=== PATIENT | male | born 1990 | race Caucasian/White ===

== ENCOUNTER → 2020-08-07 13:06 | Outpatient (BNVA) | payer MEDICAID, SELFPAY | PROVIDERS: PCP Internal Medicine; Referring Provider Internal Medicine; Visit Provider Anesthesiology | DX: M43.17 Spondylolisthesis, lumbosacral region (principal); M47.817 Spondylosis without myelopathy or radiculopathy, lumbosacral region; G89.4 Chronic pain syndrome | CPT/HCPCS: 99204 ==

== ENCOUNTER 2020-09-24 11:26 | Emergency (ER) | payer MEDICAID, SELFPAY ==
[2020-09-24 11:32] VITALS: BP 115/70; PULSE 75; RESP 18; TEMP 37.7; O2SAT 98; BMI 39.5
--- NOTE | 2020-09-24 11:37 | ED.URI ---
HPI - URI/Sore Throat General Chief Complaint: Upper Respiratory Symptoms Stated Complaint: headache, sore throat, chest pressure Time Seen by Provider: 09/24/20 11:34 Source: patient Mode of arrival: ambulatory Limitations: no limitations History of Present Illness HPI Narrative: States he has had some body aches and nasal congestion exposure to another co-worker at work with positive COVID here for COVID test. Denies any chest pain shortness of breath. Severity: mild Associated symptoms: denies other symptoms Treatments prior to arrival: none Related Data Home Medications Medication Instructions Recorded Confirmed acetaminophen 500 mg tablet 500 mg PO Q6H PRN 08/05/20 08/05/20 clonidine HCl 0.1 mg tablet 0.1 mg PO BEDTIME 08/05/20 08/05/20 cyclobenzaprine 10 mg tablet 10 mg PO BEDTIME 08/05/20 08/05/20 escitalopram oxalate 20 mg tablet 20 mg PO DAILY 08/05/20 08/05/20 famotidine 40 mg tablet 40 mg PO DAILY 08/05/20 08/05/20 fluconazole 100 mg tablet 100 mg PO DAILY 08/05/20 08/05/20 levalbuterol tartrate 45 2 inh INHALATION Q6H 08/05/20 08/05/20 mcg/actuation aerosol inhaler omeprazole 20 mg capsule,delayed 20 mg PO DAILY 08/05/20 08/05/20 release topiramate 100 mg tablet 100 mg PO BEDTIME 08/05/20 08/05/20 Previous Rx's Medication Instructions Recorded tizanidine 4 mg capsule 4 mg PO TID PRN 30 Days #90 cap 08/21/20 Allergies Allergy/AdvReac Type Severity Reaction Status Date / Time ibuprofen [From Motrin] Allergy Unknown UNKNOWN Unverified 07/20/20 15:44 Review of Systems Review of Systems: Constitutional: No Weight loss, No Fever, No Chills, No Night Sweats, No Fatigue, No Malaise ENT/Mouth: No Hearing loss, No Ear Pain, + Nasal Congestion, No Sinus Pain, No Hoarseness, No sore throat, + Rhinorrhea, No Swallowing Difficulty Eyes: No Eye Pain, No Swelling, No Redness, No Foreign Body, No Discharge, No Vision Changes Cardiovascular: No Chest Pain, No SOB, No Dyspnea on Exertion, No Orthopnea, No Edema, No Palpitations Respiratory: No Cough, No Sputum, No Wheezing, No Smoke Exposure, No Dyspnea Gastrointestinal: No Nausea, No Vomiting, No Diarrhea, No Constipation, No abdominal Pain, No Hematochezia, No Melena Genitourinary: no irregular bleeding, No Dysuria, No Urinary Frequency, No Hematuria, No Urinary Incontinence, No Urgency, No Flank Pain, No Urinary Flow Changes, No Hesitancy Musculoskeletal: No joint pain, No Myalgias, No Joint Swelling Skin: No Skin Lesions, No rash Neuro: No Weakness, No Numbness, No Paresthesias, No Loss of Consciousness, No Dizziness, No Headache Psych: No Anxiety/Panic, No Depression Heme/Lymph: No Bruising, No Bleeding,No Lymphadenopathy Endocrine: No Polyuria, No Polydipsia, No Temperature Intolerance Yes all other systems are reviewed and are negative [facility] Past Medical History Medical History (Updated 09/24/20 @ 11:36 by Wilian Salinas NP) Colon polyps Surgical History (Updated 07/31/20 @ 15:46 by Antonia Edmondson) History of gastric bypass Status post right foot surgery Social History Social History Advance Directives: No Advance Directives Information Provided: Yes Physical Exam Vital Signs: Vital Signs: Last Vital Signs Temp 99.9 F 09/24/20 11:32 Pulse 75 09/24/20 11:32 Resp 18 09/24/20 11:32 BP 115/70 09/24/20 11:32 Pulse Ox 98 09/24/20 11:32 Body Mass Index 39.5 Const: General: cooperative and healthy appearing; No acute distress or intoxicated appearing Nutritional Appearance: average body habitus Orientation/consciousness: patient oriented x3 HENMT: Head: Yes normal to inspection Ears: hearing grossly normal bilaterally Eyes: General: appearance normal, both eyes and all related structures Visual Curtis: normal visual curtis by confrontation Neck: Neck: Yes normal visual inspection, No positive Brudzinski's sign, No positive Kernig's sign and No tender Thyroid: Thyroid normal Chest: Chest palpation & inspection: normal inspection of the chest Resp: Effort & Inspection: normal respiratory effort Cardio: Jugular venous distension: no JVD GI: Inspection: Yes normal to inspection Percussion: Yes normal to percussion Auscultation: normal bowel sounds : General: Yes no CVA tenderness Back/Spine/Pelvis: Back: no CVA tenderness Skin: General skin exam: no rashes or lesions noted Neuro: General: patient oriented x3 Extrem: General: Yes normal to inspection MDM - URI/Sore Throat Differential Diagnosis Differential diagnosis: Likely upper respiratory infection and viral infection Discharge Plan Discharge Clinical Impression: Acute viral syndrome Patient Disposition: Home, Self-Care Instructions: Viral Syndrome (ED) Additional Instructions: Remain on working to get a negative COVID test The COVID test may take 3-5 days to result We will call with results even if positive or negative Thank you Prescriptions: No Action tizanidine 4 mg capsule 4 mg PO TID PRN (Reason: muscle spasticity) 30 Days Qty: 90 RF: 12 clonidine HCl 0.1 mg tablet 0.1 mg PO BEDTIME RF: 0 topiramate [Topamax] 100 mg tablet 100 mg PO BEDTIME RF: 0 escitalopram oxalate [Lexapro] 20 mg tablet 20 mg PO DAILY RF: 0 famotidine 40 mg tablet 40 mg PO DAILY RF: 0 omeprazole 20 mg capsule,delayed release(DR/EC) 20 mg PO DAILY RF: 0 acetaminophen [Acetaminophen Extra Strength] 500 mg tablet 500 mg PO Q6H PRNRF: 0 cyclobenzaprine 10 mg tablet 10 mg PO BEDTIME RF: 0 fluconazole 100 mg tablet 100 mg PO DAILY RF: 0 levalbuterol tartrate [Xopenex HFA] 45 mcg/actuation HFA aerosol inhaler 2 inh inhalation Q6H RF: 0 Referrals: Ad Shearer MD [Primary Care Provider] - 1 week (Phone this) Stand Alone Forms: Work/School Release
== END 2020-09-24 12:19 | disposition home or self-care (01) ==
PROVIDERS: Nurse Practitioner Primary Care; Emergency Provider Emergency Medicine; PCP Internal Medicine
DX: B34.9 Viral infection, unspecified (principal); R51.9 Headache, unspecified; Z20.828 Contact with and (suspected) exposure to other viral communicable diseases; Z79.899 Other long term (current) drug therapy
CPT/HCPCS: 99282; 99283; U0003

== ENCOUNTER 2021-01-09 18:44 | Emergency (ER) | payer MEDICAID, SELFPAY ==
--- NOTE | ~2021-01-09 | XR_ITS ---
Examination: XR foot RT min 3V, XR ankle RT min 3V Indication: Pain Comparison: No pertinent prior studies are currently available for comparison. Technique: 3 views of the right foot including a lateral view of the foot and ankle with 2 additional views the right ankle obtained Findings: Bones are in normal anatomic alignment with no acute fracture or dislocation seen. Small calcaneal heel spurs at the attachment point of the Achilles tendon and plantar aponeurosis. XR/XR foot RT min 3V Impression: No acute bony normality.
--- NOTE | ~2021-01-09 | XR_ITS ---
Examination: XR foot RT min 3V, XR ankle RT min 3V Indication: Pain Comparison: No pertinent prior studies are currently available for comparison. Technique: 3 views of the right foot including a lateral view of the foot and ankle with 2 additional views the right ankle obtained Findings: Bones are in normal anatomic alignment with no acute fracture or dislocation seen. Small calcaneal heel spurs at the attachment point of the Achilles tendon and plantar aponeurosis. XR/XR ankle RT min 3V Impression: No acute bony normality.
[2021-01-09 19:26] VITALS: BP 134/84; PULSE 72; RESP 16; TEMP 36.7; O2SAT 99; BMI 39.5
--- NOTE | 2021-01-09 20:59 | ED.EXTPRO ---
HPI - Extremity Problem General Chief complaint: Extremity Problem Stated complaint: foot pain Time Seen by Provider: 01/09/21 20:58 Source: patient Mode of arrival: ambulatory Limitations: no limitations History of Present Illness MD Complaint: extremity pain Onset (ago): week(s) (3) Pain Consistency: intermittent Location: right and lower extremity Quality: stabbing and aching Radiation: none Relieving factors: nothing Exacerbating factors: range of motion, weight bearing, walking and palpation Associated symptoms: denies other symptoms Context: other (hx of plantar fasciitis) Related Data Home Medications Medication Instructions Recorded Confirmed acetaminophen 500 mg tablet 500 mg PO Q6H PRN 08/05/20 08/05/20 clonidine HCl 0.1 mg tablet 0.1 mg PO BEDTIME 08/05/20 08/05/20 cyclobenzaprine 10 mg tablet 10 mg PO BEDTIME 08/05/20 08/05/20 escitalopram oxalate 20 mg tablet 20 mg PO DAILY 08/05/20 08/05/20 famotidine 40 mg tablet 40 mg PO DAILY 08/05/20 08/05/20 fluconazole 100 mg tablet 100 mg PO DAILY 08/05/20 08/05/20 levalbuterol tartrate 45 2 inh INHALATION Q6H 08/05/20 08/05/20 mcg/actuation aerosol inhaler omeprazole 20 mg capsule,delayed 20 mg PO DAILY 08/05/20 08/05/20 release topiramate 100 mg tablet 100 mg PO BEDTIME 08/05/20 08/05/20 Previous Rx's Medication Instructions Recorded tizanidine 4 mg capsule 4 mg PO TID PRN 30 Days #90 cap 08/21/20 prednisone 40 mg PO DAILY 5 Days #10 tab 01/09/21 Allergies Allergy/AdvReac Type Severity Reaction Status Date / Time ibuprofen [From Motrin] AdvReac Unknown UNKNOWN Verified 01/09/21 19:31 Review of Systems Review of Systems: Constitutional : No Fever, No Chills ENT/Mouth : No Ear Pain, No Hoarseness, No sore throat Eyes: No Eye Pain, No Swelling, No Redness, No Foreign Body Cardiovascular : No Chest Pain, No SOB Respiratory : No Cough, No Dyspnea Musculoskeletal : positive joint pain, No Myalgias, No Joint Swelling Skin : No Skin lacerations, No rash Neuro : No Weakness, No Numbness, No Loss of Consciousness, No Dizziness, No Headache Psych : No Anxiety/Panic, No Depression [facility] Past Medical History Medical History Anxiety Bipolar 1 disorder Colon polyps Depression Plantar fasciitis Skin graft disorder Surgical History History of gastric bypass Status post right foot surgery Social History Social History Alcohol intake: never Smoked in Last 30 Days: No Use of substances other than those prescribed or required for medical reasons: No Any prior treatment program specific to substance use: No Advance Directives: No Advance Directives Information Provided: Yes Physical Exam Vital Signs: Vital Signs: Last Vital Signs Temp 98.0 F 01/09/21 19:26 Pulse 72 01/09/21 19:26 Resp 16 01/09/21 19:26 BP 134/84 01/09/21 19:26 Pulse Ox 99 01/09/21 19:26 Body Mass Index 39.5 Appearance: Alert. Oriented X3. No acute distress. Eyes: Pupils equal, round and reactive to light. ENT: Pharynx normal. Neck: Normal inspection. Neck supple. CVS: Pulses normal. Respiratory: No respiratory distress. Abdomen: Soft and no trauma Skin: Skin warm and dry. Normal skin color. Normal skin turgor. Extremities: No lower extremity edema. R foot ttp along the 5th MTP no signs of trauma Neuro: Oriented X 3. No motor deficit. No sensory deficit. Procedures Orthopedic Splinting/Casting Injury #1: Side: right Lower Extremity Injury Location: foot Lower Extremity Immobilizer: boot orthosis MDM - Extremity (Nontraumatic) MDM Narrative Medical decision making narrative: 30 yo male R foot pain with hx of plantar fasciitis has received cortisone ij in past - no trauma, NV intact, xrays negative at this time, will give steroids and place in boot refer to his doctor Discharge Plan Discharge Clinical Impression: Plantar fasciitis Calcaneal spur Qualifiers: Laterality: right Qualified Code(s): M77.31 - Calcaneal spur, right foot Patient Disposition: Home, Self-Care Instructions: Plantar Fasciitis (ED), Heel Spur (ED) Additional Instructions: return to ED for any worsening symptoms or concerns wear boot as needed for comfort Prescriptions: New prednisone 20 mg tablet 40 mg PO DAILY 5 Days Qty: 10 RF: 0 No Action tizanidine 4 mg capsule 4 mg PO TID PRN (Reason: muscle spasticity) 30 Days Qty: 90 RF: 12 clonidine HCl 0.1 mg tablet 0.1 mg PO BEDTIME RF: 0 topiramate [Topamax] 100 mg tablet 100 mg PO BEDTIME RF: 0 escitalopram oxalate [Lexapro] 20 mg tablet 20 mg PO DAILY RF: 0 famotidine 40 mg tablet 40 mg PO DAILY RF: 0 omeprazole 20 mg capsule,delayed release(DR/EC) 20 mg PO DAILY RF: 0 acetaminophen [Acetaminophen Extra Strength] 500 mg tablet 500 mg PO Q6H PRNRF: 0 cyclobenzaprine 10 mg tablet 10 mg PO BEDTIME RF: 0 fluconazole 100 mg tablet 100 mg PO DAILY RF: 0 levalbuterol tartrate [Xopenex HFA] 45 mcg/actuation HFA aerosol inhaler 2 inh inhalation Q6H RF: 0 Referrals: [facility] [Primary Care Provider] - 2 days (if not better)
== END 2021-01-09 21:28 | disposition home or self-care (01) ==
PROVIDERS: Emergency Provider Emergency Medicine
DX: M72.2 Plantar fascial fibromatosis (principal); M79.671 Pain in right foot
CPT/HCPCS: 73610; 73630; 99283; 99284

== ENCOUNTER 2021-04-24 10:14 | Emergency (ER) | payer MEDICAID, SELFPAY ==
[2021-04-24 10:34] VITALS: BP 114/66; PULSE 74; RESP 16; TEMP 36.6; O2SAT 98; BMI 39.5
--- NOTE | 2021-04-24 11:27 | ED.BACK ---
HPI - Back Pain/Injury General Chief Complaint: Back Pain/Injury Stated Complaint: back pain Time Seen by Provider: 04/24/21 11:27 Source: patient Mode of arrival: ambulatory Limitations: no limitations History of Present Illness HPI Narrative: 30 y/o male with history of chronic back pain who presents with acute worsening of pain that started this morning when he bent down to tie his shoes and his whole lower back tightened up and he was stuck. He slowly was able to stand and then was having shoot pains down his left leg. He denies numbness, tingling, weakness or incontinence. No fall or trauma. He took his home tizanadine and tylenol [employer] but pain persisted and he could not go into work today. MD elicited complaint: back pain and back injury Pertinent past history: prior back pain Timing: constant Severity: similar to previous episodes Related Data Home Medications Medication Instructions Recorded Confirmed acetaminophen 500 mg tablet 500 mg PO Q6H PRN 08/05/20 08/05/20 clonidine HCl 0.1 mg tablet 0.1 mg PO BEDTIME 08/05/20 08/05/20 cyclobenzaprine 10 mg tablet 10 mg PO BEDTIME 08/05/20 08/05/20 escitalopram oxalate 20 mg tablet 20 mg PO DAILY 08/05/20 08/05/20 famotidine 40 mg tablet 40 mg PO DAILY 08/05/20 08/05/20 fluconazole 100 mg tablet 100 mg PO DAILY 08/05/20 08/05/20 levalbuterol tartrate 45 2 inh INHALATION Q6H 08/05/20 08/05/20 mcg/actuation aerosol inhaler omeprazole 20 mg capsule,delayed 20 mg PO DAILY 08/05/20 08/05/20 release topiramate 100 mg tablet 100 mg PO BEDTIME 08/05/20 08/05/20 Previous Rx's Medication Instructions Recorded tizanidine 4 mg capsule 4 mg PO TID PRN 30 Days #90 cap 08/21/20 prednisone 40 mg PO DAILY 5 Days #10 tab 01/09/21 Allergies Allergy/AdvReac Type Severity Reaction Status Date / Time ibuprofen [From Motrin] AdvReac Unknown UNKNOWN Verified 01/09/21 19:31 Review of Systems Review of Systems: Constitutional: No Fever, No Chills Cardiovascular: No Chest Pain, No SOB Respiratory: No Cough, No Sputum Gastrointestinal: No Nausea, No Vomiting, No Diarrhea, No abdominal Pain Genitourinary: No Dysuria, No Urinary Frequency, No Hematuria Musculoskeletal: +joint pain, + Myalgias Skin: No Skin Lesions, No rash Neuro: No Weakness, No Numbness, No Dizziness, No Headache Psych: No Anxiety/Panic, No Depression Heme/Lymph: No Bruising, No Lymphadenopathy PMFSH Past Medical History Attestation statement: The following information was validated with the patient. Medical History Anxiety Bipolar 1 disorder Colon polyps Depression Plantar fasciitis Skin graft disorder Surgical History History of gastric bypass Status post right foot surgery Social History Social History Alcohol intake: never Advance Directives: No Advance Directives Information Provided: No Physical Exam Vital Signs: Vital Signs: Last Vital Signs Temp 97.9 F 04/24/21 10:34 Pulse 74 04/24/21 10:34 Resp 17 04/24/21 12:23 BP 114/66 04/24/21 10:34 Pulse Ox 98 04/24/21 10:34 Body Mass Index 39.5 Appearance: Alert. Oriented X3. No acute distress. HEENT: normal inspection CVS: Normal heart rate and rhythm. Pulses normal. Respiratory: No respiratory distress. Skin: Skin warm and dry. Normal skin color. Normal skin turgor. No rashes. Back: left lower lumbar soft tissue tenderness with palpable spasm of the muscles. no spinal tenderness Extremities: atraumatic, no LE edema. +straight leg raise on the left Neuro: Oriented X 3. No motor deficit. No sensory deficit. Course Course Course Narrative: 30 y/o male presenting with acute on chronic LBP after he was tying his shoes and had his lower back tense up. Clinical presentation and examination are consistent with acute lumbar strain and spasm. IM Toradol ordered and work note provided. Patient will f/u with his PCP and try to obtain PT referral. He will continue his medication regimen at home and limit activity. No red flag symptoms for LBP. He is stable for discharge home. Discharge Plan Discharge Clinical Impression: Strain of lumbar region Qualifiers: Encounter type: initial encounter Qualified Code(s): S39.012A - Strain of muscle, fascia and tendon of lower back, initial encounter Patient Disposition: Home, Self-Care Instructions: Low Back Strain (ED), Lower Back Exercises (ED) Additional Instructions: No bending, lifting or twisting. Use ice several times per day for 20 minutes at a time for the next 48 hours and then change to heat. Take your Tizanadine, Meloxicam and use Lidoderm patches as directed until your symptoms are improved. Follow up with your Primary Care Doctor this week. If your pain worsens, if you develop new numbness, tingling, weakness, loss of function or incontinence call 911 or come back to the ER right away for evaluation. Prescriptions: No Action tizanidine 4 mg capsule 4 mg PO TID PRN (Reason: muscle spasticity) 30 Days Qty: 90 RF: 12 prednisone 20 mg tablet 40 mg PO DAILY 5 Days Qty: 10 RF: 0 clonidine HCl 0.1 mg tablet 0.1 mg PO BEDTIME RF: 0 topiramate [Topamax] 100 mg tablet 100 mg PO BEDTIME RF: 0 escitalopram oxalate [Lexapro] 20 mg tablet 20 mg PO DAILY RF: 0 famotidine 40 mg tablet 40 mg PO DAILY RF: 0 omeprazole 20 mg capsule,delayed release(DR/EC) 20 mg PO DAILY RF: 0 acetaminophen [Acetaminophen Extra Strength] 500 mg tablet 500 mg PO Q6H PRNRF: 0 cyclobenzaprine 10 mg tablet 10 mg PO BEDTIME RF: 0 fluconazole 100 mg tablet 100 mg PO DAILY RF: 0 levalbuterol tartrate [Xopenex HFA] 45 mcg/actuation HFA aerosol inhaler 2 inh inhalation Q6H RF: 0 Stand Alone Forms: Work/School Release Interventions: ED Discharge Assessment Last Done: 04/24/21 12:24 Discharge Date/Time: 04/24/21 12:24
[2021-04-24] MEDS: Lidocaine 4 % Patch ADH..PATCH 1 PATCH TRANSDERMA (12:08)
[2021-04-24] MEDS: Ketorolac Tromethamine 60 MG/2 ML VIAL IM (12:09)
[2021-04-24 12:23] VITALS: RESP 17
== END 2021-04-24 12:24 | disposition home or self-care (01) ==
PROVIDERS: Emergency Provider Emergency Medicine Emergency Medical Services
DX: S39.012A Strain of muscle, fascia and tendon of lower back, initial encounter (principal); X50.1XXA Overexertion from prolonged static or awkward postures, initial encounter; Y93.89 Activity, other specified; Y92.9 Unspecified place or not applicable; Y99.9 Unspecified external cause status
CPT/HCPCS: 96372; 99284; J1885

== ENCOUNTER 2021-05-09 10:37 | Outpatient (REF) | payer MEDICAID, SELFPAY ==
--- NOTE | 2021-05-09 10:30 | EMG_ITS ---
This is a 31-year-old man with a history of anxiety, who comes in bilateral hand numbness. CURRENT MEDICATIONS: Clonidine, Topamax, Vistaril, and meloxicam. PHYSICAL EXAMINATION: On examination, he is alert and oriented with normal intellectual functions. Cranial nerves II through XII are normal. Muscle tone and strength are normal in all 4 extremities. Deep tendon reflexes symmetrical. No Tinel or Phalen sign. IMPRESSION: Carpal tunnel syndrome. Nerve conduction study: Moderate carpal tunnel syndrome bilaterally, slightly worse on the right. Normal EMG of the right C5-T1 innervated muscles. MD GLENN Triplett/MALI / [id number]
== END 2021-05-09 10:38 | disposition home or self-care (01) ==
LOC: HO.NEURO 10:37
PROVIDERS: Visit Provider Family Medicine
DX: G56.03 Carpal tunnel syndrome, bilateral upper limbs (principal)
CPT/HCPCS: 95885; 95913

== ENCOUNTER 2021-06-17 19:18 | Emergency (ER) | payer MEDICAID, SELFPAY ==
[2021-06-17 19:57] VITALS: BP 117/72; PULSE 72; RESP 16; TEMP 36.8; O2SAT 97; BMI 41.3
--- NOTE | 2021-06-17 21:38 | ED.EXTPRO ---
HPI - Extremity Problem General Chief complaint: Extremity Problem Stated complaint: heel pain Time Seen by Provider: 06/17/21 21:38 Source: patient Mode of arrival: ambulatory History of Present Illness HPI Narrative: 31-year-old male with known plantar fasciitis and received an injection into his heel few days ago and now is presenting with difficulty on having work 7 days straight and being required to wear heavy work boots that do not help the resolution of his plantar fasciitis. He is scheduled to have a repeat injection this week and is otherwise wearing dorsiflexion boot at night to the right foot which is the source of the plantar fasciitis. Otherwise he denies any redness/swelling to the right foot. Related Data Home Medications Medication Instructions Recorded Confirmed acetaminophen 500 mg tablet 500 mg PO Q6H PRN 08/05/20 08/05/20 (Acetaminophen Extra Strength) clonidine HCl 0.1 mg tablet 0.1 mg PO BEDTIME 08/05/20 08/05/20 cyclobenzaprine 10 mg tablet 10 mg PO BEDTIME 08/05/20 08/05/20 escitalopram oxalate 20 mg tablet 20 mg PO DAILY 08/05/20 08/05/20 (Lexapro) famotidine 40 mg tablet 40 mg PO DAILY 08/05/20 08/05/20 fluconazole 100 mg tablet 100 mg PO DAILY 08/05/20 08/05/20 levalbuterol tartrate 45 2 inh INHALATION Q6H 08/05/20 08/05/20 mcg/actuation aerosol inhaler (Xopenex HFA) omeprazole 20 mg capsule,delayed 20 mg PO DAILY 08/05/20 08/05/20 release topiramate 100 mg tablet (Topamax) 100 mg PO BEDTIME 08/05/20 08/05/20 Previous Rx's Medication Instructions Recorded tizanidine 4 mg capsule 4 mg PO TID PRN 30 Days #90 cap 08/21/20 prednisone 20 mg tablet 40 mg PO DAILY 5 Days #10 tab 01/09/21 Allergies Allergy/AdvReac Type Severity Reaction Status Date / Time ibuprofen [From Motrin] AdvReac Unknown UNKNOWN Verified 01/09/21 19:31 Review of Systems Review of Systems: Pertinent positives and negatives as stated in HPI 10 point review systems is otherwise negative. [facility] Past Medical History Source: nursing notes reviewed Medical History Anxiety Bipolar 1 disorder Colon polyps Depression Plantar fasciitis Skin graft disorder Surgical History History of gastric bypass Status post right foot surgery Social History Social History Alcohol intake: never Advance Directives: No Advance Directives Information Provided: No Physical Exam Vital Signs: Vital Signs: Last Vital Signs Temp 98.2 F 06/17/21 19:57 Pulse 72 06/17/21 19:57 Resp 16 06/17/21 19:57 BP 117/72 06/17/21 19:57 Pulse Ox 97 06/17/21 19:57 Body Mass Index 41.3 VITAL SIGNS: Reviewed. GENERAL: Well developed, well nourished, in no acute distress. HEAD: Normocephalic/atraumatic EYES: PERRLA, EOMI OROPHARYNX: no oral lesions noted, posterior pharynx clear LUNGS: Normal breath sounds. No adventitious sounds or accessory muscle use. SpO2<97> CARDIOVASCULAR: Regular rate and rhythm without noted murmurs ABDOMEN: Soft, non-tender, non-distended with bowel sounds. RIGHT FOOT: Scarring consistent with patient's history prior foot surgery, no erythema noted at injection site, tenderness at calcaneal insertion as well as along plantar distribution. Otherwise, palpable pulses, capillary refill less than 3 seconds and sensation intact SKIN: Inspection of the skin reveals no rashes NEUROLOGIC: Alert and oriented x 4. Course Course Course Narrative: 31-year-old male with history and clinical presentation consistent with plantar fasciitis and limited ability to adjust shoes for work conditions. Discussed with the patient placing gel inserts with adequate arch support as well as placing patient on a shoe profile for his work. Patient otherwise discharged home in stable condition. Discharge Plan Discharge Clinical Impression: Plantar fasciitis of right foot Patient Disposition: Home, Self-Care Instructions: Plantar Fasciitis (ED), Plantar Fasciitis Exercises (ED) Additional Instructions: 1. Please follow-up with your primary care provider in the next 2-3 days for re-evaluation. Return to the ER for acute worsening of symptoms. Prescriptions: No Action tizanidine 4 mg capsule 4 mg PO TID PRN (Reason: muscle spasticity) 30 Days Qty: 90 RF: 12 prednisone 20 mg tablet 40 mg PO DAILY 5 Days Qty: 10 RF: 0 clonidine HCl 0.1 mg tablet 0.1 mg PO BEDTIME RF: 0 topiramate [Topamax] 100 mg tablet 100 mg PO BEDTIME RF: 0 escitalopram oxalate [Lexapro] 20 mg tablet 20 mg PO DAILY RF: 0 famotidine 40 mg tablet 40 mg PO DAILY RF: 0 omeprazole 20 mg capsule,delayed release(DR/EC) 20 mg PO DAILY RF: 0 acetaminophen [Acetaminophen Extra Strength] 500 mg tablet 500 mg PO Q6H PRNRF: 0 cyclobenzaprine 10 mg tablet 10 mg PO BEDTIME RF: 0 fluconazole 100 mg tablet 100 mg PO DAILY RF: 0 levalbuterol tartrate [Xopenex HFA] 45 mcg/actuation HFA aerosol inhaler 2 inh inhalation Q6H RF: 0 Referrals: [facility] [Primary Care Provider] - 2 days Stand Alone Forms: Work/School Release
== END 2021-06-17 22:05 | disposition home or self-care (01) ==
PROVIDERS: Emergency Provider Student in an Organized Health Care Education/Training Program
DX: M72.2 Plantar fascial fibromatosis (principal); Z98.84 Bariatric surgery status; Z79.899 Other long term (current) drug therapy
CPT/HCPCS: 99283

== ENCOUNTER 2021-09-27 20:21 | Emergency (ER) | payer MEDICAID, SELFPAY ==
[2021-09-27 20:29] VITALS: BP 144/85; PULSE 73; RESP 18; TEMP 36.7; O2SAT 98; BMI 42.4
--- NOTE | 2021-09-27 21:38 | ED_ITS ---
HPI - Extremity Problem General Chief complaint: Extremity Injury, Lower Stated complaint: Foot pain Time Seen by Provider: 09/27/21 20:31 Source: patient Mode of arrival: ambulatory Limitations: no limitations History of Present Illness HPI Narrative: patient with history of plantar fasciitis noticed pain at the A chilles tendon insertion for last few days tender to touch, no redness no injury Related Data Home Medications Medication Instructions Recorded Confirmed acetaminophen 500 mg tablet 500 mg PO Q6H PRN 08/05/20 08/05/20 (Acetaminophen Extra Strength) clonidine HCl 0.1 mg tablet 0.1 mg PO BEDTIME 08/05/20 08/05/20 cyclobenzaprine 10 mg tablet 10 mg PO BEDTIME 08/05/20 08/05/20 escitalopram oxalate 20 mg tablet 20 mg PO DAILY 08/05/20 08/05/20 (Lexapro) famotidine 40 mg tablet 40 mg PO DAILY 08/05/20 08/05/20 fluconazole 100 mg tablet 100 mg PO DAILY 08/05/20 08/05/20 levalbuterol tartrate 45 2 inh INHALATION Q6H 08/05/20 08/05/20 mcg/actuation aerosol inhaler (Xopenex HFA) omeprazole 20 mg capsule,delayed 20 mg PO DAILY 08/05/20 08/05/20 release topiramate 100 mg tablet (Topamax) 100 mg PO BEDTIME 08/05/20 08/05/20 Previous Rx's Medication Instructions Recorded prednisone 20 mg tablet 40 mg PO DAILY 5 Days #10 tab 01/09/21 tizanidine 4 mg capsule 4 mg PO TID PRN 30 Days #90 cap 09/12/21 diclofenac epolamine 1.3 % 1 patch TOPICAL BID #30 ea 09/27/21 transdermal 12 hour patch Allergies Allergy/AdvReac Type Severity Reaction Status Date / Time ibuprofen [From Motrin] AdvReac Unknown UNKNOWN Verified 09/27/21 20:29 Review of Systems Review of Systems: Yes all other systems are reviewed and are negative [facility] Past Medical History Medical History Absence of kidney Anxiety Bipolar 1 disorder Colon polyps Depression Plantar fasciitis Skin graft disorder Surgical History History of gastric bypass Status post right foot surgery Social History Social History Alcohol intake: never Advance Directives: No Advance Directives Information Provided: No Physical Exam Vital Signs: Vital Signs: Last Vital Signs Temp 98.1 F 09/27/21 20:29 Pulse 73 09/27/21 20:29 Resp 18 09/27/21 20:29 BP 144/85 H 09/27/21 20:29 Pulse Ox 98 09/27/21 20:29 Body Mass Index 42.4 Const: General: no acute distress and well developed Extrem: Ankle/foot/toe images: 1. tender to touch at the site of Achilles tendon insertion no local erythema or swelling good range of movement tendons MDM - Extremity (Nontraumatic) MDM Narrative Medical decision making narrative: patient clinically with tendon Achilles tendinitis no signs of infection we give diclofenec sodium patch , patient already on tizanidine advised to follow with PCP as needed Discharge Plan Discharge Clinical Impression: Achilles tendinitis, right leg Patient Disposition: Home, Self-Care Instructions: Achilles Tendinitis (ED) Additional Instructions: rest to your right foot apply diclofenac sodium patch locally Prescriptions: New diclofenac epolamine 1.3 % patch 12 hour 1 patch topical BID Qty: 30 RF: 0 No Action tizanidine 4 mg capsule 4 mg PO TID PRN (Reason: muscle spasticity) 30 Days Qty: 90 RF: 12 prednisone 20 mg tablet 40 mg PO DAILY 5 Days Qty: 10 RF: 0 clonidine HCl 0.1 mg tablet 0.1 mg PO BEDTIME RF: 0 topiramate [Topamax] 100 mg tablet 100 mg PO BEDTIME RF: 0 escitalopram oxalate [Lexapro] 20 mg tablet 20 mg PO DAILY RF: 0 famotidine 40 mg tablet 40 mg PO DAILY RF: 0 omeprazole 20 mg capsule,delayed release(DR/EC) 20 mg PO DAILY RF: 0 acetaminophen [Acetaminophen Extra Strength] 500 mg tablet 500 mg PO Q6H PRNRF: 0 cyclobenzaprine 10 mg tablet 10 mg PO BEDTIME RF: 0 fluconazole 100 mg tablet 100 mg PO DAILY RF: 0 levalbuterol tartrate [Xopenex HFA] 45 mcg/actuation HFA aerosol inhaler 2 inh inhalation Q6H RF: 0
[2021-09-27] MEDS: Ketorolac Tromethamine 60 MG/2 ML VIAL IM (22:00)
== END 2021-09-27 22:26 | disposition home or self-care (01) ==
PROVIDERS: Emergency Provider Internal Medicine; PCP Internal Medicine
DX: M76.61 Achilles tendinitis, right leg (principal); Z79.899 Other long term (current) drug therapy
CPT/HCPCS: 96372; 99284; J1885

== ENCOUNTER 2021-11-20 07:02 | Day surgery (SDC) | payer MEDICAID, SELFPAY ==
--- NOTE | 2021-11-19 10:14 | HO.ANESPROP2 ---
Documented by User: Fadumo Davison NP 11/19/21 10:16 HPI - Anesthesia Eval Consult details Narrative: 31yo M for Colonoscopy PMFSH Active Problems Active Problems: All Active Problems (Updated 09/28/21 @ 00:01 by Paolo Oro) Spondylolisthesis at L5-S1 level (Acute) Spondylosis, lumbosacral (Acute) Chronic pain syndrome (Acute) Past Medical History Medical History Absence of kidney Anxiety Bipolar 1 disorder Colon polyps Depression Plantar fasciitis Skin graft disorder Surgical History Surgical History History of gastric bypass Status post right foot surgery Social History Social History Alcohol intake: never Patient Tobacco Use Status: Never used Tobacco Use of substances other than those prescribed or required for medical reasons: Yes Substance Use Frequency: Daily Advance Directives: No Advance Directives Information Provided: Yes Recently lost weight without trying: No Meds Allergies Allergy/AdvReac Type Severity Reaction Status Date / Time ibuprofen [From Motrin] AdvReac Unknown UNKNOWN Verified 09/27/21 20:29 Home Medications Medication Instructions Recorded Confirmed Last Taken Type acetaminophen 500 mg tablet 500 mg PO Q6H PRN 08/05/20 08/05/20 Unknown History (Acetaminophen Extra Strength) clonidine HCl 0.1 mg tablet 0.1 mg PO BEDTIME 08/05/20 08/05/20 11/20/21 History 0.1mg cyclobenzaprine 10 mg tablet 10 mg PO BEDTIME 08/05/20 08/05/20 Unknown History escitalopram oxalate 20 mg tablet 20 mg PO DAILY 08/05/20 08/05/20 Unknown History (Lexapro) famotidine 40 mg tablet 40 mg PO DAILY 08/05/20 08/05/20 Unknown History fluconazole 100 mg tablet 100 mg PO DAILY 08/05/20 08/05/20 Unknown History levalbuterol tartrate 45 2 inh INHALATION Q6H 08/05/20 08/05/20 Unknown History mcg/actuation aerosol inhaler (Xopenex HFA) omeprazole 20 mg capsule,delayed 20 mg PO DAILY 10/03/20 10/03/20 Unknown History release topiramate 100 mg tablet (Topamax) 100 mg PO BEDTIME 08/05/20 08/05/20 Unknown History Exam Exam Date and Time: November 19, 2021 1014 Assessment and Plan Assessment Anesthesia Assessment: Chart Reviewed Documented by User: Adelina Hardy MD 11/20/21 08:19 PMFSH Active Problems Active Problems: All Active Problems (Updated 09/28/21 @ 00:01 by Paolo Oro) Spondylolisthesis at L5-S1 level (Acute) Spondylosis, lumbosacral (Acute) Chronic pain syndrome (Acute) pt. has one kidney Past Medical History Medical History Absence of kidney Anxiety Bipolar 1 disorder Colon polyps Depression Plantar fasciitis Skin graft disorder Functional capacity: independent ambulation Family History Family history of problems with anesthesia: No Surgical History Surgical History History of gastric bypass Status post right foot surgery History of Problems with Anesthesia: No Social History Social History Alcohol intake: never Patient Tobacco Use Status: Never used Tobacco Use of substances other than those prescribed or required for medical reasons: Yes Substance Use Frequency: Daily Advance Directives: No Advance Directives Information Provided: Yes Recently lost weight without trying: No Meds Allergies Allergy/AdvReac Type Severity Reaction Status Date / Time ibuprofen [From Motrin] AdvReac Unknown UNKNOWN Verified 09/27/21 20:29 Home Medications Medication Instructions Recorded Confirmed Last Taken Type acetaminophen 500 mg tablet 500 mg PO Q6H PRN 08/05/20 08/05/20 Unknown History (Acetaminophen Extra Strength) clonidine HCl 0.1 mg tablet 0.1 mg PO BEDTIME 08/05/20 08/05/20 11/20/21 History 0.1mg cyclobenzaprine 10 mg tablet 10 mg PO BEDTIME 08/05/20 08/05/20 Unknown History escitalopram oxalate 20 mg tablet 20 mg PO DAILY 08/05/20 08/05/20 Unknown History (Lexapro) famotidine 40 mg tablet 40 mg PO DAILY 08/05/20 08/05/20 Unknown History fluconazole 100 mg tablet 100 mg PO DAILY 08/05/20 08/05/20 Unknown History levalbuterol tartrate 45 2 inh INHALATION Q6H 08/05/20 08/05/20 Unknown History mcg/actuation aerosol inhaler (Xopenex HFA) omeprazole 20 mg capsule,delayed 20 mg PO DAILY 08/05/20 08/05/20 Unknown History release topiramate 100 mg tablet (Topamax) 100 mg PO BEDTIME 08/05/20 08/05/20 Unknown History Exam Airway Mallampati Class: II TM Dist: >3cm Neck ROM: Full Heart: RRR Lungs: CTA Assessment and Plan Final Anesthetic Review Family History of Problems with Anesthesia: No History of Problems with Anesthesia: No ASA Class: III Final Preanesthetic Review: No Changes in Pt Med Stat, Meds/Allgs Chart Reviewed, Consent Obtained/Reviewed and Anes Risks/Benef Reviewed Patient Risk: Low Procedure Risk: Low Anesthetic Plan Anesthetic Plan: MAC: Disposition: Standard PACU
[2021-11-20 07:22] VITALS: BMI 44.1
[2021-11-20 07:51] VITALS: BP 112/64; PULSE 90; RESP 18; TEMP 36.6; O2SAT 99
[2021-11-20] MEDS: Lactated Ringers 1,000 ML 100 ML IVCONT (07:52)
--- NOTE | 2021-11-20 08:14 | MHC.SHP ---
Pre-Procedural Eval Section A Date of Service: 11/20/21 The patient is an INPATIENT: No Changes since office visit: No Cold of Flu in the past 2 weeks, No New Medical Problems, No Changes in Medication and No Patient answered all questions The History & Physical has been completed within 30 days and I have reviewed it.: Yes Section B Chief Complaint: rectal bleeding Allergies: Allergies Allergy/AdvReac Type Severity Reaction Status Date / Time ibuprofen [From Motrin] AdvReac Unknown UNKNOWN Verified 09/27/21 20:29 Plan I have reviewed the history and physical and performed a pertinent physical examination on my patient. No changes have occurred unless specified.
--- NOTE | 2021-11-20 08:53 | P.BOP_ITS ---
Brief Operative Note Date of Service: 11/20/21 Pre-op diagnosis: rectal bleeding Post-op diagnosis: same (colon polyps) Procedure: colonoscopy Surgeon: Cristi Crawford Anesthesia: MAC Was an Healthcare Insurance Sales Agent used for this Procedure?: No Estimated blood loss (mL): 2 Pathology: other (polyps cecum) Condition: stable Disposition: PACU
[2021-11-20 08:57] VITALS: BP 94/49; PULSE 65; RESP 16; TEMP 36.8; O2SAT 99
[2021-11-20 09:12] VITALS: BP 94/50; PULSE 68; RESP 18; TEMP 36.2; O2SAT 97
--- NOTE | 2021-11-21 15:34 | OP_ITS ---
SURGEON: Cristi Crawford MD INDICATIONS: Rectal bleeding and Hemoccult-positive stools. PROCEDURE PERFORMED: Colonoscopy to the terminal ileum with biopsy. MEDICATIONS: Monitored anesthesia care. PROCEDURE DESCRIPTION: History and physical performed. The risks and benefits of the procedure were explained to the patient. Informed consent was obtained. The patient was placed in the left lateral decubitus position. A digital rectal exam was performed and it was found to be normal. The Olympus pediatric video colonoscope was introduced in the rectum and advanced to the cecum without difficulty. The cecum was identified by transillumination, palpation, and identification of ileocecal valve. Examination was performed. The scope was removed. He tolerated the procedure well and was returned to recovery area in stable condition. FINDINGS: The terminal ileum was examined and appeared normal. The visualized colonic mucosa was normal. In the cecum were 2 less than 5 mm sessile polyps which were removed with biopsy forceps. No other polyps were identified. The quality of the prep was good. There was no evidence of colitis. Retroflexed examination showed some hypertrophic anal papillae. IMPRESSION: Colon polyps. RECOMMENDATION: Follow up the biopsy results. MD MURTAZA Flores/MALI / [id number] MTDD
== END 2021-11-20 09:50 | disposition home or self-care (01) ==
PROVIDERS: PCP Internal Medicine; Visit Provider Internal Medicine Gastroenterology
PROC: 0DJD8ZZ Inspection of Lower Intestinal Tract, Via Natural or Artificial Opening Endoscopic (ICD-10-PCS; CPT 45378; principal; 2021-11-20 08:20)
DX: K62.5 Hemorrhage of anus and rectum (principal); R19.5 Other fecal abnormalities; Z86.010 Personal history of colon polyps; D12.0 Benign neoplasm of cecum; K62.89 Other specified diseases of anus and rectum; I10 Essential (primary) hypertension; J45.909 Unspecified asthma, uncomplicated; Q60.0 Renal agenesis, unilateral; F31.9 Bipolar disorder, unspecified; F14.11 Cocaine abuse, in remission; F43.10 Post-traumatic stress disorder, unspecified; Z79.899 Other long term (current) drug therapy; Z98.84 Bariatric surgery status
CPT/HCPCS: 45380; 88305

== ENCOUNTER 2021-12-26 19:09 | Emergency (ER) | payer MEDICAID, SELFPAY ==
--- NOTE | 2021-12-26 | ECG_ITS ---
Test Reason : CHEST PAIN Blood Pressure : / mmHG Vent. Rate : 087 BPM Atrial Rate : 087 BPM P-R Int : 164 ms QRS Dur : 094 ms QT Int : 358 ms P-R-T Axes : 042 -15 035 degrees QTc Int : 430 ms Normal sinus rhythm Minimal voltage criteria for LVH, may be normal variant ( R in aVL ) Borderline ECG When compared with ECG of 28-APR-2012 18:30, No significant change was found Referred By: Generic ED Physician Electronically Signed By:BETTY PETER
--- NOTE | ~2021-12-26 | CT_ITS ---
EXAMINATION: CT HEAD WITHOUT CONTRAST CLINICAL INFORMATION: Confusion and amnesia. COMPARISON: None. TECHNIQUE: Contiguous axial imaging was performed from the skull base to vertex without intravenous contrast. This CT examination was performed using dose optimization techniques as appropriate, variously including the following: * Automated exposure control * Adjustment of mA and/or kV according to patient size (this includes techniques or standardized protocols for targeted exams where dose is matched to indication/reason for exam; i.e. extremities or head) Use of iterative reconstruction technique DLP: 911 mGy-cm. FINDINGS: There is no evidence of acute intracranial hemorrhage or territorial infarction. No abnormal mass effect or midline shift is seen. Hurst to white matter differentiation is well preserved. No extra-axial fluid collections are identified. No hydrocephalus. No significant volume loss. There is no abnormal attenuation within the brain parenchyma. The osseous structures and soft tissues are normal. The mastoid air cells and visualized portions of the paranasal sinuses are well aerated. CT/CT head/brain wo con IMPRESSION: No acute intracranial pathology.
--- NOTE | ~2021-12-26 | XR_ITS ---
EXAMINATION: XR CHEST CLINICAL INFORMATION: Chest pain. COMPARISON: Chest radiograph dated from 11/13/2012. TECHNIQUE: 2 views of the chest were obtained. FINDINGS: No significant abnormality is noted involving the heart, lungs, mediastinum, bony thorax or soft tissues. XR/XR chest 2V IMPRESSION: Unremarkable examination.
[2021-12-26 19:21] VITALS: BP 126/66; PULSE 92; RESP 18; TEMP 36.5; O2SAT 98; BMI 41.8
[2021-12-26 19:39] LABS: MANUAL DIFF FLAG NO
[2021-12-26 19:42] LABS: Basophils Absolute Auto 0.1 X10*3/uL (0.0-0.2); Basophils Percent Auto 0.7 % (0-2); Eosinophils Absolute Auto 0.3 X10*3/uL (0.0-0.4); Eosinophils Percent Auto 3.9 % (0-4); Hematocrit 44.1 % (42.0-52.0); Hemoglobin 14.6 g/dl (14.0-18.0); Imm Gran Abs Auto 0.01 X10*3/uL (0.00-0.03); Imm Gran Pct Auto 0.1 % (0.0-0.4); Lymphocytes Absolute Auto 2.1 X10*3/uL (1.2-4.9); Lymphocytes Percent Auto 26.8 % (20-40); Mean Corpuscular HGB Conc 33.1 g/dl (31.0-36.0); Mean Corpuscular Hemoglobin 27.7 pg (27.0-33.0); Mean Corpuscular Volume 83.5 fL (80.0-98.0); Mean Platelet Volume 10.4 fL (9.4-12.4); Monocytes Absolute Auto 0.5 X10*3/uL (0.1-1.2); Monocytes Percent Auto 6.8 % (2-11); Neutrophils Absolute Auto 4.7 x10*3/uL (2.0-8.3); Neutrophils Percent Auto 61.7 % (45-73); Platelet Count 294 X10*3/uL (160-400); Red Blood Count 5.28 X10*6/uL (4.60-5.80); Red Cell Distribution Width 13.2 % (11.0-16.0); White Blood Count 7.7 X10*3/uL (4.8-10.8)
[2021-12-26 20:07] VITALS: BP 122/68; PULSE 68; RESP 16; TEMP 36.7; O2SAT 95
[2021-12-26 20:07] LABS: Anion Gap 11 (12-20); Blood Urea Nitrogen 12 mg/dL (9-16); Carbon Dioxide 25 mmol/L (22-29); Chloride 110 mmol/L (96-108); Creatinine Clr Calc Pharmacy 128.7; Estimated Glomerular Filt Rate > 60; Glucose Random 90 mg/dL (60-115); Potassium 4.3 mmol/L (3.3-5.1); Sodium 142 mmol/L (135-145)
[2021-12-26 20:12] LABS: Troponin-I High Sensitivity 10.2 ng/L (<3.5-35.0)
--- NOTE | 2021-12-26 21:31 | ED_ITS ---
HPI - General Adult General Chief complaint: General Medical Stated complaint: chest pain..felt confused when driving the car Time Seen by Provider: 12/26/21 21:31 Source: patient Mode of arrival: ambulatory Limitations: no limitations History of Present Illness HPI narrative: while driving patient had a sharp chest pain followed by confusion, crying, and anxious. Patient with a history of PTSD, Bipolar, panic attacks. The episode was 5 minutes but there were other things that he did not remember. Onset (ago): minute(s) Severity: moderate Quality: sharp Pain Consistency: constant Associated symptoms: confusion and chest pain Related Data Home Medications Medication Instructions Recorded Confirmed acetaminophen 500 mg tablet 500 mg PO Q6H PRN 08/05/20 08/05/20 (Acetaminophen Extra Strength) clonidine HCl 0.1 mg tablet 0.1 mg PO BEDTIME 08/05/20 08/05/20 cyclobenzaprine 10 mg tablet 10 mg PO BEDTIME 08/05/20 08/05/20 escitalopram oxalate 20 mg tablet 20 mg PO DAILY 08/05/20 08/05/20 (Lexapro) famotidine 40 mg tablet 40 mg PO DAILY 08/05/20 08/05/20 fluconazole 100 mg tablet 100 mg PO DAILY 08/05/20 08/05/20 levalbuterol tartrate 45 2 inh INHALATION Q6H 08/05/20 08/05/20 mcg/actuation aerosol inhaler (Xopenex HFA) omeprazole 20 mg capsule,delayed 20 mg PO DAILY 08/05/20 08/05/20 release topiramate 100 mg tablet (Topamax) 100 mg PO BEDTIME 08/05/20 08/05/20 Previous Rx's Medication Instructions Recorded prednisone 20 mg tablet 40 mg PO DAILY 5 Days #10 tab 01/09/21 tizanidine 4 mg capsule 4 mg PO TID PRN 30 Days #90 cap 09/12/21 diclofenac epolamine 1.3 % 1 patch TOPICAL BID #30 ea 09/27/21 transdermal 12 hour patch Allergies Allergy/AdvReac Type Severity Reaction Status Date / Time ibuprofen [From Motrin] AdvReac Unknown UNKNOWN Verified 12/26/21 19:20 Review of Systems Constitutional: Constitutional: Reports no additional constitutional complaints Eyes: Eyes: Reports no additional eye complaints ENT: Denies dizziness Cardiovascular: Cardiovascular: Reports no additional cardiovascular complaints Respiratory: Respiratory: Reports as per HPI Gastrointestinal: Gastrointestinal: Reports no additional gastrointestinal complaints Musculoskeletal: Musculoskeletal: Reports no additional musculoskeletal complaints Integumentary/Breasts: Skin/Breast: Denies rash Neurologic: Reports system reviewed and no additional complaints, except as documented, Denies dizziness and Denies Sensory deficit (Neuro) Psychiatric: Psychiatric: Denies anxiety REPLACED BY [facility] Past Medical History Medical History Absence of kidney Anxiety Bipolar 1 disorder Colon polyps Depression Plantar fasciitis Skin graft disorder Surgical History History of gastric bypass Status post right foot surgery Social History Social History Alcohol intake: never Patient Tobacco Use Status: Never used Tobacco Use of substances other than those prescribed or required for medical reasons: Yes Substance Use Type: Marijuana Substance Use Frequency Other:: Medical marijuana usage, smokes 1-2 times a day. Last Used Substance: Hours (ago) Any prior treatment program specific to substance use: No Advance Directives: No Physical Exam ED Vital Signs: Vital Signs - 24 hr 12/26/21 19:21 12/26/21 20:07 12/26/21 21:45 Temperature 97.7 F 98.1 F 98.1 F Pulse Rate 92 68 59 Respiratory Rate 18 16 15 Blood Pressure 126/66 122/68 148/89 H Pulse Oximetry 98 95 98 BMI result Body Mass Index 41.8 Const General: healthy appearing Nutritional Appearance: obese Orientation/consciousness: oriented to person and patient oriented x3 Limitations: no limitations HENMT Head: Yes normal to inspection Ears: external ears normal General nose exam: Normal external nose present Mouth: Normal oral and palatal mucosa present and oropharynx normal Throat: Yes posterior oropharynx normal Eyes General: appearance normal, both eyes and all related structures Neck Neck: Yes normal visual inspection Chest Chest palpation & inspection: normal inspection of the chest Resp Auscultation: clear to auscultation bilaterally Cardio Jugular venous distension: no JVD Rate: regular rate Rhythm: regular rhythm Heart sounds: S1 normal heart sound present and S2 normal heart sound present GI Inspection: Yes normal to inspection Palpation (GI): Soft to palpation, nontender and No hepatosplenomegaly present Auscultation: normal bowel sounds General: Yes no CVA tenderness Back/Spine/Pelvis Back: no CVA tenderness Skin General skin exam: no rashes or lesions noted Neuro General: oriented to person and patient oriented x3 Cranial nerves: Yes CN's II-XII intact bilaterally Motor exam (neuro): 5/5 motor strength present throughout Sensory Exam: No Sensory deficit (Neuro) Extrem General: Yes normal to inspection Psych Other: anxious Course Course Course Narrative: EKG #2, sinus 65, no st or twave changes Reevaluation(s) Reevaluation #1: Impression: panic attack, no evidence of cardiac issue, neurologically intact, head CT negative Time: 23:15 Medical Decision Making Lab Data Result diagrams: 12/26/21 19:34 12/26/21 19:34 Labs: Lab Results 12/26/21 12/26/21 12/26/21 Range/Units 19:34 19:34 19:34 WBC 7.7 (4.8-10.8) X10*3/uL RBC 5.28 (4.60-5.80) X10*6/uL Hgb 14.6 (14.0-18.0) g/dl Hct 44.1 (42.0-52.0) % MCV 83.5 (80.0-98.0) fL MCH 27.7 (27.0-33.0) pg MCHC 33.1 (31.0-36.0) g/dl RDW 13.2 (11.0-16.0) % Plt Count 294 (160-400) X10*3/uL MPV 10.4 (9.4-12.4) fL Immature Gran % (Auto) 0.1 (0.0-0.4) % Neut % (Auto) 61.7 (45-73) % Lymph % (Auto) 26.8 (20-40) % [place] % (Auto) 6.8 (2-11) % Eos % (Auto) 3.9 (0-4) % Baso % (Auto) 0.7 (0-2) % Lymph # (Auto) 2.1 (1.2-4.9) X10*3/uL [place] # (Auto) 0.5 (0.1-1.2) X10*3/uL Eos # (Auto) 0.3 (0.0-0.4) X10*3/uL Baso # (Auto) 0.1 (0.0-0.2) X10*3/uL Abs Immat Gran (auto) 0.01 (0.00-0.03) X10*3/uL Absolute Neuts (auto) 4.7 (2.0-8.3) x10*3/uL Absolute Nucleated RBC 0.000 (0.0-0.012) X10*3/uL Nucleated RBC % (auto) 0.0 (0.0-0.2) /100WBC Sodium 142 (135-145) mmol/L Potassium 4.3 (3.3-5.1) mmol/L Chloride 110 H (96-108) mmol/L Carbon Dioxide 25 (22-29) mmol/L Anion Gap 11 L (12-20) BUN 12 (9-16) mg/dL Creatinine 1.05 (0.5-1.4) mg/dL Estim Creat Clear Calc 128.7 Estimated GFR > 60 Random Glucose 90 (60-115) mg/dL Calcium 10.0 (8.4-10.2) mg/dL Troponin I High Sens 10.2 (<3.5-35.0) ng/L Imaging Data Chest x-ray: Radiologist's impression: FINDINGS: No significant abnormality is noted involving the heart, lungs, mediastinum, bony thorax or soft tissues. XR/XR chest 2V IMPRESSION: Unremarkable examination. CT scan - head: Radiologist's impression: FINDINGS: There is no evidence of acute intracranial hemorrhage or territorial infarction. No abnormal mass effect or midline shift is seen. Hurst to white matter differentiation is well preserved. No extra-axial fluid collections are identified. No hydrocephalus. No significant volume loss. There is no abnormal attenuation within the brain parenchyma. The osseous structures and soft tissues are normal. The mastoid air cells and visualized portions of the paranasal sinuses are well aerated. ? CT/CT head/brain wo con IMPRESSION: No acute intracranial pathology. ECG Data Interpretation: sinus 87, no st or twave changes Discharge Plan Discharge Clinical Impression: Panic attack, Chest pain, Acute confusion Patient Disposition: Home, Self-Care Instructions: Panic Attack (ED), Anxiety (ED), Noncardiac Chest Pain (ED) Prescriptions: No Action tizanidine 4 mg capsule 4 mg PO TID PRN (Reason: muscle spasticity) 30 Days Qty: 90 12RF prednisone 20 mg tablet 40 mg PO DAILY 5 Days Qty: 10 0RF diclofenac epolamine 1.3 % patch 12 hour 1 patch topical BID Qty: 30 0RF clonidine HCl 0.1 mg tablet 0.1 mg PO BEDTIME 0RF topiramate [Topamax] 100 mg tablet 100 mg PO BEDTIME 0RF escitalopram oxalate [Lexapro] 20 mg tablet 20 mg PO DAILY 0RF famotidine 40 mg tablet 40 mg PO DAILY 0RF omeprazole 20 mg capsule,delayed release(DR/EC) 20 mg PO DAILY 0RF acetaminophen [Acetaminophen Extra Strength] 500 mg tablet 500 mg PO Q6H PRN0RF cyclobenzaprine 10 mg tablet 10 mg PO BEDTIME 0RF fluconazole 100 mg tablet 100 mg PO DAILY 0RF levalbuterol tartrate [Xopenex HFA] 45 mcg/actuation HFA aerosol inhaler 2 inh inhalation Q6H 0RF Referrals: Ad Shearer MD [Primary Care Provider] - 1 week
--- NOTE | 2021-12-26 21:35 | ECG_ITS ---
Test Reason : chest pain Blood Pressure : / mmHG Vent. Rate : 065 BPM Atrial Rate : 065 BPM P-R Int : 174 ms QRS Dur : 094 ms QT Int : 392 ms P-R-T Axes : 051 -11 018 degrees QTc Int : 407 ms Normal sinus rhythm Minimal voltage criteria for LVH, may be normal variant ( R in aVL ) Borderline ECG When compared with ECG of 26-DEC-2021 19:25, No significant change was found Referred By: Nicho Mon Electronically Signed By:BETTY PETER
[2021-12-26 21:45] VITALS: BP 148/89; PULSE 59; RESP 15; TEMP 36.7; O2SAT 98
[2021-12-26] MEDS: LORazepam 1 MG TABLET PO (21:51)
== END 2021-12-26 23:34 | disposition home or self-care (01) ==
PROVIDERS: Emergency Provider Emergency Medicine; PCP Internal Medicine
DX: F41.0 Panic disorder [episodic paroxysmal anxiety] (principal); R07.9 Chest pain, unspecified; R41.0 Disorientation, unspecified; F41.9 Anxiety disorder, unspecified; F43.10 Post-traumatic stress disorder, unspecified; F31.9 Bipolar disorder, unspecified; F12.90 Cannabis use, unspecified, uncomplicated
CPT/HCPCS: 36415; 70450; 71046; 80048; 84484; 85025; 93005; 99284

== ENCOUNTER 2022-11-07 06:58 | Emergency (ER) | payer MEDICAID, SELFPAY ==
--- NOTE | ~2022-11-07 | XR_ITS ---
EXAMINATION: XR HIP, LEFT CLINICAL INFORMATION: Left hip pain since yesterday without trauma COMPARISON: None TECHNIQUE: Single view pelvis with 2 additional views of the left hip. FINDINGS: Bones and soft tissues are normal. No fracture. Alignment is anatomic. Hip joint space is maintained. XR/XR hip LT w PEL1V IMPRESSION: Normal left hip.
[2022-11-07 07:04] VITALS: BP 139/83; PULSE 76; RESP 18; TEMP 36.6; O2SAT 98; BMI 36.9
[2022-11-07] MEDS: Acetaminophen 325 MG TABLET 975 MG PO (07:12)
--- OUTSIDE RECORDS SUMMARY | 2022-11-07 07:49 | XMS_ITS ---
:1990 Author Organization [facility] Address [address] [place] [address] Care Team Providers Name Role Phone Cristi Crawford Jr Unavailable Unavailable PROBLEMS Type Condition ICD9-CM Code LHW28-DV Code Onset Condition SNO MED Code Dates Status Problem Rectal bleeding K62.5 Active 1206 3002 Problem Duodenal ulcer K26.9 Active 52367 009 Problem Abnormal R19.5 Active [id number] findings in stool ALLERGIES No Known Allergies ENCOUNTERS Encounter Location Date Diagnosis [place] [address], [facility] [address] [place] [address] [place] [address], [facility] [address] [place] [address] [place] [address], [facility] [address] [place] [address] [facility] [address] [place] [address] Nov, Rectal bleeding K62.5 ; HERMILA Forrester [id number] Positive c olorectal cancer screening using Cologuard test R 19.5 and Colon polyps K63 .[address] [place] [address], [facility] [address] [place] [address] [place] [address], Re ctal bleeding K62.5 [facility] [address] [place] [id number] stool R19.5 IMMUNIZATIONS Vaccine Route Administration Date Status Influenza Unknown Sep 19, 2021 Administered SOCIAL HISTORY Qualifiers Date Never Smoker REASON FOR REFERRAL FUNCTIONAL STATUS PLAN OF CARE Activity Details Future Appointment Provider Name:Cristi lopez Jr, 2023-01-17 09:00:00 AM, [address] [place] [address], [address] , [place], [address], Future/Pending Procedure COLONOSCOPY [id number] VITAL SIGNS Weight 291 lbs 2021-11-07 Height 68 in 2021-11-07 BMI 44.24 kg/m2 2021-11-07 Temperature 97.9 degrees Fahrenheit 2021-11-07 Blood pressure systolic 000 mm Hg 2021-11-07 Blood pressure diastolic 00 mm Hg 2021-11-07 MEDICATIONS Medication Instructions Dosage Frequency Start End Duration Statu s Date Date MiraLax (colon Orally begin at mixed with Nov, 1 day Active prep) 17 5:00 p.m. the Gatorade or 2021 GM/SCOOP day before the Crystal procedure Light cloNIDine HCl 30 Active 0.1 MG Topiramate 25 Orally Once a 1 tablet 24h 30 day(s) A ctive MG day Omeprazole 20 Orally Twice a 1 capsule 12h 04 Jun, 30 days A ctive MG day 2021 Cetirizine HCl 30 Active 10 MG Meloxicam 7.5 30 Active MG Vistaril 25 MG Orally every 8 1 capsule as 8h 30 da y(s) Active hrs needed tylenol 1 tab 14 days Active PROCEDURES Procedure Date Ordered Result Body Site DOC RSN FOR NOT SCREEN/REC F/U HBP Nov 07, 2021 Pt scrn tbco id as non user Nov 07, 2021 DOC MEDS VERIFIED W/PT OR RE Nov 07, 2021 COLONOSCOPY AND BIOPSY Nov 20, 2021 RESULTS Name Result Date Reference Range Pathology 2021-11-20 REASON FOR VISIT Patient presents today for weight loss, abdominal pain, pathology, rectal bleeding, rectal bleeding,labs request, Patient presents today for BLOOD IN STOOL Insurance Providers [facility] Member Patient Patient Patient Patient Patient Subscriber Subscriber Subscriber Group Insurance Plan Plan Plan Plan ID Relationship Address Phone Name Date of ID Name Date of No Type Insurance Insurance Insurance Coverage to Subscriber Address Phone Name Dates MEDICAID [id number] [place] self [place] [id number] [place] [id number] [place] [facility] [place] [address]
--- NOTE | 2022-11-07 10:04 | ED.EXTPRO ---
HPI - Extremity Problem General Chief complaint: General Medical Stated complaint: L hip pain. no inj Time Seen by Provider: 11/07/22 09:18 Source: patient Mode of arrival: ambulatory Limitations: no limitations History of Present Illness HPI Narrative: 32-year-old male presenting to the ER with complaints of left hip pain that started yesterday without any injury that he is aware of. He does work with heavy lifting and twisting and turning multiple times in the day. Although no obvious injury that he can recall. He reports walking makes the pain worse. He has tried [id number] Motrin and Tylenol and mild to no symptomatic relief. He denies any fevers, chills, dizziness, headaches, neck pain/stiffness, trouble swallowing or breathing, chest pain or shortness of breath, dyspnea exertion, orthopnea, palpitations, paresthesias, abdominal pain, flank pain, dysuria, hematuria, abnormal penile discharge, back pain, rashes, recent falls or trauma, lower extremity edema or calf tenderness or any other symptoms complaints or concerns at this time. MD Complaint: joint pain Onset (ago): day(s) (Yesterday) Pain Consistency: constant Location: left and lower extremity (Hip) Quality: aching Radiation: none Relieving factors: nothing Exacerbating factors: range of motion, walking and palpation Associated symptoms: denies other symptoms Related Data Home Medications Medication Instructions Recorded Confirmed acetaminophen 500 mg tablet 500 mg PO Q6H PRN 08/05/20 08/05/20 (Acetaminophen Extra Strength) clonidine HCl 0.1 mg tablet 0.1 mg PO BEDTIME 08/05/20 08/05/20 cyclobenzaprine 10 mg tablet 10 mg PO BEDTIME 08/05/20 08/05/20 escitalopram oxalate 20 mg tablet 20 mg PO DAILY 08/05/20 08/05/20 (Lexapro) famotidine 40 mg tablet 40 mg PO DAILY 08/05/20 08/05/20 fluconazole 100 mg tablet 100 mg PO DAILY 08/05/20 08/05/20 levalbuterol tartrate 45 2 inh inhalation Q6H 08/05/20 08/05/20 mcg/actuation aerosol inhaler (Xopenex HFA) omeprazole 20 mg capsule,delayed 20 mg PO DAILY 08/05/20 08/05/20 release topiramate 100 mg tablet (Topamax) 100 mg PO BEDTIME 08/05/20 08/05/20 Previous Rx's Medication Instructions Recorded prednisone 20 mg tablet 40 mg PO DAILY 5 days #10 tabs 01/09/21 tizanidine 4 mg capsule 4 mg PO TID PRN muscle spasticity 09/12/21 30 days #90 caps diclofenac epolamine 1.3 % 1 patch topical BID #30 ea 09/27/21 transdermal 12 hour patch cyclobenzaprine 10 mg tablet 10 mg PO Q8H #10 tabs 11/07/22 ketorolac 10 mg tablet 10 mg PO Q8H pain #10 tabs 11/07/22 prednisone 20 mg tablet 40 mg PO DAILY inflammation 5 days 11/07/22 #10 tabs Allergies Allergy/AdvReac Type Severity Reaction Status Date / Time ibuprofen [From Motrin] AdvReac Unknown UNKNOWN Verified 11/07/22 07:07 Review of Systems Review of Systems: Constitutional : No Weight loss, No Fever, No Chills, No Night Sweats, No Fatigue, No Malaise ENT/Mouth : No Hearing loss, No Ear Pain, No Nasal Congestion, No Sinus Pain, No Hoarseness, No sore throat, No Rhinorrhea, No Swallowing Difficulty Eyes: No Eye Pain, No Swelling, No Redness, No Foreign Body, No Discharge, No Vision Changes Cardiovascular : No Chest Pain, No SOB, No Dyspnea on Exertion, No Orthopnea, No Edema, No Palpitations Respiratory : No Cough, No Sputum, No Wheezing, No Smoke Exposure, No Dyspnea Gastrointestinal : No Nausea, No Vomiting, No Diarrhea, No Constipation, No abdominal Pain, No Hematochezia, No Melena Genitourinary : no irregular bleeding, No Dysuria, No Urinary Frequency, No Hematuria, No Urinary Incontinence, No Urgency, No Flank Pain, No Urinary Flow Changes, No Hesitancy Musculoskeletal : + left hip joint pain, No Myalgias, No Joint Swelling Skin : No Skin Lesions, No rash Neuro : No Weakness, No Numbness, No Paresthesias, No Loss of Consciousness, No Dizziness, No Headache Psych : No Anxiety/Panic, No Depression, No SI/HI/AH/VH, No Social Issues, Heme/Lymph: No Bruising, No Bleeding,No Lymphadenopathy Endocrine : No Polyuria, No Polydipsia, No Temperature Intolerance Yes all other systems are reviewed and are negative PMFSH Past Medical History Attestation statement: The following information was validated with the patient. Source: old records reviewed and nursing notes reviewed Medical History Absence of kidney Anxiety Bipolar 1 disorder Colon polyps Depression Plantar fasciitis Skin graft disorder Surgical History History of gastric bypass Status post right foot surgery Social History Social History Alcohol intake: never Patient Tobacco Use Status: Never used Tobacco Substance Use Type: Marijuana Advance Directives: No Physical Exam Vital Signs: Vital Signs: Last Vital Signs Temp 97.8 F 11/07/22 07:04 Pulse 76 11/07/22 07:04 Resp 18 11/07/22 07:04 BP 139/83 11/07/22 07:04 Pulse Ox 98 11/07/22 07:04 O2 Del Method 11/07/22 07:04 BMI result Body Mass Index 36.9 vital signs have been reviewed as normal and appeared to be correct. Blood pressure normal Heart rate normal. Respiration rate normal. Temperature normal. Oxygen saturation normal. Appearance: Alert. Oriented X3. No acute distress. Head: Normal external exam. Normocephalic. Atraumatic. Eyes: PERRLA. EOMI. Conjunctiva and sclera normal. Eyelids normal. ENT: Pharynx normal. Uvula midline. Moist mucous membranes. Neck: Normal inspection. Neck supple. FROM. CVS: Normal heart rate and rhythm. Respiratory: No respiratory distress. Painless inspiration. Skin: Skin warm and dry. Normal skin color. Normal skin turgor. No rashes/lesions/lacerations noted. Abdomen: Soft and nontender. No CVA tenderness is noted. Extremities: Patient mild tenderness palpation to the lateral aspect of the left hip. No signs of infection. No rashes are noted. He has full range of motion of the left hip joint. No obvious ligamentous or tendon injury noted. Not consistent muscle rupture. No lower extremity edema or calf tenderness is noted. Otherwise all other extremities exhibit normal range of motion nontender. Neuro: Oriented X 3. No motor deficit. No sensory deficit. Reflexes normal. Normal steady gait. No focal neuro deficits noted. Vascular: + radial pulses/+ 2 distal pedal pulses/+2 dorsalis pedis b/l. Normal cap refill. No cyanosis noted to upper extremity nails and lower extremity toes nails. Course Course Course Narrative: This patient presents with left hip pain suspicious for bursitis. He is able to flex and extend without any obvious ligamentous or tendon injury noted. There is no lower extremity more calf tenderness noted. There is no abdominal tenderness. There is no obvious hernias. He denies any testicular pain or any urinary symptoms. No CVA tenderness is noted. No rashes are noted. Normal steady gait. No rashes or signs of infection noted. Considered but doubt fracture, septic arthritis or acute unstable fracture or significant neurovascular compromise or DVT or PE or kidney stone due to H&P not consistent with this. X-ray obtained and negative for any acute processes. Patient most likely bursitis. Will DC home with symptomatic treatment instructions return if any new or worsening symptoms follow up with primary care provider. Patient understands agrees with this plan. Medications Administered Discontinued Medications Generic Name Dose Route Start Last Admin Trade Name Freq PRN Reason Stop Dose Admin Acetaminophen 975 mg 11/07/22 07:08 11/07/22 07:12 Acetaminophen 325 Mg Tablet PO 11/07/22 07:09 975 mg ONCE ONE Administration Medical Decision Making Independent Interpretation I performed an independent interpretation of an: Plain X-Ray Interpretation: Left hip and pelvis x-ray FINDINGS: Bones and soft tissues are normal. No fracture. Alignment is anatomic. Hip joint space is maintained. XR/XR hip LT w PEL1V IMPRESSION: Normal left hip. Radiology Impression Discussion of test interpretation with radiology: I have reviewed the radiologist's reading. Discharge Plan Discharge Clinical Impression: Bursitis of left hip Patient Disposition: Home, Self-Care Instructions: Hip Bursitis (ED) Prescriptions: New ketorolac 10 mg tablet 10 mg PO Q8H Qty: 10 0RF Rx Instructions: First dose given in the ER by IM and patient tolerated well cyclobenzaprine 10 mg tablet 10 mg PO Q8H Qty: 10 0RF prednisone 20 mg tablet 40 mg PO DAILY 5 Days Qty: 10 0RF No Action tizanidine 4 mg capsule 4 mg PO TID PRN (Reason: muscle spasticity) 30 Days Qty: 90 12RF prednisone 20 mg tablet 40 mg PO DAILY 5 Days Qty: 10 0RF diclofenac epolamine 1.3 % patch 12 hour 1 patch topical BID Qty: 30 0RF clonidine HCl 0.1 mg tablet 0.1 mg PO BEDTIME topiramate [Topamax] 100 mg tablet 100 mg PO BEDTIME escitalopram oxalate [Lexapro] 20 mg tablet 20 mg PO DAILY famotidine 40 mg tablet 40 mg PO DAILY omeprazole 20 mg capsule,delayed release(DR/EC) 20 mg PO DAILY acetaminophen [Acetaminophen Extra Strength] 500 mg tablet 500 mg PO Q6H PRN cyclobenzaprine 10 mg tablet 10 mg PO BEDTIME fluconazole 100 mg tablet 100 mg PO DAILY levalbuterol tartrate [Xopenex HFA] 45 mcg/actuation HFA aerosol inhaler 2 inh inhalation Q6H Referrals: Ad Shearer MD [Primary Care Provider] - 2 days Stand Alone Forms: Work/School Release Interventions: ED Discharge Assessment Last Done: 11/07/22 10:14 Discharge Date/Time: 11/07/22 10:14
== END 2022-11-07 10:14 | disposition home or self-care (01) ==
PROVIDERS: Emergency Provider Emergency Medicine Emergency Medical Services; PCP Internal Medicine
DX: M70.72 Other bursitis of hip, left hip (principal); M25.552 Pain in left hip; Z79.899 Other long term (current) drug therapy
CPT/HCPCS: 73502; 99283

== ENCOUNTER 2023-01-17 09:46 | Outpatient (REF) | payer MEDICAID, SELFPAY ==
[2023-01-17 11:28] LABS: Hematocrit 44.3 % (42.0-52.0); Hemoglobin 14.9 g/dl (14.0-18.0); Mean Corpuscular HGB Conc 33.6 g/dl (31.0-36.0); Mean Corpuscular Hemoglobin 27.6 pg (27.0-33.0); Mean Corpuscular Volume 82.2 fL (80.0-98.0); Mean Platelet Volume 10.3 fL (9.4-12.4); Platelet Count 303 X10*3/uL (160-400); Red Blood Count 5.39 X10*6/uL (4.60-5.80); Red Cell Distribution Width 13.2 % (11.0-16.0); White Blood Count 5.9 X10*3/uL (4.8-10.8)
[2023-01-17 12:03] LABS: Alanine Aminotransferase 18 U/L (0-40); Albumin Level 4.1 g/dL (3.5-5.0); Alkaline Phosphatase 126 U/L (39-117); Aspartate Amino Transferase 21 U/L (5-37); Bilirubin Direct < 0.2 mg/dL (0.0-0.5); Bilirubin Total 0.3 mg/dL (0.0-1.0); Lipase 31 U/L (8-78)
[2023-01-17 12:17] LABS: TSH reflex Free T4 1.82 uIU/mL (0.32-4.0)
== END 2023-01-17 09:47 | disposition home or self-care (01) ==
LOC: HO.10HDL 09:46
PROVIDERS: Visit Provider Internal Medicine Gastroenterology
DX: R10.13 Epigastric pain (principal); R63.4 Abnormal weight loss
CPT/HCPCS: 36415; 80076; 83690; 84443; 85027

== ENCOUNTER 2023-02-10 08:12 | Outpatient (REF) | payer MEDICAID, SELFPAY ==
--- NOTE | ~2023-02-10 | US_ITS ---
EXAMINATION: US ABDOMEN COMPLETE CLINICAL INFORMATION: Elevated LFTs. COMPARISON: None available. TECHNIQUE: Real-time imaging of the abdominal viscera. Technically somewhat limited study secondary to bowel gas. FINDINGS: PANCREAS: Not well seen due to shadowing from overlying bowel gas. ABDOMINAL AORTA: The proximal, mid, and distal segments are normal in caliber. INFERIOR VENA CAVA: Visualized portions are normal. LIVER: Normal. The liver is normal in size. The liver contour is normal. Parenchymal echogenicity is normal. No focal hepatic lesion. There is no intrahepatic biliary duct dilatation seen. GALLBLADDER: Normal. The gallbladder is physiologically distended without evidence of stones, sludge, polyps, wall thickening or pericholecystic fluid. COMMON BILE DUCT: Normal in caliber measuring 0.4 cm in diameter. RIGHT KIDNEY: Absent. LEFT KIDNEY: Mild hydronephrosis. No renal calculi or focal parenchymal lesions. The kidney measures 14.1 cm in maximum dimension. SPLEEN: Normal. The spleen measures 12.1 cm in maximum dimension. FREE FLUID: None. US/US abdomen complete IMPRESSION: Limited examination due to shadowing from overlying bowel gas and patient body habitus. Mild left hydronephrosis of uncertain etiology. If indicated, correlation with a CT of the abdomen and pelvis could be obtained.
== END 2023-02-10 08:13 | disposition home or self-care (01) ==
LOC: HO.HMGCX 08:12
PROVIDERS: PCP Internal Medicine; Visit Provider Internal Medicine Gastroenterology
DX: R79.89 Other specified abnormal findings of blood chemistry (principal)
CPT/HCPCS: 76700

== ENCOUNTER 2023-03-04 06:28 | Day surgery (SDC) | payer MEDICAID, SELFPAY ==
--- NOTE | 2023-03-03 10:42 | P.CONAN_ITS ---
Documented by User: Fadumo Davison NP 03/03/23 10:43 HPI - Anesthesia Eval Consult details Narrative: 32yo M for Upper Endoscopy s/p colo 11/2021 with TIVA PMFSH Active Problems Active Problems: All Active Problems (Updated 11/08/22 @ 00:01 by Paolo Oro) Spondylolisthesis at L5-S1 level (Acute) Spondylosis, lumbosacral (Acute) Chronic pain syndrome (Acute) Past Medical History Medical History Absence of kidney Anxiety Bipolar 1 disorder Colon polyps Depression Plantar fasciitis Skin graft disorder Family History Family history of problems with anesthesia: No Surgical History Surgical History History of gastric bypass Status post right foot surgery History of Problems with Anesthesia: No Social History Social History Alcohol intake: never Patient Tobacco Use Status: Never used Tobacco Use of substances other than those prescribed or required for medical reasons: No Substance Use Type: Marijuana Advance Directives: No Advance Directives Information Provided: Yes Meds Allergies Allergy/AdvReac Type Severity Reaction Status Date / Time ibuprofen [From Motrin] AdvReac Unknown UNKNOWN Verified 11/07/22 07:07 Home Medications Medication Instructions Recorded Confirmed Last Taken Type acetaminophen 500 mg tablet 500 mg PO Q6H PRN Pain 08/05/20 03/04/23 Unknown History (Acetaminophen Extra Strength) clonidine HCl 0.1 mg tablet 0.1 mg PO BEDTIME 08/05/20 03/04/23 11/20/21 History 0.1mg escitalopram oxalate 20 mg tablet 20 mg PO DAILY 08/05/20 03/04/23 Unknown History (Lexapro) fluconazole 100 mg tablet 100 mg PO DAILY 08/05/20 03/04/23 Unknown History levalbuterol tartrate 45 2 inh inhalation Q6H 08/05/20 03/04/23 Unknown History mcg/actuation aerosol inhaler (Xopenex HFA) omeprazole 20 mg capsule,delayed 20 mg PO DAILY 08/05/20 03/04/23 Unknown Histo ry release topiramate 100 mg tablet (Topamax) 100 mg PO BEDTIME 08/05/20 03/04/23 Unknown History hydroxyzine pamoate 50 mg capsule 50 mg PO TID PRN anxiety 03/04/23 03/04/23 Unknown History Exam Exam Date and Time: March 03, 2023 1042 Assessment and Plan Assessment Anesthesia Assessment: Chart Reviewed Final Anesthetic Review Family History of Problems with Anesthesia: No History of Problems with Anesthesia: No Documented by User: Rosanne Damon MD 03/04/23 07:45 PMFSH Past Medical History Medical History Absence of kidney Anxiety Bipolar 1 disorder Colon polyps Depression Plantar fasciitis Skin graft disorder Surgical History Surgical History History of gastric bypass Status post right foot surgery Social History Social History Alcohol intake: never Patient Tobacco Use Status: Never used Tobacco Use of substances other than those prescribed or required for medical reasons: No Substance Use Type: Marijuana Advance Directives: No Advance Directives Information Provided: Yes Meds Allergies Allergy/AdvReac Type Severity Reaction Status Date / Time ibuprofen [From Motrin] AdvReac Unknown UNKNOWN Verified 11/07/22 07:07 Home Medications Medication Instructions Recorded Confirmed Last Taken Type acetaminophen 500 mg tablet 500 mg PO Q6H PRN Pain 08/05/20 03/04/23 Unknown History (Acetaminophen Extra Strength) clonidine HCl 0.1 mg tablet 0.1 mg PO BEDTIME 08/05/20 03/04/23 11/20/21 History 0.1mg escitalopram oxalate 20 mg tablet 20 mg PO DAILY 08/05/20 03/04/23 Unknown History (Lexapro) fluconazole 100 mg tablet 100 mg PO DAILY 08/05/20 03/04/23 Unknown History levalbuterol tartrate 45 2 inh inhalation Q6H 08/05/20 03/04/23 Unknown History mcg/actuation aerosol inhaler (Xopenex HFA) omeprazole 20 mg capsule,delayed 20 mg PO DAILY 08/05/20 03/04/23 Unknown History release topiramate 100 mg tablet (Topamax) 100 mg PO BEDTIME 08/05/20 03/04/23 Unknown History hydroxyzine pamoate 50 mg capsule 50 mg PO TID PRN anxiety 03/04/23 03/04/23 Unknown History Exam Airway Mallampati Class: II TM Dist: >3cm Neck ROM: Full Heart: rrr Lungs: cta Assessment and Plan Assessment Anesthesia Assessment: Anesthesia Plan Discussed Final Anesthetic Review NPO: Yes ASA Class: III Final Preanesthetic Review: No Changes in Pt Med Stat, Meds/Allgs Chart Reviewed, Consent Obtained/Reviewed and Anes Risks/Benef Reviewed Patient Risk: Intermediate Procedure Risk: Low Anesthetic Plan Anesthetic Plan: MAC: Disposition: Standard PACU
[2023-03-04 06:58] VITALS: BMI 47.3
[2023-03-04 07:00] VITALS: BP 136/84; PULSE 69; RESP 18; TEMP 36.1; O2SAT 97
[2023-03-04 07:20] VITALS: BP 136/84; PULSE 69; RESP 18; TEMP 36.1; O2SAT 97
[2023-03-04] MEDS: Lactated Ringers 1,000 ML 100 ML IVCONT (07:22)
--- NOTE | 2023-03-04 07:29 | P.HPSUR_ITS ---
Pre-Procedural Eval Section A Date of Service: 03/04/23 Section B Chief Complaint: Epigastric pain,Abnormal weight loss Details of Present Illness: see H&P no changes Relevant Family History (Specify if Yes): No Relevant Social History: None Present Medications: see Short Stay Collaborative assessment Medical History: No relevant PMH History of Previous Operations: No relevant previous surgery Allergies: Allergies Allergy/AdvReac Type Severity Reaction Status Date / Time ibuprofen [From Motrin] AdvReac Unknown UNKNOWN Verified 11/07/22 07:07 Review of Systems Sugical H&P ROS: Negative: Constitution, Cardiovascular, Respiratory, N eurological, Psychiatric, Hem-Onc, Allergic/Immunologic, Gastrointestinal, Genitourinary, Musculoskeletal, Integumentary, Endocrine and Eyes/Ears/Nose/Throat Exam Surgical H&P Exam: Normal: HEENT, Normal: Heart, Normal: Lungs, Normal: Extremities, Normal: Abdomen, Normal: Skin and Normal: Neurological Plan Diagnosis/Plan: Unchanged I have reviewed the history and physical and performed a pertinent physical examination on my patient. No changes have occurred unless specified. Time Spent With Patient Time: Total time managing care of this patient today ____ minutes.
--- NOTE | 2023-03-04 07:56 | PM.OP ---
Brief Operative Note Date of Service: 03/04/23 Pre-op diagnosis: epigastric pain wt loss Post-op diagnosis: same Procedure: EGD Surgeon: Cristi Crawford Anesthesia: MAC Was an Feeder Associate used for this Procedure?: No Estimated blood loss (mL): 5 Pathology: other Condition: stable Disposition: PACU
[2023-03-04 08:00] VITALS: BP 113/67; PULSE 77; RESP 16; TEMP 36.2; O2SAT 100
--- NOTE | 2023-03-04 08:27 | OP_ITS ---
DATE OF SERVICE: 03/04/2023 SURGEON: Cristi Crawford MD INDICATIONS: Epigastric pain and weight loss. PREOPERATIVE DIAGNOSIS: POSTOPERATIVE DIAGNOSIS: PROCEDURE PERFORMED: Upper endoscopy with biopsy. ESTIMATED BLOOD LOSS: COMPLICATIONS: ANESTHESIA: Monitored anesthesia care. ASSISTANTS: SPECIMENS: DESCRIPTION OF PROCEDURE: A history and physical was performed. The risks and benefits of the procedure were explained to the patient. Informed consent was obtained. The patient was placed in the left lateral decubitus position. The Olympus video gastroscope was introduced into the esophagus, stomach, and small bowel. Examination was performed. The scope was removed. He tolerated the procedure well and was returned to the recovery in stable condition. FINDINGS: Esophagus. The esophagus was normal. Biopsies were obtained from the EG junction. Stomach. The stomach showed surgical changes from the patient's previous gastric bypass. There was a small gastric pouch with a small bowel anastomosis consistent with a gastrojejunostomy. The anastomosis appeared widely patent. Biopsies were obtained from the gastric pouch and from the small bowel. The small bowel was explored for approximately 30 cm and appeared normal. IMPRESSION: Epigastric pain. RECOMMENDATION: Follow up the biopsy results. MD MURTAZA Flores/DEE DEEL / [id number]
[2023-03-04 08:30] VITALS: BP 124/76; PULSE 64; RESP 16; TEMP 36.3; O2SAT 97
== END 2023-03-04 08:46 | disposition home or self-care (01) ==
PROVIDERS: PCP Internal Medicine; Visit Provider Internal Medicine Gastroenterology
PROC: 0DJ08ZZ Inspection of Upper Intestinal Tract, Via Natural or Artificial Opening Endoscopic (ICD-10-PCS; CPT 43235; principal; 2023-03-04 07:30)
DX: K52.89 Other specified noninfective gastroenteritis and colitis (principal); R63.4 Abnormal weight loss; Z68.37 Body mass index [BMI] 37.0-37.9, adult; K29.50 Unspecified chronic gastritis without bleeding; Z98.84 Bariatric surgery status; Q60.0 Renal agenesis, unilateral; I10 Essential (primary) hypertension; J45.909 Unspecified asthma, uncomplicated; F41.8 Other specified anxiety disorders; F43.10 Post-traumatic stress disorder, unspecified; F14.11 Cocaine abuse, in remission; Z79.899 Other long term (current) drug therapy
CPT/HCPCS: 43239; 88305; 88342; J2250

== ENCOUNTER 2023-10-04 09:15 | Outpatient (REF) | payer BC, SELFPAY ==
[2023-10-04 09:40] LABS: MANUAL DIFF FLAG NO
[2023-10-04 09:45] LABS: Basophils Percent Auto 0.5 % (0-2); Eosinophils Absolute Auto 0.2 X10*3/uL (0.0-0.4); Eosinophils Percent Auto 3.8 % (0-4); Hematocrit 45.2 % (42.0-52.0); Hemoglobin 15.1 g/dl (14.0-18.0); Imm Gran Abs Auto 0.01 X10*3/uL (0.00-0.03); Imm Gran Pct Auto 0.2 % (0.0-0.4); Lymphocytes Absolute Auto 1.3 X10*3/uL (1.2-4.9); Lymphocytes Percent Auto 22.2 % (20-40); Mean Corpuscular HGB Conc 33.4 g/dl (31.0-36.0); Mean Corpuscular Hemoglobin 27.5 pg (27.0-33.0); Mean Corpuscular Volume 82.3 fL (80.0-98.0); Mean Platelet Volume 9.8 fL (9.4-12.4); Monocytes Absolute Auto 0.5 X10*3/uL (0.1-1.2); Monocytes Percent Auto 9.2 % (2-11); Neutrophils Absolute Auto 3.7 x10*3/uL (2.0-8.3); Neutrophils Percent Auto 64.1 % (45-73); Platelet Count 317 X10*3/uL (160-400); Red Blood Count 5.49 X10*6/uL (4.60-5.80); Red Cell Distribution Width 12.8 % (11.0-16.0); White Blood Count 5.7 X10*3/uL (4.8-10.8)
[2023-10-04 10:41] LABS: Alanine Aminotransferase 24 U/L (0-40); Albumin Level 4.3 g/dL (3.5-5.0); Alkaline Phosphatase 144 U/L (39-117); Anion Gap 13 (12-20); Aspartate Amino Transferase 18 U/L (5-37); Bilirubin Total 0.3 mg/dL (0.0-1.0); Blood Urea Nitrogen 14 mg/dL (9-16); Calcium 9.1 mg/dL (8.4-10.2); Carbon Dioxide 20 mmol/L (22-29); Chloride 111 mmol/L (96-108); Cholesterol 208 mg/dL (<200); Estimated Glomerular Filt Rate > 60; Glucose Random 124 mg/dL (60-115); HDL Cholesterol 56 mg/dL (>40); LDL Cholesterol Calculated 109 mg/dL (<100); Potassium 3.7 mmol/L (3.3-5.1); Sodium 140 mmol/L (135-145); Total Protein 7.4 g/dL (6.5-8.0); Triglycerides 219 mg/dL (<150)
[2023-10-04 10:50] LABS: Thyroid Stimulating Hormone 1.22 uIU/mL (0.32-4.0)
[2023-10-04 11:05] LABS: Folate 11.6 ng/mL (> or = 4.0); Vitamin B12 685 pg/mL (200-900)
== END 2023-10-04 09:16 | disposition home or self-care (01) ==
LOC: HO.LAB 09:15
PROVIDERS: PCP Internal Medicine; Visit Provider Internal Medicine
DX: R53.83 Other fatigue (principal); G47.33 Obstructive sleep apnea (adult) (pediatric); Z98.84 Bariatric surgery status; Z90.5 Acquired absence of kidney
CPT/HCPCS: 36415; 80053; 80061; 82607; 82746; 84443; 85025

== ENCOUNTER 2023-10-06 11:42 | Outpatient (REF) | payer BC, SELFPAY ==
--- NOTE | ~2023-10-06 | XR_ITS ---
EXAMINATION: XR CHEST 2 VIEWS CLINICAL INFORMATION: Cough. COMPARISON: Prior chest radiographs, most recently 12/26/2021. TECHNIQUE: Frontal and lateral views of the chest were obtained. FINDINGS: The heart, great vessels, pulmonary vasculature and mediastinum are normal. The lungs show no focal infiltrate, effusion or pneumothorax. There is no acute osseous abnormality. XR/XR chest 2V IMPRESSION: No active cardiopulmonary disease.
== END 2023-10-06 11:43 | disposition home or self-care (01) ==
LOC: HO.XRAY 11:42
PROVIDERS: PCP Internal Medicine; Visit Provider Internal Medicine
DX: R05.9 Cough, unspecified (principal); R50.9 Fever, unspecified
CPT/HCPCS: 71046

== ENCOUNTER 2023-12-03 15:57 | Observation (INO) | payer BC, SELFPAY ==
--- NOTE | ~2023-12-03 | CT_ITS ---
EXAMINATION: CT HEAD WITHOUT CONTRAST CT ANGIOGRAM HEAD CT ANGIOGRAM NECK CLINICAL INFORMATION: Reason for Exam resolved blurry vision, aphasia, and confusion COMPARISON: Blurry vision, aphasia, confusion TECHNIQUE: Initial noncontrast testing coordinator imaging of the head and neck was performed. Noncontrast head CT was also performed. Test bolus sequences followed by intravenous administration 70 mL of Omnipaque 350. Helical imaging was performed in the axial plane from the aortic arch to the skull vertex. Delayed postcontrast imaging of the head was also performed. The data was processed at the lead neurodiagnostic technologist's workstation for generation of MIP sequences. Angled MIPs and volume rendered reformatted images were also generated at an offline 3D workstation. Stenoses are assessed in accordance with Scott et al. Quantification of Carotid Stenosis on CT Angiography. AJR 2006. 27(1):13-19. This CT examination was performed using dose optimization techniques as appropriate, variously including the following: *Automated exposure control *Adjustment of mA and/or kV according to patient size (this includes techniques or standardized protocols for targeted exams where dose is matched to indication/reason for exam; i.e. extremities or head) *Use of iterative reconstruction technique DLP: 2567.23 mGy-cm mGy-cm FINDINGS: CT HEAD: There is no evidence of acute intracranial hemorrhage. No mass-effect or ventricular shift is noted. No acute, territorial loss of almanzar-white differentiation. The ventricles and sulci are appropriate in size and configuration for the patient's stated age. No abnormal intracranial enhancement. No depressed calvarial fracture. The mastoid air cells and the visualized paranasal sinuses are well-aerated. CTA HEAD: Anterior circulation: Right internal carotid artery: No hemodynamically significant stenosis. Right middle cerebral artery: No hemodynamically significant stenosis. Right anterior cerebral artery: No hemodynamically significant stenosis. Left internal carotid artery: No hemodynamically significant stenosis. Patent posterior communicating artery. Left middle cerebral artery: No hemodynamically significant stenosis. Left anterior cerebral artery: No hemodynamically significant stenosis. Posterior circulation: Right vertebral artery: No hemodynamically significant stenosis. Left vertebral artery: No hemodynamically significant stenosis. Basilar artery: No hemodynamically significant stenosis. Right posterior cerebral artery: No hemodynamically significant stenosis. Left posterior cerebral artery: No hemodynamically significant stenosis. No high flow vascular malformation or significant aneurysmal dilatation is visualized. The major dural venous sinuses are grossly within normal limits given arterial technique. CTA NECK: Aortic arch: Common origin of the left common carotid artery and right brachiocephalic trunk. Right common carotid artery: No hemodynamically significant stenosis. Right proximal internal carotid artery: No hemodynamically significant stenosis. Right mid/distal internal carotid artery: No hemodynamically significant stenosis. Left common carotid artery: No hemodynamically significant stenosis. Left proximal internal carotid artery: No hemodynamically significant stenosis. Left mid/distal internal carotid artery: No hemodynamically significant stenosis. Right vertebral artery: The origin and portions of the V1 segment are obscured by motion and photon starvation. The remaining cervical course is without flow-limiting stenosis. Left vertebral artery: The origin and portions of the V1 segment are obscured by photon starvation and adjacent dense venous contrast. The remaining cervical course is without flow-limiting stenosis. CT NECK: No soft tissue abnormality in the neck. The visualized lung apices and upper mediastinum are within normal limits. CT/CT angio head neck IMPRESSION: CT HEAD: No acute intracranial hemorrhage or territorial loss of almanzar-white differentiation. CTA NECK: The vertebral artery origins and V1 segments are obscured secondary to technical limitations. The remaining cervical course of the carotid and vertebral arteries is without flow-limiting stenosis. CTA HEAD: No proximal vessel occlusion or high-grade stenosis.
[2023-12-03 16:26] VITALS: BP 177/103; PULSE 62; RESP 18; TEMP 36.8; O2SAT 100; BMI 43.6
--- NOTE | 2023-12-03 16:41 | ECG_ITS ---
Test Reason : STROKE ALERT Blood Pressure : / mmHG Vent. Rate : 070 BPM Atrial Rate : 070 BPM P-R Int : 160 ms QRS Dur : 088 ms QT Int : 376 ms P-R-T Axes : 032 -08 023 degrees QTc Int : 406 ms Normal sinus rhythm Minimal voltage criteria for LVH, may be normal variant ( R in aVL ) Borderline ECG When compared with ECG of 26-DEC-2021 21:51, No significant change was found Referred By: Mukund Louie Electronically Signed By:TRICIA GOFF MD
--- NOTE | 2023-12-03 16:44 | ED.NEUROSD ---
HPI - Neuro Symptoms/Deficit General Chief Complaint: Neuro Symptoms/Deficit Stated Complaint: Referred by PCP, confusion, blur vision, back pain Time Seen by Provider: 12/03/23 17:04 Source: patient and family Mode of arrival: ambulatory History of Present Illness HPI Narrative: 33-year-old male with history of anxiety who presents with onset of central blurry vision at approximately noon today while at work and states that he had concomitant slurred speech and numbness on the left side of his face. Patient also states that his tongue was heavy. Patient also reports that he has 1 kidney. Patient reports me at the time of initial evaluation that his symptoms have completely resolved. Patient has an allergy to ibuprofen and hence aspirin was not administered. Related Data Home Medications Medication Instructions Recorded Confirmed acetaminophen 500 mg tablet 500 mg PO Q6H PRN Pain 08/05/20 03/04/23 (Acetaminophen Extra Strength) clonidine HCl 0.1 mg tablet 0.1 mg PO BEDTIME 08/05/20 03/04/23 escitalopram oxalate 20 mg tablet 20 mg PO DAILY 08/05/20 03/04/23 (Lexapro) fluconazole 100 mg tablet 100 mg PO DAILY 08/05/20 03/04/23 levalbuterol tartrate 45 2 inh inhalation Q6H 08/05/20 03/04/23 mcg/actuation aerosol inhaler (Xopenex HFA) omeprazole 20 mg capsule,delayed 20 mg PO DAILY 08/05/20 03/04/23 release topiramate 100 mg tablet (Topamax) 100 mg PO BEDTIME 08/05/20 03/04/23 hydroxyzine pamoate 50 mg capsule 50 mg PO TID PRN anxiety 03/04/23 03/04/23 Previous Rx's Medication Instructions Recorded tizanidine 4 mg capsule 4 mg PO TID PRN muscle spasticity 09/12/21 30 days #90 caps diclofenac epolamine 1.3 % 1 patch topical BID #30 ea 09/27/21 transdermal 12 hour patch ketorolac 10 mg tablet 10 mg PO Q8H pain #10 tabs 11/07/22 Allergies Allergy/AdvReac Type Severity Reaction Status Date / Time ibuprofen [From Motrin] AdvReac Unknown UNKNOWN Verified 11/07/22 07:07 Review of Systems Review of Systems: Pertinent positives and negatives as stated in HPI PMFSH Past Medical History Source: nursing notes reviewed Medical History Absence of kidney Anxiety Skin graft disorder Depression Bipolar 1 disorder Plantar fasciitis Colon polyps Surgical History Status post right foot surgery History of gastric bypass Social History Social History Alcohol intake: never Patient Tobacco Use Status: Never used Tobacco Substance Use Type: Marijuana Advance Directives: No Advance Directives Information Provided: No Physical Exam Vital Signs: Vital Signs: Last Vital Signs Temp 98.2 F 12/03/23 18:43 Pulse 73 12/03/23 18:43 Resp 16 12/03/23 18:43 BP 136/87 12/03/23 18:43 Pulse Ox 99 12/03/23 18:43 O2 Del Method Room Air 12/03/23 18:43 BMI result Body Mass Index 43.6 VITAL SIGNS: Reviewed. GENERAL: Well developed, well nourished, in no acute distress. HEAD: Normocephalic/atraumatic EYES: PERRLA, EOMI EARS: Ext canals without abnormality NOSE: Nares patent bilateral OROPHARYNX: no oral lesions noted, posterior pharynx clear NECK: Supple, no adenopathy LUNGS: Normal breath sounds. No adventitious sounds or accessory muscle use. SpO2<100> CARDIOVASCULAR: Regular rate and rhythm without noted murmurs ABDOMEN: Soft, non-tender, non-distended with bowel sounds. MUSCULOSKELETAL: No tenderness, deformities, or effusions noted on gross inspection. EXTREMITIES: No cyanosis, clubbing or edema. SKIN: Inspection of the skin reveals no rashes NEUROLOGIC: Alert and oriented x 4. Strength and sensation to light touch were grossly intact x 4, no facial asymmetry, no pronator drift, cranial nerves 2-12 are grossly intact. Bedside ocular ultrasound: Extraocular muscles appear to be intact, no evidence to suggest retinal detachment Course Course Course Narrative: RME: 33-year-old male presents to the ED for resolved left eye blurry vision, confusion, and aphasia that occurred around 12:00. Patient was informed by PCP to come to the ED for evaluation. Patient states presently only left face numbness and tingling. Negative for any obvious neuro deficits on exam. Positive for decreased left eye lower periphereal vision, possible hemianopia. patient brought to the ED immediatley. out of window for TPA Medications Administered Discontinued Medications Generic Name Dose Route Start Last Admin Trade Name David PRN Reason Stop Dose Admin Iohexol 85 ml 12/03/23 18:39 12/03/23 18:39 Iohexol 350 Mg/Ml 100 Ml Infus..Btl IV 12/03/23 18:40 85 ml ONCE ONE Administration Medical Decision Making Medical Decision Making [facility] Narrative: 33-year-old male with history and clinical presentation, DDX: Lao's palsy, retinal detachment, anxiety/panic attack, TIA. The time of my examination patient had no visual deficits other than describing some central blurry vision but does wear corrective lenses. Patient did not receive aspirin as he reports allergy to ibuprofen. I reviewed all investigations and hematologic indices are grossly within normal limits without any noted derangements. Coagulation studies are within normal limits. Chemistry indices do not demonstrate an DESIRE and there is no electrolyte or liver enzyme derangements. High sensitivity troponin is chronically stable and is consistent with patient's elevated blood pressure. CT angio of head and neck as well as CT head minus do not demonstrate any acute intracranial hemorrhage/mass effect/LVO. Patient remains asymptomatic and discussed with the patient the necessity of admission and further evaluation by imaging studies, most notably an MRI. I discussed the case with inpatient hospitalist who accepts admission. Patient has passed his swallow eval. Differential Diagnosis Differential Diagnoses: The differential diagnosis associated with the presentation includes Please see the discussion above Admission/Observation Consideration of admission/observation: Escalation of care including admission/observation considered Please see the discussion above Consult Healthcare Provider Management of the patient was discussed with: Hospitalist Please see the discussion above Lab Data [facility] Lab Attestation statement: I reviewed the patient's lab results. Please see the discussion above 12/03/23 17:07 12/03/23 17:07 Labs: Lab Results 12/03/23 12/03/23 Range/Units 16:48 17:07 WBC 9.4 (4.8-10.8) X10*3/uL RBC 5.33 (4.60-5.80) X10*6/uL Hgb 14.7 (14.0-18.0) g/dl Hct 43.5 (42.0-52.0) % MCV 81.6 (80.0-98.0) fL MCH 27.6 (27.0-33.0) pg MCHC 33.8 (31.0-36.0) g/dl RDW 12.8 (11.0-16.0) % Plt Count 297 (160-400) X10*3/uL MPV 9.5 (9.4-12.4) fL Immature Gran % (Auto) 0.3 (0.0-0.4) % Neut % (Auto) 54.5 (45-73) % Lymph % (Auto) 32.8 (20-40) % [place] % (Auto) 7.3 (2-11) % Eos % (Auto) 4.5 H (0-4) % Baso % (Auto) 0.6 (0-2) % Lymph # (Auto) 3.1 (1.2-4.9) X10*3/uL [place] # (Auto) 0.7 (0.1-1.2) X10*3/uL Eos # (Auto) 0.4 (0.0-0.4) X10*3/uL Baso # (Auto) 0.1 (0.0-0.2) X10*3/uL Abs Immat Gran (auto) 0.03 (0.00-0.03) X10*3/uL Absolute Neuts (auto) 5.1 (2.0-8.3) x10*3/uL Absolute Nucleated RBC 0.000 (0.0-0.012) X10*3/uL Nucleated RBC % (auto) 0.0 (0.0-0.2) /100WBC PT 10.9 L (11.1-13.3) SEC Whole Blood PT 13.7 H (11.1-13.5) sec INR 0.9 (0.9-1.1) Whole Blood INR 1.0 (0.9-1.1) APTT 28.4 (26.0-36.8) SEC Sodium 141 (135-145) mmol/L Potassium 3.5 (3.3-5.1) mmol/L Chloride 107 (96-108) mmol/L Carbon Dioxide 27 (22-29) mmol/L Anion Gap 11 L (12-20) BUN 15 (9-16) mg/dL Creatinine 1.00 (0.5-1.4) mg/dL Estim Creat Clear Calc 139.9 Estimated GFR > 60 POC Glucose 83 (60-115) mg/dL Random Glucose 93 (60-115) mg/dL Calcium 9.8 D (8.4-10.2) mg/dL Total Creatine Kinase 107 (38-174) U/L Troponin I High Sens 11.3 (<3.5-35.0) ng/L Independent Interpretation I performed an independent interpretation of an: EKG Interpretation: Normal sinus rhythm, HR-70, no STEMI, MA/QRS/QTC is within normal limits. Radiology Impression Discussion of test interpretation with radiology: I have reviewed the radiologist's reading. Radiologist Impression: Please see the discussion above External Record Review External record reviewed: Outpatient record, Prior outpatient labs and Prior outpatient radiology Chronic Conditions Patient?s care impacted by: Hypertension and Other Bipolar, anxiety, PTSD NIH Stroke Scale Internal: Initial- Upon Arrival Level of Consciousness: Alert Level of Consciousness Questions: Answers both questions correctly Level of Consciousness Commands: Performs both tasks correctly Best Gaze: Normal Visual: No visual loss Facial Palsy: Normal Motor Arm (Right): No drift Motor Arm (Left): No drift Motor Leg (Right): No drift Motor Leg (Left): No drift Limb Ataxia: Absent Sensory: Normal Best Language: No aphasia Dysarthia: Normal Extinction and Inattention: No abnormality Score: 0 Critical Care Time Critical Care Time Critical Care Time: Yes Total Critical Care Time: 60 Attestation: I personally attest to this time spent taking care of the patient. Discharge Plan Discharge Clinical Impression: Brain TIA, Hypertension, Anxiety Patient Disposition: Admitted As Inpatient
[2023-12-03 16:54] LABS: Prothrombin Time Whole Bld POC 13.7 sec (11.1-13.5)
[2023-12-03 16:55] LABS: Glucose, Whole Blood 83 mg/dL (60-115)
[2023-12-03 17:11] LABS: Basophils Absolute Auto 0.1 X10*3/uL (0.0-0.2); Basophils Percent Auto 0.6 % (0-2); Eosinophils Absolute Auto 0.4 X10*3/uL (0.0-0.4); Eosinophils Percent Auto 4.5 % (0-4); Hematocrit 43.5 % (42.0-52.0); Hemoglobin 14.7 g/dl (14.0-18.0); Imm Gran Abs Auto 0.03 X10*3/uL (0.00-0.03); Imm Gran Pct Auto 0.3 % (0.0-0.4); Lymphocytes Absolute Auto 3.1 X10*3/uL (1.2-4.9); Lymphocytes Percent Auto 32.8 % (20-40); MANUAL DIFF FLAG NO; Mean Corpuscular HGB Conc 33.8 g/dl (31.0-36.0); Mean Corpuscular Hemoglobin 27.6 pg (27.0-33.0); Mean Corpuscular Volume 81.6 fL (80.0-98.0); Mean Platelet Volume 9.5 fL (9.4-12.4); Monocytes Absolute Auto 0.7 X10*3/uL (0.1-1.2); Monocytes Percent Auto 7.3 % (2-11); Neutrophils Absolute Auto 5.1 x10*3/uL (2.0-8.3); Neutrophils Percent Auto 54.5 % (45-73); Platelet Count 297 X10*3/uL (160-400); Red Blood Count 5.33 X10*6/uL (4.60-5.80); Red Cell Distribution Width 12.8 % (11.0-16.0); White Blood Count 9.4 X10*3/uL (4.8-10.8)
[2023-12-03 17:21] LABS: INTERNATIONAL NORM RATIO 0.9 (0.9-1.1); Prothrombin Time 10.9 SEC (11.1-13.3)
[2023-12-03 17:24] LABS: Partial Thromboplastin Time 28.4 SEC (26.0-36.8)
[2023-12-03 17:32] LABS: Anion Gap 11 (12-20); Blood Urea Nitrogen 15 mg/dL (9-16); Calcium 9.8 mg/dL (8.4-10.2); Carbon Dioxide 27 mmol/L (22-29); Chloride 107 mmol/L (96-108); Creatinine Clr Calc Pharmacy 139.9; Estimated Glomerular Filt Rate > 60; Glucose Random 93 mg/dL (60-115); Potassium 3.5 mmol/L (3.3-5.1); Sodium 141 mmol/L (135-145)
[2023-12-03 17:39] LABS: Troponin-I High Sensitivity 11.3 ng/L (<3.5-35.0)
[2023-12-03 17:42] LABS: Stroke Lab Use COMPLETE
[2023-12-03 18:31] VITALS: BP 136/87; PULSE 68; RESP 15; TEMP 36.9; O2SAT 100
[2023-12-03] MEDS: iohexoL 350 MG/ML 100 ML INFUS..BTL 85 ML IV (18:39)
[2023-12-03 18:43] VITALS: BP 136/87; PULSE 73; RESP 16; TEMP 36.8; O2SAT 99
--- NOTE | 2023-12-03 20:32 | P.HPHOSP_ITS ---
History of Present Illness Date of Service: 12/03/23 Attending physician on admission: Sara Camara Chief Complaint: blurred vision, facial numbness 33-year-old male with history of anxiety and congenital absence of right kidney presented to the office earlier today for evaluation of blurred vision in the left eye, lightheadedness, confusion, and tingling in the left side of the head that occurred around 12:00 today lasting for about 3 minutes. There was also slurred speech noted by himself and coworker. No focal weakness, paresthesias, facial droop, dysphagia, gait/balance disturbance. He was at work doing his typical job when the symptoms came on suddenly and abruptly. He did not immediately come to the hospital instead finished his shift and then presented for evaluation. He states this did not feel like his typical anxiety and denies this having felt like a panic attack. He has never had symptoms similar to this. He does also report associated nausea but no vomiting. No fevers, chills, abdominal pain, shortness breast, palpitations, or chest pain. He denies any cigarette smoking, drug use, or alcohol use. 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 He has not diabetic and denies any history of cardiovascular disease. On arrival, patient hypertensive to 177/103 136/87 on admission without intervention. Vitals otherwise stable. Hematology studies unremarkable. Renal function and electrolyte levels normal. Total CK 107, troponin 11.3. CT of the head negative for any acute intracranial abnormality. CTA head and neck negative for any hemodynamically significant stenosis or large vessel occlusion though the vertebral artery origins and V1 segments are obscured secondary to technical limitations. ED provider did also perform ultrasound to rule out retinal detachment. He was not administered aspirin due to allergy to NSAIDs. Review of Systems 2 Review of Systems: General: No fevers, malaise, unintentional weight loss HEENT: No blurred vision, diplopia. No sore throat, nasal congestion, rhinorrhea, sinus pain, ear pain Cardiovascular: No chest pain, palpitations, or leg edema Respiratory: No shortness of breath, wheezing, cough GI: No abdominal pain, nausea, vomiting, diarrhea, constipation, melena, hematochezia : No dysuria, hematuria, increased urinary frequency, decreased urinary output MSK: No myalgia, back pain Neuro: No headaches, weakness. +L side facial numbness, +lightheadedness, +blurred vision Skin: No rashes or lesions [facility] Medical History Absence of kidney Anxiety Skin graft disorder Depression Bipolar 1 disorder Plantar fasciitis Colon polyps Surgical History Status post right foot surgery History of gastric bypass Social History Alcohol intake: never Patient Tobacco Use Status: Never used Tobacco Smoked in Last 30 Days: No Use of substances other than those prescribed or required for medical reasons: No Substance Use Type: Marijuana Advance Directives: No Advance Directives Information Provided: No Meds Allergies Allergy/AdvReac Type Severity Reaction Status Date / Time ibuprofen [From Motrin] AdvReac Unknown UNKNOWN Verified 11/07/22 07:07 Active Medications: Current Medications Acetaminophen (Acetaminophen 325 Mg Tablet) 650 mg PO Q6H PRN PRN Reason: Pain, Mild (Pain Scale 1-3) Atorvastatin Calcium (Atorvastatin Calcium 40 Mg Tablet) 40 mg PO DAILY [facility] Dextrose (Dextrose 50 % 25 Gm/50 Ml Syringe) 25 gm IVPUSH Q15M PRN; Protocol PRN Reason: per Hypoglycemia Standing Ord. Glucose (Glucose Gel 15 Gm Gel..Gram.) 15 gm PO Q15M PRN; Protocol PRN Reason: per Hypoglycemia Standing Ord. Insulin Human Lispro (Insulin Lispro 100 Unit/Ml 3 Ml Vial) 0 unit SUBCUT QIDAS [facility]; Protocol Ondansetron HCl (Ondansetron Hcl 4 Mg/2 Ml Vial) 4 mg IVPUSH Q8H PRN PRN Reason: Nausea and Vomiting Senna (Sennosides 8.6 Mg Tablet) 17.2 mg PO BEDTIME PRN PRN Reason: Constipation Sodium Chloride (0.9 % Sodium Chloride Flush 3 Ml Syringe) 3 ml IVFLUSH [facility] Home Medications Medication Instructions Recorded Confirmed Last Taken Type acetaminophen 500 mg tablet 500 mg PO Q6H PRN Pain 08/05/20 12/03/23 12/02/23 History (Acetaminophen Extra Strength) hydroxyzine pamoate 50 mg capsule 50 mg PO TID PRN anxiety 03/04/23 12/03/23 12/02/23 History topiramate 100 mg tablet 150 mg PO BID 12/03/23 12/03/23 12/02/23 History Physical Exam 2 Vital Signs and Narrative: Vital Signs: Last Vital Signs Temp 98.2 F 12/03/23 18:43 Pulse 73 12/03/23 18:43 Resp 16 12/03/23 18:43 BP 136/87 12/03/23 18:43 Pulse Ox 99 12/03/23 18:43 O2 Del Method Room Air 12/03/23 18:43 BMI result Body Mass Index 43.6 Constitutional - Awake and Alert, No apparent distress Eyes - PERRLA, EOMI Cardiovascular - S1S2, RRR, No edema Respiratory - Normal lung expansion, Normal respiratory effort, No respiratory distress, CTA bilaterally Gastrointestinal - NT / ND; +BS; No rebound or guarding Extremities - no calf tenderness bilaterally, no swelling Skin - Warm/Dry Neurological - Alert & oriented x3, CN II-XII in tact, 5/5 strength BUE and BLE, symmetric patellar reflexes, negative pronator dift, normal finger to nose/rapid alternating movements/heel to perez testing, visual merino in tact Results Labs 12/03/23 17:07 12/03/23 17:07 Labs: Laboratory Results - last 24 hr 12/03/23 12/03/23 16:48 17:07 MCV 81.6 MCH 27.6 MCHC 33.8 RDW 12.8 Plt Count 297 MPV 9.5 Immature Gran % (Auto) 0.3 Neut % (Auto) 54.5 Lymph % (Auto) 32.8 [place] % (Auto) 7.3 Eos % (Auto) 4.5 H Baso % (Auto) 0.6 Lymph # (Auto) 3.1 [place] # (Auto) 0.7 Eos # (Auto) 0.4 Baso # (Auto) 0.1 Abs Immat Gran (auto) 0.03 Absolute Neuts (auto) 5.1 Absolute Nucleated RBC 0.000 Nucleated RBC % (auto) 0.0 PT 10.9 L Whole Blood PT 13.7 H INR 0.9 Whole Blood INR 1.0 APTT 28.4 Anion Gap 11 L Estim Creat Clear Calc 139.9 Estimated GFR > 60 POC Glucose 83 Random Glucose 93 Calcium 9.8 D Total Creatine Kinase 107 Imaging Radiologist's Impressions: Impressions Head/Neck CTA 12/03/23 18:46 IMPRESSION: CT HEAD: No acute intracranial hemorrhage or territorial loss of almanzar-white differentiation. CTA NECK: The vertebral artery origins and V1 segments are obscured secondary to technical limitations. The remaining cervical course of the carotid and vertebral arteries is without flow-limiting stenosis. CTA HEAD: No proximal vessel occlusion or high-grade stenosis. Assessment and Plan (1) Brain TIA: Status: Acute (2) Anxiety: Status: Acute Plan 33-year-old male with history of anxiety and congenital absence of right kidney to be observed for possible TIA #TIA -blurred vision L eye, L sided facial tingling, lightheadedness, slurred speech ongoing x 3minutes. Resolved on arrival/admission -Initially hypertensive to 177/103, reasonably controlled on admission w/o intervention -does not feel consistent with panic attack per patient -CTA head/neck negative for acute intracranial abnormality or hemodynamically significant stenosis/LVO -MRI brain -Allergy to aspirin/nsaids -lipid panel pending, atorvastatin 40 mg daily -passed bedside swallow evaluation, neuro checks q.4h, stroke education -monitor on telemetry -neurology consult. Echocardiogram pending neurology evaluation if indicated # anxiety -continue home medications DVT prophylaxis-early ambulation, SCPs Full code Quality Stroke Does the patient have a stroke diagnosis?: Yes Reason for No Anti-thrombotic by Day Two: Drug treatment not indicated VTE Prior VTE?: No VTE Risk Level:: Medical - moderate - high VTE Device Contraindication: N/A - Device Ordered VTE Drug Contraindication: Treatment Not Indicated
[2023-12-03 20:56] VITALS: BP 114/74; PULSE 72; RESP 12; TEMP 36.8; O2SAT 97
--- NOTE | 2023-12-03 20:58 | PHA.MEDREC ---
Pharmacy Consult ? Medication Reconciliation Pharmacy has completed the medication reconciliation. Confirmed medications with patient. States that he also takes Vitamin B with magnesium and vitamin B12. Could not confirm strengths.
[2023-12-03 21:01] LABS: Cholesterol 211 mg/dL (<200); HDL Cholesterol 64 mg/dL (>40); LDL Cholesterol Calculated 109 mg/dL (<100); Triglycerides 193 mg/dL (<150)
[2023-12-03 21:41] LABS: Glucose, Whole Blood 137 mg/dL (60-115)
--- NOTE | 2023-12-03 22:59 | PC.NURSE ---
Pt reports wanting to leave AMA due to anxiety and states will feel better at home. Magnet text sent to Dr. Camara.
--- NOTE | 2023-12-03 23:27 | P.DS_ITS ---
DS: Providers Provider Date of Service: 12/03/23 Date of admission: 12/03/23 20:23 Primary care physician: Ras Madera MD Consults: 12/03/23 20:25 Consult to Neurology Routine Consulting Provider: [facility] Reason for consultation: tia (vs panic attack) DS: Diagnosis Discharge Diagnosis (1) Left against medical advice: Status: Acute (2) Brain TIA: Status: Acute (3) Anxiety: Status: Acute DS: Summary Hospital Course Hospital Course: HPI: 33-year-old male with history of anxiety and congenital absence of right kidney presented to the office earlier today for evaluation of blurred vision in the left eye, lightheadedness, confusion, and tingling in the left side of the head that occurred around 12:00 today lasting for about 3 minutes. There was also slurred speech noted by himself and coworker. No focal weakness, paresthesias, facial droop, dysphagia, gait/balance disturbance. He was at work doing his typical job when the symptoms came on suddenly and abruptly. He did not immediately come to the hospital instead finished his shift and then presented for evaluation. He states this did not feel like his typical anxiety and denies this having felt like a panic attack. He has never had symptoms similar to this. He does also report associated nausea but no vomiting. No fe vers, chills, abdominal pain, shortness breast, palpitations, or chest pain. He denies any cigarette smoking, drug use, or alcohol use. 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 He has not diabetic and denies any history of cardiovascular disease. On arrival, patient hypertensive to 177/103 136/87 on admission without intervention. Vitals otherwise stable. Hematology studies unremarkable. Renal function and electrolyte levels normal. Total CK 107, troponin 11.3. CT of the head negative for any acute intracranial abnormality. CTA head and neck negative for any hemodynamically significant stenosis or large vessel occlusion though the vertebral artery origins and V1 segments are obscured secondary to technical limitations. ED provider did also perform ultrasound to rule out retinal detachment. He was not administered aspirin due to allergy to NSAIDs. Hospital course: Patient was admitted for possible TIA and was scheduled for MRI brain. Neurology was consulted for evaluation. Patient stated he felt well during hospital course and wanted to leave A. He is adamant and does not want to stay in the hospital. He understands the risk and consequences of his actions including but not limited to acute CVA +/- . Has capacity to make his decisions. Status at Discharge Functional status at discharge: independent ambulation Overall status at discharge: patient is not back to baseline Time Attestation Discharge coordination time: Less than 30 minutes Quality: Safe Use of Opioids Does Pt have an Active Cancer Diagnosis on the Problem List?: No Quality: Stroke Does the patient have a stroke diagnosis?: No Physical Exam Vital Signs: Vital Signs: Last Vital Signs Temp 98.3 F 12/03/23 20:56 Pulse 72 12/03/23 20:56 Resp 12 12/03/23 20:56 BP 114/74 12/03/23 20:56 Pulse Ox 97 12/03/23 20:56 O2 Del Method Room Air 12/03/23 20:56 BMI result Body Mass Index 43.6 Middle-aged male lying in bed in no distress Neck supple, no JVD Regular rate and rhythm, S1-S2 heard Regular breath sounds bilaterally, no wheezing or crackles appreciated Abdomen soft nontender, no guarding, no rigidity Patient is awake, alert and oriented to self, place, time and person ; no focal motor deficit Psych: Anxious No pedal edema DS: Data Data Completed and Pending Labs on day of discharge: Laboratory Results - last 24 hr 12/03/23 12/03/23 12/03/23 16:48 17:07 21:37 WBC 9.4 RBC 5.33 Hgb 14.7 Hct 43.5 MCV 81.6 MCH 27.6 MCHC 33.8 RDW 12.8 Plt Count 297 MPV 9.5 Immature Gran % (Auto) 0.3 Neut % (Auto) 54.5 Lymph % (Auto) 32.8 [place] % (Auto) 7.3 Eos % (Auto) 4.5 H Baso % (Auto) 0.6 Lymph # (Auto) 3.1 [place] # (Auto) 0.7 Eos # (Auto) 0.4 Baso # (Auto) 0.1 Abs Immat Gran (auto) 0.03 Absolute Neuts (auto) 5.1 Absolute Nucleated RBC 0.000 Nucleated RBC % (auto) 0.0 PT 10.9 L Whole Blood PT 13.7 H INR 0.9 Whole Blood INR 1.0 APTT 28.4 Sodium 141 Potassium 3.5 Chloride 107 Carbon Dioxide 27 Anion Gap 11 L BUN 15 Creatinine 1.00 Estim Creat Clear Calc 139.9 Estimated GFR > 60 POC Glucose 83 137 H Random Glucose 93 Calcium 9.8 D Total Creatine Kinase 107 Troponin I High Sens 11.3 Triglycerides 193 H Cholesterol 211 H LDL Cholesterol, Calc 109 H HDL Cholesterol 64 Imaging Chest x-ray: Radiologist's impression: ITS Impressions Head/Neck CTA 12/03/23 18:46 IMPRESSION: CT HEAD: No acute intracranial hemorrhage or territorial loss of almanzar-white differentiation. CTA NECK: The vertebral artery origins and V1 segments are obscured secondary to technical limitations. The remaining cervical course of the carotid and vertebral arteries is without flow-limiting stenosis. CTA HEAD: No proximal vessel occlusion or high-grade stenosis. Discharge Plan Discharge Patient Disposition: Left Against Medical Advice Referrals: Ras Madera MD [Primary Care Provider] - 1 Week Discharge Medications: No Action hydroxyzine pamoate 50 mg capsule 50 mg PO TID PRN (Reason: anxiety) topiramate 100 mg tablet 150 mg PO BID acetaminophen [Acetaminophen Extra Strength] 500 mg tablet 500 mg PO Q6H PRN (Reason: Pain) Discharge Orders: Discharge Order (Routine); Ordered 12/03/23 Ordered By: Sara Camara Diet: Low salt diet Activity on Discharge: As tolerated Care Plan Goals: Follow-up with PCP within 1 week Health Concerns: Anxiety TIA Plan of Treatment: Left against medical advice Assessment: As above
--- NOTE | 2023-12-03 23:32 | PM.DS ---
DS: Providers Provider Date of Service: 12/03/23 Date of admission: 12/03/23 20:23 Primary care physician: Ras Madera MD Consults: 12/03/23 20:25 Consult to Neurology Routine Consulting Provider: [facility] Reason for consultation: tia (vs panic attack) DS: Diagnosis Discharge Diagnosis (1) Left against medical advice: Status: Acute (2) Brain TIA: Status: Acute (3) Anxiety: Status: Acute DS: Summary Hospital Course Hospital Course: HPI: 33-year-old male with history of anxiety and congenital absence of right kidney presented to the office earlier today for evaluation of blurred vision in the left eye, lightheadedness, confusion, and tingling in the left side of the head that occurred around 12:00 today lasting for about 3 minutes. There was also slurred speech noted by himself and coworker. No focal weakness, paresthesias, facial droop, dysphagia, gait/balance disturbance. He was at work doing his typical job when the symptoms came on suddenly and abruptly. He did not immediately come to the hospital instead finished his shift and then presented for evaluation. He states this did not feel like his typical anxiety and denies this having felt like a panic attack. He has never had symptoms similar to this. He does also report associated nausea but no vomiting. No fevers, chills, abdominal pain, shortness breast, palpitations, or chest pain. He denies any cigarette smoking, drug use, or alcohol use. 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 He has not diabetic and denies any history of cardiovascular disease. On arrival, patient hypertensive to 177/103 136/87 on admission without intervention. Vitals otherwise stable. Hematology studies unremarkable. Renal function and electrolyte levels normal. Total CK 107, troponin 11.3. CT of the head negative for any acute intracranial abnormality. CTA head and neck negative for any hemodynamically significant stenosis or large vessel occlusion though the vertebral artery origins and V1 segments are obscured secondary to technical limitations. ED provider did also perform ultrasound to rule out retinal detachment. He was not administered aspirin due to allergy to NSAIDs. Hospital course: Patient was admitted for possible TIA and was scheduled for MRI brain. Neurology was consulted for evaluation. Patient stated he felt well during hospital course and wanted to leave A. He is adamant and does not want to stay in the hospital. He understands the risk and consequences of his actions including but not limited to acute CVA +/- . Has capacity to make his decisions. Time Attestation Discharge coordination time: Less than 30 minutes Quality: Safe Use of Opioids Does Pt have an Active Cancer Diagnosis on the Problem List?: No Quality: Stroke Does the patient have a stroke diagnosis?: No Physical Exam Vital Signs: Vital Signs: Last Vital Signs Temp 98.3 F 12/03/23 20:56 Pulse 72 12/03/23 20:56 Resp 12 12/03/23 20:56 BP 114/74 12/03/23 20:56 Pulse Ox 97 12/03/23 20:56 O2 Del Method Room Air 12/03/23 20:56 BMI result Body Mass Index 43.6 DS: Data Data Completed and Pending Labs on day of discharge: Laboratory Results - last 24 hr 12/03/23 12/03/23 12/03/23 16:48 17:07 21:37 WBC 9.4 RBC 5.33 Hgb 14.7 Hct 43.5 MCV 81.6 MCH 27.6 MCHC 33.8 RDW 12.8 Plt Count 297 MPV 9.5 Immature Gran % (Auto) 0.3 Neut % (Auto) 54.5 Lymph % (Auto) 32.8 [place] % (Auto) 7.3 Eos % (Auto) 4.5 H Baso % (Auto) 0.6 Lymph # (Auto) 3.1 [place] # (Auto) 0.7 Eos # (Auto) 0.4 Baso # (Auto) 0.1 Abs Immat Gran (auto) 0.03 Absolute Neuts (auto) 5.1 Absolute Nucleated RBC 0.000 Nucleated RBC % (auto) 0.0 PT 10.9 L Whole Blood PT 13.7 H INR 0.9 Whole Blood INR 1.0 APTT 28.4 Sodium 141 Potassium 3.5 Chloride 107 Carbon Dioxide 27 Anion Gap 11 L BUN 15 Creatinine 1.00 Estim Creat Clear Calc 139.9 Estimated GFR > 60 POC Glucose 83 137 H Random Glucose 93 Calcium 9.8 D Total Creatine Kinase 107 Troponin I High Sens 11.3 Triglycerides 193 H Cholesterol 211 H LDL Cholesterol, Calc 109 H HDL Cholesterol 64 Discharge Plan Discharge Patient Disposition: Left Against Medical Advice Referrals: Ras Madera MD [Primary Care Provider] - 1 Week Discharge Medications: No Action hydroxyzine pamoate 50 mg capsule 50 mg PO TID PRN (Reason: anxiety) topiramate 100 mg tablet 150 mg PO BID acetaminophen [Acetaminophen Extra Strength] 500 mg tablet 500 mg PO Q6H PRN (Reason: Pain) Discharge Orders: Discharge Order (Routine); Ordered 12/03/23 Ordered By: Sara Camara Diet: Low salt diet Activity on Discharge: As tolerated Care Plan Goals: Follow-up with PCP within 1 week Health Concerns: Anxiety TIA Plan of Treatment: Left against medical advice Assessment: As above
[2023-12-03] MEDS: Acetaminophen 325 MG TABLET 650 MG PO (23:45)
[2023-12-03] MEDS: diphenhydrAMINE HCL 50 MG/ML VIAL IVPUSH (23:46)
--- NOTE | 2023-12-03 23:52 | PC.NURSE ---
MD at bedside. Prescribed anti anxiety medication. Pt adamant wanting to leave AMA. Risk of leaving AMA discussed with pt. Pt verbalizes understanding and decided to leave. Family at bedside to take pt home.
[2023-12-04 05:12] LABS: Estimated Average Glucose 117 mg/dL; Hemoglobin A1c % 5.7 % (<6.0)
== END 2023-12-03 23:55 | disposition left against medical advice (07) ==
LOC: HO.ED 19:48 → HO.EDOVER 20:44 → HO.IMC 21:57 → HO.EDOVER 12-04 15:17
PROVIDERS: Physician Assistant; Admitting Provider Physician Assistant; Emergency Provider Student in an Organized Health Care Education/Training Program; PCP Internal Medicine; Visit Provider Student in an Organized Health Care Education/Training Program
DX: R41.0 Disorientation, unspecified (principal); R47.81 Slurred speech; R47.01 Aphasia; F41.9 Anxiety disorder, unspecified; H53.8 Other visual disturbances; R42 Dizziness and giddiness; R11.0 Nausea; I10 Essential (primary) hypertension; Z79.899 Other long term (current) drug therapy; Q60.0 Renal agenesis, unilateral; Z53.29 Procedure and treatment not carried out because of patient's decision for other reasons
CPT/HCPCS: 36415; 70496; 70498; 80048; 80061; 82550; 82947; 83036; 84484; 85025; 85610; 85730; 93005; 96374; 99222; 99285; J1200; Q9967

== ENCOUNTER → 2023-12-03 16:41 | Outpatient (BNV) | payer BC, SELFPAY | PROVIDERS: Admitting Provider Physician Assistant; Emergency Provider Student in an Organized Health Care Education/Training Program; PCP Internal Medicine; Visit Provider Internal Medicine Cardiovascular Disease | DX: G45.9 Transient cerebral ischemic attack, unspecified (principal) | CPT/HCPCS: 93010 ==

== ENCOUNTER → 2023-12-03 20:23 | Outpatient (BNV) | payer BC, SELFPAY | PROVIDERS: Admitting Provider Physician Assistant; Emergency Provider Student in an Organized Health Care Education/Training Program; PCP Internal Medicine; Visit Provider Physician Assistant | DX: G45.9 Transient cerebral ischemic attack, unspecified (principal); F41.9 Anxiety disorder, unspecified; Q60.0 Renal agenesis, unilateral; Z53.29 Procedure and treatment not carried out because of patient's decision for other reasons | CPT/HCPCS: 99222; 99234; 99499 ==

== ENCOUNTER 2024-01-07 10:11 | Outpatient (REF) | payer BC, SELFPAY ==
[2024-01-07 11:02] LABS: Estimated Average Glucose 114 mg/dL; Hemoglobin A1c % 5.6 % (<6.0)
[2024-01-07 11:20] LABS: Anion Gap 9 (12-20); Blood Urea Nitrogen 13 mg/dL (9-16); C Reactive Protein 0.27 mg/dL (< or = 0.50); Carbon Dioxide 21 mmol/L (22-29); Chloride 112 mmol/L (96-108); Estimated Glomerular Filt Rate > 60; Glucose Random 127 mg/dL (60-115); Potassium 3.4 mmol/L (3.3-5.1); Sodium 139 mmol/L (135-145)
== END 2024-01-07 10:12 | disposition home or self-care (01) ==
LOC: HO.LAB 10:11
PROVIDERS: PCP Internal Medicine; Visit Provider Internal Medicine
DX: R51.9 Headache, unspecified (principal); R73.01 Impaired fasting glucose
CPT/HCPCS: 36415; 80048; 82550; 83036; 86140

== ENCOUNTER 2024-10-04 16:48 | Emergency (ER) | payer BC, SELFPAY ==
--- NOTE | ~2024-10-04 | CT_ITS ---
EXAMINATION: CT scan of the right ankle without contrast CLINICAL INFORMATION: Severe medial midfoot pain and swelling COMPARISON: X-rays of the right ankle foot and tibia fibula TECHNIQUE: CT scan right ankle is performed with reconstruction imaging performed at the acquisition workstation. FINDINGS: There is a nondisplaced subtle slightly irregular coronal oriented fracture involving the posterior medial aspect of the talus. The fracture extends from the sagittal image 122 series 505 the posterior talar dome articular surface to the articular surface of the posterior facet of the talus There is a mild effusion of the talocrural joint and subtalar joint. No additional fractures. Surrounding muscles and tendons unremarkable. Small plantar calcaneal spur. CT/CT ankle RT wo IV con IMPRESSION: Nondisplaced intra-articular fracture of the posterior medial aspect of the talus Electronically signed by: Naeem Plunkett MD 10/05/2024 12:04 AM [place]
--- NOTE | ~2024-10-04 | XR_ITS ---
EXAMINATION: Right foot series. Right ankle series. Right tibia-fibula series. CLINICAL INFORMATION: Fall fracture COMPARISON: Right ankle series January 2021 TECHNIQUE: 2 views of the right tibia fibula. 2 views of the right ankle. 3 views of the right foot FINDINGS: Right tibia-fibula, right ankle, right foot,: The bones joints and soft tissues are normal throughout. No fracture. No arthrosis XR/XR tibia fibula RT 2V IMPRESSION: Normal x-ray series of the right tibia fibula, right ankle, and right foot No fracture Electronically signed by: Naeem Plunkett MD 10/04/2024 08:36 PM EST
--- NOTE | ~2024-10-04 | XR_ITS ---
EXAMINATION: Right foot series. Right ankle series. Right tibia-fibula series. CLINICAL INFORMATION: Fall fracture COMPARISON: Right ankle series January 2021 TECHNIQUE: 2 views of the right tibia fibula. 2 views of the right ankle. 3 views of the right foot FINDINGS: Right tibia-fibula, right ankle, right foot,: The bones joints and soft tissues are normal throughout. No fracture. No arthrosis XR/XR foot RT 2V IMPRESSION: Normal x-ray series of the right tibia fibula, right ankle, and right foot No fracture Electronically signed by: Naeem Plunkett MD 10/04/2024 08:36 PM EST
--- NOTE | ~2024-10-04 | XR_ITS ---
EXAMINATION: Right foot series. Right ankle series. Right tibia-fibula series. CLINICAL INFORMATION: Fall fracture COMPARISON: Right ankle series January 2021 TECHNIQUE: 2 views of the right tibia fibula. 2 views of the right ankle. 3 views of the right foot FINDINGS: Right tibia-fibula, right ankle, right foot,: The bones joints and soft tissues are normal throughout. No fracture. No arthrosis XR/XR ankle RT min 3V IMPRESSION: Normal x-ray series of the right tibia fibula, right ankle, and right foot No fracture Electronically signed by: Naeem Plunkett MD 10/04/2024 08:36 PM EST
[2024-10-04 17:00] VITALS: BP 165/139; PULSE 98; RESP 18; TEMP 37.1; O2SAT 97; BMI 42.6
--- NOTE | 2024-10-04 17:03 | ED.GENADULT ---
HPI - General Adult General Chief complaint: Extremity Injury, Lower Stated complaint: fell 8 ft. right ankle pain Time Seen by Provider: 10/04/24 20:54 Source: patient Mode of arrival: wheelchair Limitations: no limitations History of Present Illness ED Provider: Hilary Cole NP HPI narrative: Patient is a 34-year-old male who presents emergency department for evaluation. He reports that he was on an approximate 6-8 foot extendable/retractable ladder when the hook mechanism that keeps it extended came undone he subsequently guided down still holding onto the rungs of the ladder but made impact to the ground with his right foot. Reports that he heard a loud pop and subsequently had instant pain. Endorses pain to the medial aspect of the ankle and mid foot. Reports a prior injury at the age of 10 wear a large struck head ran over the foot. He did not subsequently fall backwards or have any impact to his head chest or abdomen. Denies any pain to the left lower extremity. Denies numbness tingling or cold sensation to the foot. Related Data Home Medications ?Medication ?Instructions ?Recorded ?Confirmed acetaminophen 500 mg tablet 500 mg PO Q6H PRN Pain 08/05/20 12/03/23 (Acetaminophen Extra Strength) hydroxyzine pamoate 50 mg capsule 50 mg PO TID PRN anxiety 03/04/23 12/03/23 topiramate 100 mg tablet 150 mg PO BID 12/03/23 12/03/23 Allergies Allergy/AdvReac Type Severity Reaction Status Date / Time ibuprofen [From Motrin] AdvReac Unknown UNKNOWN Verified 10/04/24 17:02 Review of Systems Review of Systems: Yes all other systems are reviewed and are negative PMFSH Past Medical History Attestation statement: The following information was validated with the patient. Source: old records reviewed Medical History Absence of kidney Anxiety Skin graft disorder Depression Bipolar 1 disorder Plantar fasciitis Colon polyps Surgical History Status post right foot surgery History of gastric bypass Social History Social History Alcohol intake: never Patient Tobacco Use Status: Never used Tobacco Smoked in Last 30 Days: No Use of substances other than those prescribed or required for medical reasons: No Substance Use Type: Marijuana Advance Directives: No Advance Directives Information Provided: No Physical Exam ED Vital Signs: Vital Signs - 24 hr 10/04/24 17:00 10/04/24 22:03 10/04/24 22:28 Temperature 98.7 F 98.4 F Pulse Rate 98 90 88 Respiratory Rate 18 16 Blood Pressure 165/139 H 145/66 H 148/80 H Pulse Oximetry 97 98 99 Oxygen Delivery Method Room Air Room Air Room Air 10/05/24 00:00 10/05/24 00:26 Temperature 98.2 F 98.2 F Pulse Rate 87 87 Respiratory Rate 16 16 Blood Pressure 126/74 126/74 Pulse Oximetry 97 97 Oxygen Delivery Method Room Air Room Air BMI result Body Mass Index 42.6 Appearance: Alert.?Oriented to person, place and time. No acute distress.?Normal affect. Eyes: Pupils equal, round and reactive to light.? ENT: Pharynx normal.?? Neck: Normal inspection.? Neck supple.?? CVS: Heart sounds normal. Normal heart rate and rhythm.? Pulses normal.?? Respiratory: No respiratory distress.? Lung sounds clear to auscultation bilaterally?? Abdomen: Soft and non-tender. Normoactive bowel sounds. Skin: Skin warm and dry.? Normal skin color.? Extremities: Localized swelling to the right lateral malleolus and medial malleolus and mid foot with exquisite tenderness upon light palpation, foot held in an everted position. No calf ttp? Neuro: Moves all extremities spontaneously. Sensation intact bilaterally. CN II-XII intact. No focal neuro deficits. Course Course Course Narrative: RME: 34 yold male was on 6ft to 8ft ladder and it came off the hook, so nikita held on to ladder and than landed unto his feet. this caused immediate pain to right ankle/foot. patient denies head, torso, or body hitting the ground. patient states he landed on right ankle. Xray of right lower exremity ordered. no signs head trauma on exam. Reevaluation(s) Reevaluation #1: My interpretation of CT imaging there is a fracture as the posterior process of the talus. He was placed in a posterior short-leg splint, remained neurovascularly intact distally after application, advised on with nonweightbearing status, instructed on use of crutches, outpatient follow-up with orthopedics. Discussed anticipation of immobilization for 4-6 weeks as fracture appears nondisplaced. All questions answered. Stable for discharge. Time: 21:53 Medications Administered Discontinued Medications Generic Name Dose Route Start Last Admin Trade Name David PRN Reason Stop Dose Admin Acetaminophen 975 mg 10/04/24 17:02 10/04/24 17:08 Acetaminophen 325 Mg Tablet PO 10/04/24 17:03 975 mg ONCE ONE Administration Ibuprofen 400 mg 10/04/24 23:00 10/04/24 23:03 Ibuprofen 400 Mg Tablet PO 10/04/24 23:01 400 mg ONCE ONE Administration Procedures Orthopedic Splinting/Casting Injury #1: Side: right Lower Extremity Injury Location: lower leg Lower Extremity Immobilizer: posterior splint Other Orthopedic Equipment: crutches Additional Comments: Neurovascularly intact distally after application Medical Decision Making Medical Decision Making MDM Narrative: Patient is a 34-year-old male with past medical history of anxiety, depression, bipolar disorder, plantar fasciitis,born with a single kidney presenting to emergency department for evaluation after a mechanical fall the ladder with pain to the right foot/ankle as per HPI reported no loss of consciousness. No focal neurological deficits, lower suspicion for ICH, SDH, fracture/subluxation, defer CT imaging of the hand at this time. XR imaging of the right foot ankle and tib-fib were obtained to evaluate for acute osseous abnormality, no evidence of fracture or dislocation. He has exquisite tenderness even upon light palpation or any manipulation, will obtain CT for further evaluation possible occult fracture. Extremities neurovascularly intact distally. Differential Diagnosis Differential Diagnoses: The differential diagnosis associated with the presentation includes (Fracture, dislocation, sprain) Independent Interpretation I performed an independent interpretation of an: Plain X-Ray (No fracture/ dislocation of the ankle/foot) and CT Scan (My interpretation of CT ankle reveals a fracture of the posterior process of the talus) Radiology Impression Discussion of test interpretation with radiology: I have reviewed the radiologist's reading. Radiologist Impression: FINDINGS: Right tibia-fibula, right ankle, right foot,: The bones joints and soft tissues are normal throughout. No fracture. No arthrosis XR/XR foot RT 2V IMPRESSION: Normal x-ray series of the right tibia fibula, right ankle, and right foot No fracture CT/CT ankle RT wo IV con IMPRESSION: Nondisplaced intra-articular fracture of the posterior medial aspect of the talus Independent Historian Clinical information obtained from an independent historian. History obtained from or confirmed by: Spouse External Record Review External record reviewed: Outpatient record Tests considered The following testing was considered but not selected: CT head deferred, no head strike, no LOC, no use of anticoagulants Prescription Management I considered prescription management with: Pain Medication Social Determinants Patient?s care significantly limited by Social Determinants of Health including: Alcoholism and drug addiction in family Discharge Plan Discharge Clinical Impression: Fracture of talus Qualifiers: Encounter type: initial encounter Fracture type: closed Talus location: posterior process Fracture alignment: nondisplaced Laterality: right Qualified Code(s): S92.134A - Nondisplaced fracture of posterior process of right talus, initial encounter for closed fracture Patient Disposition: Home, Self-Care Instructions: Talar Fracture in Adults (ED) Additional Instructions: You can take Tylenol 500 mg, 2 tablets (1,000mg) every 4-6 hours as needed for pain, but not to exceed 3 doses daily (3,000mg).? As you know, ibuprofen should be used sparingly given your presence of a single kidney. The splint should remain in place at all times until you are evaluated by orthopedics. You should not put weight on this foot. Use the crutches to take weight off of it at all times. The splint can not get wet otherwise it will fall apart. Apply ice to the area for 10-15 minutes 3-4 times daily. You may return to emergency department any new or worsening symptoms or concerns. Elevate your leg above the level of your chest frequently throughout the day. Contact the orthopedic office first thing tomorrow morning to arrange for a follow-up visit. [facility] call you must call them directly. Prescriptions: No Action hydroxyzine pamoate 50 mg capsule 50 mg PO TID PRN (Reason: anxiety) topiramate 100 mg tablet 150 mg PO BID acetaminophen [Acetaminophen Extra Strength] 500 mg tablet 500 mg PO Q6H PRN (Reason: Pain) Referrals: [facility] [Provider Group] (Posterior medial talus fracture) Stand Alone Forms: Work/School Release Interventions: ED Discharge Assessment Last Done: 10/05/24 00:26 Discharge Date/Time: 10/05/24 00:27 Print Language: [place]
[2024-10-04] MEDS: Acetaminophen 325 MG TABLET 975 MG PO (17:08)
--- NOTE | 2024-10-04 21:23 | PC.NURSE ---
pt had positive cms and pedal pulses to Right ankle, pt taken CT Scan at this time.
[2024-10-04 22:03] VITALS: BP 145/66; PULSE 90; O2SAT 98
[2024-10-04 22:28] VITALS: BP 148/80; PULSE 88; RESP 16; TEMP 36.9; O2SAT 99
[2024-10-04] MEDS: Ibuprofen 400 MG TABLET PO (23:03)
--- NOTE | 2024-10-04 23:05 | PC.NURSE ---
Medicated for pain managment.
[2024-10-05] VITALS: BP 126/74; PULSE 87; RESP 16; TEMP 36.8; O2SAT 97
--- NOTE | 2024-10-05 00:11 | PC.NURSE ---
provider applied splint to right foot.
--- NOTE | 2024-10-05 00:21 | PC.NURSE ---
Reviewed discharge instructions with pt, pt verbalized understanding, education on crutches and return demonstration. Education on Cast care, no sign of distress upon discharge.
[2024-10-05 00:26] VITALS: BP 126/74; PULSE 87; RESP 16; TEMP 36.8; O2SAT 97
== END 2024-10-05 00:27 | disposition home or self-care (01) ==
PROVIDERS: Emergency Provider Emergency Medicine; PCP Internal Medicine
DX: S92.134A Nondisplaced fracture of posterior process of right talus, initial encounter for closed fracture (principal); W11.XXXA Fall on and from ladder, initial encounter; Y93.89 Activity, other specified; Y92.9 Unspecified place or not applicable; Y99.9 Unspecified external cause status
CPT/HCPCS: 29515; 73590; 73610; 73620; 73700; 99284

== ENCOUNTER 2024-10-19 14:29 | Emergency (ER) | payer BC, SELFPAY ==
--- NOTE | 2024-10-19 | ECG_ITS ---
Test Reason : cp Blood Pressure : / mmHG Vent. Rate : 076 BPM Atrial Rate : 076 BPM P-R Int : 168 ms QRS Dur : 098 ms QT Int : 352 ms P-R-T Axes : 039 -09 014 degrees QTc Int : 396 ms Normal sinus rhythm Minimal voltage criteria for LVH, may be normal variant ( R in aVL ) Cannot rule out Anterior infarct , age undetermined Abnormal ECG When compared with ECG of 03-DEC-2023 17:10, No significant change was found Referred By: Generic ED Physician Electronically Signed By:BETTY PETER
--- NOTE | ~2024-10-19 | CT_ITS ---
EXAMINATION: CT ANGIOGRAM CHEST CLINICAL INFORMATION: Shortness of breath. COMPARISON: None available. TECHNIQUE: Multiple axial images were obtained through the chest after the administration of 65 mL of Omnipaque 350 intravenous contrast. Extensive vascular post-processing including two-dimensional and three-dimensional reformatted images were created and reviewed on an independent workstation. This CT examination was performed using dose optimization techniques as appropriate, variously including the following: *Automated exposure control *Adjustment of mA and/or kV according to patient size (this includes techniques or standardized protocols for targeted exams where dose is matched to indication/reason for exam; i.e. extremities or head) *Use of iterative reconstruction technique DLP: 546 mGy-cm FINDINGS: There is some limitation related to attenuation artifacts related to patient body habitus. QUALITY OF STUDY/CONTRAST BOLUS: Satisfactory PULMONARY ARTERIES: No pulmonary emboli. THORACIC AORTA: No aneurysm. LUNG: The lungs are clear. PLEURA: No pleural effusion or pneumothorax. MEDIASTINUM: Normal heart size. No pericardial effusion. No hilar or mediastinal lymphadenopathy. No evidence of septal bowing or right heart strain. CORONARY ARTERY CALCIFICATION: None visualized on this study. CHEST WALL/AXILLA: No axillary or internal mammary lymphadenopathy. OSSEOUS STRUCTURES: No acute or suspicious osseous abnormality. UPPER ABDOMEN: Unremarkable. No reflux of contrast into the hepatic veins to suggest elevated right heart pressures CT/CT angio chest PE protocol IMPRESSION: 1. No evidence of pulmonary emboli. 2. The lungs are clear. Fleischner guidelines were followed. Electronically signed by: Darrius Malave MD 10/20/2024 01:09 AM [place]
--- NOTE | ~2024-10-19 | XR_ITS ---
EXAMINATION: XR CHEST 2 VIEW CLINICAL INFORMATION: Shortness of breath COMPARISON: 10/06/2023 TECHNIQUE: PA and lateral views of the chest obtained. FINDINGS: The lungs are clear. There are no pleural effusions. The cardiomediastinal silhouette is normal. There is a prominent stable right epicardial fat pad. XR/XR chest 2V IMPRESSION: No acute cardiopulmonary disease. Electronically signed by: Carlos Lynn MD 10/19/2024 04:08 PM [facility]
[2024-10-19 14:43] VITALS: BP 138/84; PULSE 84; RESP 16; TEMP 36.9; O2SAT 98; BMI 42.6
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
[2024-10-19 16:26] LABS: MANUAL DIFF FLAG NO
[2024-10-19 16:27] LABS: Basophils Percent Auto 0.4 % (0-2); Eosinophils Absolute Auto 0.2 X10*3/uL (0.0-0.4); Eosinophils Percent Auto 3.2 % (0-4); Hematocrit 44.1 % (42.0-52.0); Hemoglobin 14.6 g/dl (14.0-18.0); Imm Gran Abs Auto 0.02 X10*3/uL (0.00-0.03); Imm Gran Pct Auto 0.3 % (0.0-0.4); Lymphocytes Absolute Auto 1.8 X10*3/uL (1.2-4.9); Lymphocytes Percent Auto 26.5 % (20-40); Mean Corpuscular HGB Conc 33.1 g/dl (31.0-36.0); Mean Corpuscular Hemoglobin 27.1 pg (27.0-33.0); Mean Corpuscular Volume 81.8 fL (80.0-98.0); Mean Platelet Volume 10.1 fL (9.4-12.4); Monocytes Absolute Auto 0.5 X10*3/uL (0.1-1.2); Monocytes Percent Auto 7.3 % (2-11); Neutrophils Absolute Auto 4.2 x10*3/uL (2.0-8.3); Neutrophils Percent Auto 62.3 % (45-73); Platelet Count 306 X10*3/uL (160-400); Red Blood Count 5.39 X10*6/uL (4.60-5.80); Red Cell Distribution Width 13.1 % (11.0-16.0); White Blood Count 6.8 X10*3/uL (4.8-10.8)
[2024-10-19 16:33] LABS: Prothrombin Time 11.9 SEC (10.9-12.4)
[2024-10-19 16:44] LABS: Anion Gap 12 (12-20); Blood Urea Nitrogen 15 mg/dL (9-16); Calcium 9.3 mg/dL (8.4-10.2); Carbon Dioxide 27 mmol/L (22-29); Chloride 105 mmol/L (96-108); Creatinine Clr Calc Pharmacy 172.2; Estimated Glomerular Filt Rate > 60; Glucose Random 102 mg/dL (60-115); Potassium 4.3 mmol/L (3.3-5.1); Sodium 140 mmol/L (135-145)
[2024-10-19 20:45] VITALS: BP 137/75; PULSE 87; RESP 13; TEMP 36.6; O2SAT 97
[2024-10-19 22:05] VITALS: BP 145/77; PULSE 84; RESP 14; TEMP 36.8; O2SAT 98
[2024-10-19] MEDS: 0.9 % Sodium Chloride 1,000 ML 999 ML IV (22:21)
[2024-10-19] MEDS: iohexoL 350 MG/ML 100 ML INFUS..BTL 65 ML IV (22:44)
[2024-10-20] VITALS: BP 134/80; PULSE 74; RESP 16; TEMP 36.5; O2SAT 98
[2024-10-20] MEDS: Apixaban 5 MG TABLET 10 MG PO (00:38)
[2024-10-20 02:15] VITALS: BP 134/80; PULSE 74; RESP 16; TEMP 36.5; O2SAT 98
== END 2024-10-20 02:15 | disposition home or self-care (01) ==
PROVIDERS: Physician Assistant; Emergency Provider Internal Medicine; PCP Internal Medicine
DX: I82.402 Acute embolism and thrombosis of unspecified deep veins of left lower extremity (principal); M79.604 Pain in right leg; R06.02 Shortness of breath; R07.89 Other chest pain; R11.0 Nausea; Z79.899 Other long term (current) drug therapy
CPT/HCPCS: 36415; 71046; 71275; 80048; 85025; 85610; 93005; 96360; 99284; Q9967

== ENCOUNTER → 2024-10-19 20:51 | Outpatient (BNV) | payer BC, SELFPAY | PROVIDERS: Emergency Provider Internal Medicine; PCP Internal Medicine; Visit Provider Internal Medicine | DX: R94.31 Abnormal electrocardiogram [ECG] [EKG] (principal) | CPT/HCPCS: 93010 ==

== ENCOUNTER 2024-11-17 08:25 | Outpatient (REF) | payer BC, SELFPAY ==
[2024-11-17 10:57] LABS: Anion Gap 14 (12-20); Blood Urea Nitrogen 10 mg/dL (9-16); Calcium 9.7 mg/dL (8.4-10.2); Carbon Dioxide 25 mmol/L (22-29); Chloride 105 mmol/L (96-108); Estimated Glomerular Filt Rate > 60; Glucose Random 97 mg/dL (60-115); Potassium 4.6 mmol/L (3.3-5.1); Sodium 139 mmol/L (135-145)
[2024-11-17 10:58] LABS: Estimated Average Glucose 114 mg/dL; Hemoglobin A1c % 5.6 % (<6.0); Total Hemoglobin (HGBA1C) 3857.0815 umol/L
== END 2024-11-17 08:26 | disposition home or self-care (01) ==
LOC: HO.10HDL 08:25
PROVIDERS: Visit Provider Internal Medicine
DX: E11.9 Type 2 diabetes mellitus without complications (principal)
CPT/HCPCS: 36415; 80048; 83036

== ENCOUNTER 2025-04-19 13:54 | Outpatient (AMB) | payer BC, SELFPAY ==
--- NOTE | 2025-04-19 14:07 | MHC.PC.OV ---
Vital Signs 04/19/25 14:11 04/19/25 14:28 Height 5 ft 8 in Weight 136.078 kg BMI 45.6 BP 148/100 H 168/110 H Respiration 16 Pulse 80 Pulse Source Pulse Oximeter Temp 98.2 F Temp Source Temporal Artery Scan Pulse Oximetry (%) 99 Oxygen Delivery Method Room Air Intake Visit Reasons: high blood pressure Police Commanding Officer Required: No Accompanied by: Self / Same As Patient Allergies ibuprofen [From Motrin] Adverse Reaction (Unknown, Verified 04/19/25 14:07) UNKNOWN Medication List - Last Reconciled 04/19/25 by NILDA Pelletier lidocaine 5% 1 patch topical DAILY losartan 50 mg PO DAILY HPI HPI Comments History of Present Illness Details 34-year-old male with history of hypertension, TIA, anxiety, morbid obesity presents to the office today for management of chronic conditions and to establish care. He reports he was previously on antihypertensive therapy but following weight loss, no longer required the medication. However, recently has gained weight and has been checking his blood pressure levels which have been elevated up to 177/110 as he presented to the ED out of concern for his symptoms including headaches, nausea, and I twitching. He had initially presented to [facility] due to upper back pain following a fall at work. X-ray of the thoracic spine at that time was negative. While in the ED, blood pressures were elevated. He was not discharged on any antihypertensive therapies but was given lidocaine patches which have been helpful. He is interested in losing weight. States his appetite has increased a lot but he knows he is also eating larger portion sizes than he should. No cigarettes, alcohol use. Only drinks 1 cup of coffee daily. ROS: General: No fevers, malaise, unintentional weight loss HEENT: No blurred vision, diplopia. No sore throat, nasal congestion, rhinorrhea, sinus pain, ear pain Cardiovascular: No chest pain, palpitations, or leg edema Respiratory: No shortness of breath, wheezing, cough GI: +nausea, no voomiting MSK: see hpi Neuro: see hpi Skin: No rashes or lesions EXAM: Constitutional - Awake and Alert, No apparent distress Eyes - PERRL Cardiovascular - S1S2, RRR, No edema Respiratory - Normal lung expansion, Normal respiratory effort, No respiratory distress, CTA bilaterally Extremities - no calf tenderness bilaterally, no swelling Skin - Warm/Dry Neurological - Alert & oriented x3 Psychological - Appropriate affect PFSH Medical History Absence of kidney Anxiety Skin graft disorder Depression Bipolar 1 disorder Plantar fasciitis Colon polyps Surgical History Status post right foot surgery History of gastric bypass Social History Alcohol intake: never Patient Tobacco Use Status: Never used Tobacco Substance Use Type: Marijuana Questionnaire PHQ-9 Over the last 2 weeks, how often have you been bothered by any of the following problems? 1. Little interest or pleasure in doing things: more than half the days 2. Feeling down, depressed, or hopeless: not at all 3. Trouble falling or staying asleep, or sleeping too much: several days 4. Feeling tired or having little energy: nearly every day 5. Poor appetite or overeating: not at all 6. Feeling bad about yourself - or that you are a failure or have let yourself or your family down: not at all 7. Trouble concentrating on things, such as reading the newspaper or watching television: more than half the days 8. Moving or speaking so slowly that other people could have noticed. Or the opposite - being so fidgety or restless that you have been moving around a lot more than usual: several days 9. Thoughts that you would be better off or of hurting yourself in some way: not at all Total score: 9 Source: Developed by Drs. Corwin Dueñas, Kristie Figueroa, Pardeep Barbosa and colleagues, with an educational umer from [employer]. Thrive Questionnaire Date Thrive assessed: 04/19/25 I am a: Patient What is your living situation today?: I have a steady place to live Within the past 12 months, did the food you bought not last and you didn't have the money to get more?: Never true Within the past 12 months, did you worry whether your food would run out before you got money to buy more?: Never true Do you have trouble paying for medicines?: No Do you have trouble getting transportation to medical appointments?: No Do you have trouble paying your heating and electricity bill?: No Do you have trouble taking care of your child, family member or friend?: No Do you have trouble with day-to-day activities such as bathing, preparing meals, shopping, managing finances, etc.?: No Are you currently unemployed and looking for a job?: No Are you interested in more education?: No Please select the resources that you would like help with: None THRIVE Score: 0 GILMAR-7 AMB Questionnaire GILMAR-7 Date GILMAR - 7 assessed: 04/19/25 Feeling nervous, anxious, or on edge: 1 = Several days Not being able to stop or control worryin = Not at all Worrying too much about different things: 0 = Not at all Trouble relaxin = Not at all Being so restless that it is hard to sit still: 0 = Not at all Becoming easily annoyed or irritable: 2 = More than half the days Feeling afraid as if something awful might happen: 1 = Several days Total GIMLAR-7 score (0-4 normal; 5-9 mild; 10-14 moderate; 15-21 severe): 4 Source: Developed by Drs. Cowrin Dueñas, Kristie Figueroa, Pardeep Barbosa and colleagues, with an educational umer from [employer]. Physical exam (Primary Care) Vital Signs: Last Vital Signs Temp 98.2 F 04/19/25 14:11 Pulse 80 04/19/25 14:11 Resp 16 04/19/25 14:11 BP 168/110 H 04/19/25 14:28 Pulse Ox 99 04/19/25 14:11 Oxygen Delivery Method Room Air 04/19/25 14:11 BMI result Body Mass Index 45.6 Tobacco/Smoking Status: Tobacco use Status Patient Tobacco Use Status Never used Tobacco 04/19/25 14:13 PHQ-9: PHQ-9 Score PHQ-9: Total score 9 04/19/25 14:34 Thrive Assessment: Date of Thrive Assessment Date Thrive assessed 04/19/25 04/19/25 14:34 Coding Level of Care Code New Pt Level 4 (73798) Complex EM visit Add On G2211 Diagnoses Hypertension I10 Morbid obesity E66.01 Thoracic back pain M54.6 Assessment & Plan Assessment & Plan (1) Hypertension: Code(s): I10 - Essential (primary) hypertension Category: Medical Plan: Uncontrolled with blood pressure 168/110 on recheck. Losartan 50 mg daily prescribed. Low-sodium diet. Recommend follow-up in the office in 2-3 weeks for blood pressure check. (2) Morbid obesity: Code(s): E66.01 - Morbid (severe) obesity due to excess calories Category: Medical Plan: Class 3 obesity with BMI 45.6. Recommend diet higher in protein, fruits, vegetables and lower in refined sugars, simple carbohydrates, and highly processed foods. Recommend increase exercise on a regular basis. Also advised to reach out to Dr. Carnes who previously performed his gastric bypass (3) Thoracic back pain: Code(s): M54.6 - Pain in thoracic spine Category: Medical Plan: [facility] of the thoracic spine which was reassuring. Continue topical analgesics, ibuprofen, Tylenol. Plan Follow up in 2-3 weeks for bp check with labs prior to visit. Orders: Orders Basic Metabolic Panel Today E66.01 - Morbid (severe) obesity due to excess calories, I10 - Essential (primary) hypertension Liver Panel Today E66.01 - Morbid (severe) obesity due to excess calories, I10 - Essential (primary) hypertension Lipid Panel Today E66.01 - Morbid (severe) obesity due to excess calories, I10 - Essential (primary) hypertension Medications: New losartan 50 mg PO DAILY 90 tabs 1RF
[2025-04-19 14:11] VITALS: BP 148/100; PULSE 80; RESP 16; TEMP 36.8; O2SAT 99; BMI 45.6
[2025-04-19 14:28] VITALS: BP 168/110
--- OUTSIDE RECORDS SUMMARY | 2025-04-19 15:56 | XMS_ITS ---
Author Organization [facility] Address [address] [place] [phone] Care Team Providers Care Device Sales Consultant Name Role Phone Abimael gaffney, Ad Primary Care Prov ider Ambrose Crawford Jr, Cristi Boggs REASON FOR VISIT Patient presents today for gastritis Encounters Encounter Location Date Provider Diagnosis [facility] [address] [place] [phone] 10/28/2024 Cristi Crawford Jr Plan Of Treatment No Information Progress Notes * MASSIEL LANDRY EDOB: (34 yo M)Acc No.[id number]:10/28/2024 Progress Notes Patient:?MASSIEL LANDRY Provider:?Cristi Crawford MD :1990???Age:34 Y???Sex:Male Silvino e:10/28/2024 Address:[address] [place] [phone] Pcp:Ad mcleod md Subjective: * Chief Complaints: * ???1. Patient presents today for gastritis. * Medical History:? Objective: * Vitals:? Assessment: Plan: * Treatment: * * The named appointment provid er may or may not be the originator of this progress note, and it is not deemed complete until electronically signed by the appointment provider. Sign off status: Pending * Provider:?Cristi Crawford MD Date:?1 12/29/2023 Generated for Mario rai/Clarissa/Dez on:?04/19/2025 03:56 PM EDT
== END 2025-04-19 14:34 | disposition home or self-care (01) ==
LOC: HO.HMCHD 13:54
PROVIDERS: PCP Internal Medicine; Visit Provider Physician Assistant
DX: I10 Essential (primary) hypertension (principal); E66.01 Morbid (severe) obesity due to excess calories; Z68.42 Body mass index [BMI] 45.0-49.9, adult; M54.6 Pain in thoracic spine

== ENCOUNTER 2025-05-30 08:13 | Outpatient (REF) | payer BC, SELFPAY ==
--- OUTSIDE RECORDS SUMMARY | 2024-10-28 10:35 | XMS_ITS ---
Author Organization [facility] Address [address] [place] [phone] Care Team Providers Care Lending Manager Name Role Phone Abimael gaffney, Ad Primary Care Prov ider Cristi Moore Jr REASON FOR VISIT Patient presents today for gastritis Encounters Encounter Location Date Provider Diagnosis [facility] [address] [place] [phone] 10/28/2024 Cristi Crawford Jr Plan Of Treatment No Information Progress Notes * MASSIEL LANDRY EDOB: (35 yo M)Acc No.[id number]:10/28/2024 Progress Notes Patient: Sherman LEWISMASSIEL BRYANT Remigio Provider: Miquel Crawford MD :1990 A ge:34 Y S ex:Male Date:10/28/2024 Address:[address] [place], [place] [id number] Pcp:Ad mcleod md Subjective: * Chief Complaints: * 1 . Patient presents today for gastritis. * Medical History: Objective: * Vitals: Assessment: Plan: * Treatment: * * The named appointment provid er may or may not be the originator of this progress note, and it is not deemed complete until electronically signed by the appointment provider. Sign off status: Pending * Provider: Miquel Crawford MD Date: 1 12/29/2023 Generated for Mario rai/Clarissa/Dez on: 0 05/30/2025 08:20 AM EDT
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
--- OUTSIDE RECORDS SUMMARY | 2025-05-30 08:21 | XMS_ITS | Encounter Summary ---
Author Organization [employer] Address [address] [place] [address] 7 [place] [address] Care Team Providers Care Inspector And Tester Name Role Phone Ad Shearer MD Primary Care Prov ider Encounter Details Date Type Department Care Team (Latest Contact Info) Description 05/30/2021 Abstract [facility] CONVERSIONS Dental, Provider, DDS Social History Tobacco Use Types Packs/Day Years Used Date Smoking Tobacco: Never Assessed Sex and Gender Information Value Date Recorded Sex Assigned at Male 09/02/2022 10:17 AM EDT Legal Sex Male 10:17 AM EDT Gender Identity Male 09/02/2022 10:17 AM EDT Sexual Orientation Straight 09/02/2022 10 :17 AM EDT documented as of this encounter Plan of Treatment Not on file documented as of this encounter Visit Diagnoses Not on filedocumented in this encounter Care Teams Inspector And Tester Relationship Specialty Start Date End Date Ad Shearer MD [address] [place] [address] PCP - General Internal Medicine 03/24/20 03/02/24 documented as of this encounter
[2025-05-30 10:43] LABS: Alanine Aminotransferase 36 U/L (0-40); Albumin Level 4.4 g/dL (3.5-5.0); Alkaline Phosphatase 125 U/L (39-117); Anion Gap 10 (12-20); Aspartate Amino Transferase 30 U/L (5-37); Blood Urea Nitrogen 12 mg/dL (9-16); Calcium 9.0 mg/dL (8.4-10.2); Carbon Dioxide 29 mmol/L (22-29); Chloride 106 mmol/L (96-108); Cholesterol 145 mg/dL (<200); Estimated Glomerular Filt Rate > 60; HDL Cholesterol 46 mg/dL (>40); Potassium 4.3 mmol/L (3.3-5.1); Sodium 141 mmol/L (135-145); Total Protein 7.2 g/dL (6.5-8.0); Triglycerides 138 mg/dL (<150)
== END 2025-05-30 08:14 | disposition home or self-care (01) ==
LOC: HO.10HDL 08:13
PROVIDERS: Visit Provider Physician Assistant
DX: I10 Essential (primary) hypertension (principal); E66.01 Morbid (severe) obesity due to excess calories
CPT/HCPCS: 36415; 80048; 80061; 80076

== ENCOUNTER 2025-07-13 15:28 | Outpatient (AMB) | payer BC, SELFPAY ==
--- OUTSIDE RECORDS SUMMARY | 2024-03-10 05:00 | XMS_ITS ---
Author Organization [facility] Address [address] [place] [id number] Care Team Providers Care Informatics Scientist Name Role Phone Abimael gaffney, Ad Primary Care Prov ider Cristi Moore Jr [phone] REASON FOR VISIT Patient presents today for abdominal pain Encounters Encounter Location Date Provider Diagnosis [facility] [address] [place] [id number] 03/10/2024 Cristi Crawford Jr Plan Of Treatment No Information Progress Notes * MASSIEL LANDRY EDOB: (35 yo M)Acc No.[id number]:03/10/2024 Progress Notes Patient: Sherman LEWISMASSIEL BRYANT Remigio Provider: Miquel Crawford MD :1990 A ge:33 Y S ex:Male Date:03/10/2024 Address:[address] [place], [place] [id number] Pcp:Ad mcleod md Subjective: * Chief Complaints: * 1 . Patient presents today for abdominal pain. * Medical History: Objective: * Vitals: Assessment: Plan: * Treatment: * * The named appointment provid er may or may not be the originator of this progress note, and it is not deemed complete until electronically signed by the appointment provider. Sign off status: Pending * Provider: Miquel Crawford MD Date: 0 03/10/2024 Generated for Mario rai/Clarissa/Amandaitting on: 0 07/13/2025 06:23 PM EDT
--- OUTSIDE RECORDS SUMMARY | 2024-10-28 10:35 | XMS_ITS ---
Author Organization [facility] Address [address] [place] [phone] Care Team Providers Care Identity Management Consultant Name Role Phone Abimael gaffney, Ad Primary Care Prov ider Cristi Moore Jr REASON FOR VISIT Patient presents today for gastritis Encounters Encounter Location Date Provider Diagnosis [facility] [address] [place] [phone] 10/28/2024 Cristi Crawford Jr Plan Of Treatment No Information Progress Notes * MASSIEL LANDRY EDOB: (35 yo M)Acc No.[id number]:10/28/2024 Progress Notes Patient: Sherman LEWISMASSIEL BRYANT Remigio Provider: Miquel Crawford MD :1990 A ge:34 Y S ex:Male Date:10/28/2024 Address:[address] [place], [place] [phone] Pcp:Ad mcleod md Subjective: * Chief Complaints: [...] 12/29/2023 Generated for Mario rai/Clarissa/Dez on: 0 07/13/2025 06:22 PM EDT
--- NOTE | 2025-07-13 15:30 | A.OFFPC_ITS ---
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 Throwing Department Required: No Accompanied by: Self / Same As Patient Allergies ibuprofen (From Motrin) Adverse Reaction (Unknown, Verified 07/13/25 15:30) UNKNOWN Medication List - Last Reconciled 07/15/25 by NILDA Pelletier losartan 50 mg PO DAILY omeprazole 20 mg PO BID Tobacco use date assessed: 07/13/25 Dental Screening Dental Screen Date: 07/13/25 Did you have a dental visit in the last 12 months?: Yes Did you have a dental problem in the last 6 months where you did not have access to dental care?: No Was dental information given to patient?: No HPI HPI Comments History of Present Illness Details 35-year-old male with history of bipolar disorder, polysubstance abuse with incarceration, hypertension, TIA, anxiety who is morbidly obese with BMI 44 presents to the office today for annual physical exam. Lives at home with and dogs. 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 No alcohol use, prior history of abuse of prescription pills, inhaled cocaine and heroin. No history of cigarette smoking. He does not formally exercise but lifts heavy boxes at work. He does try to follow a healthy diet but has difficulty affording healthier foods and reports he does not eat much. Has lost 3 kg Hypertension-losartan increased to 50 mg at last visit. Blood pressure in the office 134/78. History polysubstance abuse-s/p incarceration for abuse of prescription opiates, inhaled cocaine and inhaled heroin. Denies any history of IV drug abuse. Has been clean since 2016. Has never required methadone or Suboxone Chronic low back pain-reports he has been living with this all of his life and is unable to perform PT. No alarm symptoms GERD-ppi Anxiety-stable. No longer on medications or following with Psychiatry Morbid obesity-BMI greater than 44. History of gastric bypass. Had lost 130 lb but has now regained 70 lb. Looking for assistance with weight loss Concerns: Weight Health maintenance: Colonoscopy started age 43 Reviewed past medical, surgical, family, social history ROS: General: No fevers, malaise, unintentional weight loss HEENT: No blurred vision, diplopia. No sore throat, nasal congestion, rhinorrhea, sinus pain, ear pain. No hearing loss Neck - no adenopathy Cardiovascular: No chest pain, palpitations, or leg edema Respiratory: No shortness of breath, wheezing, cough GI: No dysphagia, odynophagia, globus sensation. No abdominal pain, nausea, vomiting, diarrhea, constipation, melena, hematochezia : No dysuria, hematuria, increased urinary frequency, decreased urinary output. No testicular swelling or pain. No penile discharge MSK: No myalgia, arthralgias. see hpi Neuro: No headaches, weakness, paresthesias Psych: no depression/anxiery. No AH/VH. No SI/HI Skin: No rashes or lesions EXAM: Constitutional - Awake and Alert, No apparent distress Eyes - PERRLA, EOMI. Anicteric Ears - external ears normal, canals clear, TMs intact and pearly almanzar with good cone of light Nose- septum midline, nares clear, no sinus tenderness Mouth/throat- mucosa moist, tongue and uvula midline, no erythema/edema or tonsillar adenopathy. Neck-trachea midline, thyroid symmetric without palpable nodules, no adenopathy Cardiovascular - S1S2, RRR, No edema Respiratory - Normal lung expansion, Normal respiratory effort, No respiratory distress, CTA bilaterally Gastrointestinal - NT / ND; +BS; No rebound or guarding - No CVA tenderness Extremities - no calf tenderness bilaterally, no swelling Musculoskeletal - Normal inspection, normal ROM Skin - Warm/Dry, no concerning lesions . Vitiligo Neurological - Alert & oriented x3, CN II-XII in tact, 5/5 strength BUE and BLE, 2+ patellar reflexes, sensation intact Psychological - Appropriate affect [facility] Medical History Absence of kidney Anxiety Skin graft disorder Depression Bipolar 1 disorder Plantar fasciitis Colon polyps Surgical History Status post right foot surgery History of gastric bypass Family History Mother Diabetes Social History Housing: House Alcohol intake: never Patient Tobacco Use Status: Never used Tobacco e-Cigarette/Vaping Use: Never Used Substance Use Type: Marijuana service: No Current occupational status: employed Cognitive needs: No Hearing needs: No Vision needs: Yes (Rx glasses) Questionnaire Thrive Questionnaire Date Thrive assessed: 04/19/25 GILMAR-7 AMB Questionnaire GILMAR-7 Date GILMAR - 7 assessed: 04/19/25 Source: Developed by Drs. Corwin Dueñas, Kristie Figueroa, Pardeep Barbosa and colleagues, with an educational umer from [employer]. Physical exam (Primary Care) Vital Signs: Last Vital Signs Temp 97.3 F 07/13/25 15:34 Pulse 73 07/13/25 15:34 Resp 16 07/13/25 15:34 BP 134/78 07/13/25 15:34 Pulse Ox 97 07/13/25 15:34 Oxygen Delivery Method Room Air 07/13/25 15:34 BMI result Body Mass Index 44.4 Tobacco/Smoking Status: Tobacco use Status Tobacco use date assessed 07/13/25 07/13/25 15:36 Patient Tobacco Use Status Never used Tobacco 07/13/25 15:31 e-Cigarette/Vaping Use Never Used 07/13/25 15:36 Thrive Assessment: Date of Thrive Assessment Date Thrive assessed 04/19/25 07/13/25 15:31 Coding Level of Care Code New Pt Level 3 (34768) Est Pt Prev Care 18-39y(69933) Diagnoses Routine medical exam Z00.00 Anxiety F41.9 Hypertension I10 Morbid obesity E66.01 Assessment & Plan Assessment & Plan (1) Routine medical exam: Code(s): Z00.00 - Encounter for general adult medical examination without abnormal findings Plan: 35-year-old male presenting for annual exam. Plan as below (2) Anxiety: Code(s): F41.9 - Anxiety disorder, unspecified Category: Medical Plan: Stable. Continue monitoring for symptoms. Continue positive coping mechanisms (3) Hypertension: Code(s): I10 - Essential (primary) hypertension Category: Medical Plan: Controlled. Continue losartan 50 mg daily (4) Morbid obesity: Code(s): E66.01 - Morbid (severe) obesity due to excess calories Category: Medical Plan: Commended on weight loss efforts. He is referred to weight management for further assistance with weight loss. Encouraged to continue with diet higher in protein, fruits, vegetables and limiting refined sugars, simple carbohydrates, highly processed foods. Recommend 150 minutes of moderate exercise weekly Plan Reviewed most recent labs from 05/27 with the patient Continue with screening colonoscopies and PSA Continue following for annual skin exams and use sun protection Annual eye exams Wear seat belt in car Recommend regular exercise and healthy diet Follow up in 6m He is given exercises he can perform at home for his chronic low back pain Orders: Referrals Medical Weight Management Referral E66.01 - Morbid (severe) obesity due to excess calories
[2025-07-13 15:34] VITALS: BP 134/78; PULSE 73; RESP 16; TEMP 36.3; O2SAT 97; BMI 44.4
--- OUTSIDE RECORDS SUMMARY | 2025-07-13 18:23 | XMS_ITS | Patient Health Record ---
Author Organization [facility] Address [address] [place] [address] Care Team Providers Care Livestock Agent Name Role Phone Abimael gaffney, Ad Primary Care Prov ider Unavailable Cristi Crawford Jr Unavailable Allergies No Known Allergies Reason For Referral No Information Medications Medication SIG (Take, Route, Fr equency, Duration) Notes Start Date End Date Status Cetirizine HCl 10 MG Oral for 30 Active Vistaril 25 MG 1 capsule as needed Orally every 8 hrs for 30 day(s) Active tylenol 1 tab Oral for 14 days Active cloNIDine HCl 0.1 MG Oral for 30 Active Meloxicam 7.5 MG Oral for 30 A ctive Topiramate 25 MG 1 tablet Orally Once a day for 30 day(s) Active Omeprazole 20 MG 1 capsule Orally Twi ce a day for 30 days 06/06/2022 Active Doxepin HCl 10 MG Oral for 30 Active Immunizations Vaccine Route Administration Date Status Comme nts Influenza Unknown 09/19/2021 Administered Influenza Unknown 07/04/2022 Administered Social History Tobacco Use: Social History Observation Description Date Details (start date - stop date) Never Smoker NA - NA Tobacco Use/Smoking Question Answer Notes Patient is a nonsmoker Alcohol Screen Question Answer Notes Did you have a drink containing alcohol in the p ast year? No Points 0 Interpretation Negative Section Notes: He does use marijuana He does use marijuana Problems Problem Type SNOMED Code ICD Code Onset Dates Problem Status W/U Status Risk Notes Problem 99129759 Rectal bleeding (K62.5) Active confirmed Problem 70488666 Epigastric pain (R10.13) Active confirmed Problem 79083657 Weight loss (R63.4) Active confirmed Problem 352311021 Elevated LFTs (R79.89) Active confirmed Problem 854750070 Abnormal findings in stool (R19.5) Active confirmed Problem 52507196 Duodenal ulcer (K26.9) Active confirmed Encounters Encounter Location Date Provider Diagnosis [facility] [address] [place] [address] 09/22/2024 Cristi Crawford Jr [facility] [address] [place] [address] 10/28/2024 Cristi Crawford Jr Plan Of Treatment Pending Test Test Name Order Date LIVER PROFILE 01/17/2023 LIVER PROFILE 02/19/2023 LIPASE 01/17/2023 GGT 02/19/2023 CBC w/o DIFF 01/17/2023 US ABD 01/29/2023 TSH REFLEX FREE T4 01/17/2023 Future Test Test Name Order Date COLONOSCOPY 11/07/2021 UPPER GI ENDOSCOPY 01/17/2023 Insurance Providers Payer Name Payer Address Payer Phone Subscriber Number Group Number Insured Name Patient Relationship to Insured Coverage Start Date Coverage End Date [employer] [address] [place] [address] [id number] MASSIEL LANDRY Self - patient is the insured Medical (General) History Medical History History ICD Code Solitary left kidney Colonoscopy 11/20/21, tubular adenomas x2 , seven-year followup Migraine headaches Asthma Hypertension Irritable bowel syndrome Anxiety/depression with PTSD History of substance abuse with cocaine, currently in remission Surgical History Surgery Date(Month/Year) skin graft 1999 Laparoscopic Kraig-en-Y gastric bypass 20 10 Hospitalization History Reason Date(Month/Year) Gastric bypass surgery 2009
--- OUTSIDE RECORDS SUMMARY | 2025-07-13 18:23 | XMS_ITS | Encounter Summary ---
Author Organization [employer] Address [address] [place] [address] [address] [place] [address] Care Team Providers Care Clay Artisan Name Role Phone Ad Shearer MD Primary [...] on filedocumented in this encounter Care Teams Clay Artisan Relationship Specialty Start Date End Date Ad Shearer MD [address] [place] [address] PCP - General Internal Medicine 03/24/20 03/02/24 documented as of this encounter
--- OUTSIDE RECORDS SUMMARY | 2025-07-13 18:23 | XMS_ITS | Clinical Summary ---
Author Organization Patient Business Ser [facility] Address [address] [place] [address] Care Team Providers Care Mill And Coal Transport Operator Name Role Phone Unavailable Primary Care Provider Unavailabl e Surgical History Surgery Date Site/Laterality Comments GASTRIC BYPASS 2009 PROCEDURE: RI GASTRIC RSTCV W/BYP W/SM INT RCNSTJ LIMIT [...] disease) Depression DX:Depression Anxiety DX:Anxiety Bipolar disorder ([facility] V2 4, [facility] V28) DX:Bipolar disorder ([facility]) Environmental allergies DX:Envir onmental allergies Family History [...] Upcoming Encounters Date Type Department Care Team ([facility] st Contact Info) Description 12/08/2025 3:00 PM EST Office Visit Bariatric Surgery - [address] [place] [phone] Tim Ventura MD [address] [place], [place] [address] [place] [id number] Health Maintenance Due Date Last Done Comments [...]
--- OUTSIDE RECORDS SUMMARY | 2025-07-13 18:23 | XMS_ITS | Clinical Summary ---
Author Organization [employer] Address [address] [place] [address] Care Team Providers Care Washer And Capper Machine Operator Name Role Phone Unavailable Primary Care Provider Unavailabl e Allergies Active Allergy Reactions Criticality Noted Date Comments Ibuprofen 03/24/2020 Medications baclofen (Lioresal) 10 MG tablet Take 1 tablet by mouth every 8 (eight) hours. 2 Active carbamide peroxide (Debrox) 6.5 % otic solution instill 5 drops by otic route 2 times every day into affected ear(s) for up to 4 days 2 Active cloNIDine (Catapres) 0.2 MG tablet Take 1 tablet by mouth every 12 (twelve) hours. 0 Active cloNIDine (Catapres) 0.3 MG tablet Take 1 tablet by mouth at bed time. 0 Active DULoxetine (Cymbalta) [address] capsule Take 1 capsule by mouth at bed time. Active levalbuterol (Xopenex HFA) 45 MCG/ACT inhaler Inhale 2 puffs every 6 (six) hours. 2 Active Loratadine (Claritin) 10 MG capsule Take 1 capsule by mouth in the morning. 2 Active Multiple Vitamin (Multi-Vitamin) tablet Take 1 tablet by mouth in the morning. 2 05/08/20 32 Active omeprazole (PriLOSEC) [address] capsule Take 1 capsule by mouth at bed time. 2 Active psyllium (Metamucil) 33 % powder Take 1heaping tablespoon 1-2 x a day 2 Active topiramate (Topamax) 100 MG tablet Take 1.5 tablets by mouth every 12 (twelve) hours. 0 Active witch derik-glycerin (Tucks) pad Apply as directed prn 0 Active fluticasone (Flonase Allergy Relief) 50 MCG/ACT nasal spray Administer 1-2 sprays into each nostril in the morning. 16 g 2 3 Active Active Problems Problem Noted Date Diagnosed Date Other hydronephrosis 02/24/2023 Assessment & Plan (02/24/2023 9:05 AM EDT): Patient with right renal agenesis, presents incidentally on ultrasound with right mild hydronephrosis, no sign of renal calculi, most likely chronic Nocturia 02/24/2023 Assessment & Plan (02/24/2023 9:07 AM EDT): Patient refer for te past months he has been straining to urinate, and waking up multiple times at night to urinate, not feeling a complete bladder emptying, will order PSA, this could explain hydronephrosis Mild intermittent asthma without complication Assessment & Plan (02/06/2023 7:31 PM EDT): Controlled, no changes will be made, uses levalbuterol once a week for shortness of breath, no recent er vist due to exacerbation, he stopped smoking 2 months ago. Assessment & Plan (12/01/2022 5:02 PM EST): Symptoms controlled, on levalbuterol for acute attacks, no changes will be made Arthritis 12/01/2022 Assessment & Plan (12/01/2022 5:03 PM EST): Will renew tylenol, to be taken Prn, apply cold pack to affected area Social History Tobacco Use Types Packs/Day Years Used Date Smoking Tobacco: Former Cigarettes Passive Smoke Exposure: Past Smokeless Tobacco: Never Tobacco Cessation:Counseling Given: Not Answered Alcohol Use Standard Drinks/Week Comments Never 0 (1 standard drink = 0.6 oz pur e alcohol) Depression Answer Date Recorded Patient Health Questionnaire-9 Score 0 02/06/2023 Housing Stability Answer Date Recorded What is your housing situation today? I have [facility] 09/08/[address] you li ve. Do you have problems with any of the following? None of the above 09/08/2023 Food Insecurity Answer Date Recorded Within the past 12 months, y ou worried that your food would run out before you got money to buy more: Never True 09/08/2023 Within the past 12 months,th e food you bought just didn't last and you didn't have enough money to get more: Never True 04/2023 Transportation Answer Date Recorded In the past 12 months, has l ack of transportation kept you from medical appts, meetings, work or from getting things needed for daily living? No 09/08/2023 Utilities Answer Date Recorded In the past 12 months, has t he electric, gas, oil or water company threatened to shut off services in your home? No 09/08/2023 Depression Answer Date Recorded Patient Health Questionnaire-2 Score 0 02/06/2023 Sex and Gender Information Value Date Recorded Sex Assigned at Male 09/02/2022 10:17 AM EDT Legal Sex Male 10:17 AM EDT Gender Identity Male 09/02/2022 10:17 AM EDT Sexual Orientation Straight 09/02/2022 10 :17 AM EDT Last Filed Vital Signs Vital Sign Reading Time Taken Comments Blood Pressure 128/68 09/16/2022 4:14 PM EST Pulse 72 09/16/2022 3:03 PM EST Temperature - - Respiratory Rate - - Oxygen Saturation - - Inhaled Oxygen Concentration - - Weight 110 kg (242 lb) 09/16/2022 3:03 PM EST Height 172.7 cm (5' 8 ) 09/16/2022 3:03 PM EST Body Mass Index 36.8 09/16/2022 3:03 PM EST Plan of Treatment Health Maintenance Due Date Last Done Comments Disability Screening 1988 Alcohol/Substance Use Screening 2000 Family Planning (PISQ) 2003 HPV Vaccines (1 - Male 3-dose series) 2003 Pneumococcal Vaccine: Pediatrics (0 to 5 Years) and At-Risk Patients (6 to 49) Years (1 of 2 - PCV) 2007 Depression Screening 02/07/2024 02/06/2023, 02/07/20 23 SDOH Screening 02/07/2024 02/06/2023 Tobacco Screening 02/25/2024 02/24/2023 COVID-19 Vaccine (3 - season) 2025 06/13/2022, 11/17/2021 Influenza Vaccine (#1) 2025 , 09/19/2021, 07/06/2021, Additional history exists Lipid Panel 08/01/2027 08/01/2022, 10/05, 05/22/2020 DTaP/Tdap/Td Vaccines (3 - Td or Tdap) 05/28/2030 05/28/2020, 02/10/2013 Zoster Vaccines (1 of 2) 2038 RSV Patients and Patients Aged 60 years or older (1 - 1-dose 75+ series) 2063 Hepatitis A Vaccines Aged Out 08/13/2016, 02/11/20 16 No longer eligible based on patient's age to complete this topic Hepatitis B Vaccines Completed 08/13/2016, 03/15/2016, 02/11/2016 HIV Screening Completed 05/22/2020 Hepatitis C Screening Completed 05/22/2020 HIB Vaccines Aged Out No longer eligi ble based on patient's age to complete this topic IPV Vaccines Aged Out No longer eligi ble based on patient's age to complete this topic Meningococcal B Vaccine Aged Out No l onger eligible based on patient's age to complete this topic Meningococcal Vaccine Aged Out No vicky tamy eligible based on patient's age to complete this topic RSV under 20 months Aged Out No longe r eligible based on patient's age to complete this topic Rotavirus Vaccines Aged Out No longer eligible based on patient's age to complete this topic Procedures Procedure Name Priority Date/Time Associated Diagnosis Comments LIPID PANEL, STANDARD Routine 08/01/2022 8:37 AM EDT ZZZ HISTORICAL HEPATITIS C AB W/REFL TO HCV RNA, QN, PCR Routine 05/22/2020 2:51 PM EDT HIV 1/2 ANTIGEN/ANTIBODY, FOURTH GENERATION W/RFL Routine 05/22/2020 2:51 PM EDT from Last 3 Months or Most Recently Relevant to Health Maintenance Results * LIPID PANEL, STANDARD (08/01/2022 8:37 AM EDT) Chol/HDLC Ratio 3.4 <5.0 (calc) [facility]GACY LAB[facility] Cholesterol, Total 166 <200 mg/dL [facility] HDL Cholesterol 49 > OR = 40 mg/dL [facility] LDL Cholesterol 93 mg/dL (calc) [facility] Comment: Reference range: <100 Desirable range <100 mg/dL for primary prevention; <70 mg/dL for patients with CHD or diabetic patients with > or = 2 CHD risk factors. LDL-C is now calculated using the Casa-Larose calculation, which is a validated novel method providing better accuracy than the Friedewald equation in the estimation of LDL-C. Casa CARRASQUILLO et al. JUNE. 2013;310(19): 1417-5003 (http://education.The 3Doodler/faq/IUW690) Non-HDL Cholesterol 117 <130 mg/dL (calc) CONVERT[facility]GAC[facility] Comment: For patients with diabetes plus 1 major ASCVD risk factor, treating to a non-HDL-C goal of <100 mg/dL (LDL-C of <70 mg/dL) is considered a therapeutic option. Triglycerides 138 <150 mg/dL CONVE RTED LEGACY LABS 08/01/2022 8:37 AM EDT Ad Oviedo MD LAB BLOOD ORDERABL ES Final Result CONVERT[facility]GACY [facility] * HEPATITIS C AB W/REFL TO HCV RNA, QN, PCR (05/22/2020 2:51 PM EDT) HEPATITIS C ANTIBODY NON-REACT THIAGO NON-REACT THIAGO [facility] INDEX 0.10 <1.00 [facility] Comment: HCV antibody was non-reactive. There is no laboratory evidence of HCV infection. In most cases, no further action is required. However, if recent HCV exposure is suspected, a test for HCV RNA (test code 10847) is suggested. For additional information please refer to http://Curiosidy.MoreMagic Solutions/faq/QLT96v1 (This link is being provided for informational/ educational purposes only.) HEPATITIS C ANTIBODY NON-REACT THIAGO NON-REACT THIAGO [facility] INDEX 0.10 <1.00 [facility] Comment: HCV antibody was non-reactive. There is no laboratory evidence of HCV infection. In most cases, no further action is required. However, if recent HCV exposure is suspected, a test for HCV RNA (test code 13123) is suggested. For additional information please refer to http://Lily BlueFlame [employer] Media/faq/QHU90x1 (This link is being provided for informational/ educational purposes only.) HEPATITIS C ANTIBODY NON-REACT THIAGO NON-REACT THIAGO [facility] INDEX 0.10 <1.00 [facility] Comment: HCV antibody was non-reactive. There is no laboratory evidence of HCV infection. In most cases, no further action is required. However, if recent HCV exposure is suspected, a test for HCV RNA (test code 70575) is suggested. For additional information please refer to http://Lily [employer] Media/faq/OIN15j3 (This link is being provided for informational/ educational purposes only.) 05/22/2020 2:51 PM EDT Ad Oviedo MD HISTORICAL/NON ORD ERABLE LABS Final Result [facility] [address] * HIV 1/2 ANTIGEN/ANTIBODY,FOURTH GENERATION W/RFL (05/22/2020 2:51 PM EDT) HIV-1/2 ANTIGEN AND ANTIBODIES, 4TH GENERATION W/ REFLEX NON-REACT THIAGO NON-REACT THIAGO [facility] Comment: HIV-1 antigen and HIV-1/HIV-2 antibodies were not detected. There is no laboratory evidence of HIV infection. PLEASE NOTE: This information has been disclosed to you from records whose confidentiality may be protected by state law. If your state requires such protection, then the state law prohibits you from making any further disclosure of the information without the specific written consent of the person to whom it pertains, or as otherwise permitted by law. A general authorization for the release of medical or other information is NOT sufficient for this purpose. For additional information please refer to http://Curiosidy.MoreMagic Solutions/faq/PTE735 (This link is being provided for informational/ educational purposes only.) The performance of this assay has not been clinically validated in patients less than 2 years old. HIV-1/2 ANTIGEN AND ANTIBODIES, 4TH GENERATION W/ REFLEX NON-REACT THIAGO NON-REACT THIAGO [facility] Comment: HIV-1 antigen and HIV-1/HIV-2 antibodies were not detected. There is no laboratory evidence of HIV infection. PLEASE NOTE: This information has been disclosed to you from records whose confidentiality may be protected by state law. If your state requires such protection, then the state law prohibits you from making any further disclosure of the information without the specific written consent of the person to whom it pertains, or as otherwise permitted by law. A general authorization for the release of medical or other information is NOT sufficient for this purpose. For additional information please refer to http://Lily [employer]Fl[employer] Media/faq/ZSU636 (This link is being provided for informational/ educational purposes only.) The performance of this assay has not been clinically validated in patients less than 2 years old. HIV-1/2 ANTIGEN AND ANTIBODIES, 4TH GENERATION W/ REFLEX NON-REACT THIAGO NON-REACT THIAGO [facility] Comment: HIV-1 antigen and HIV-1/HIV-2 antibodies were not detected. There is no laboratory evidence of HIV infection. PLEASE NOTE: This information has been disclosed to you from records whose confidentiality may be protected by state law. If your state requires such protection, then the state law prohibits you from making any further disclosure of the information without the specific written consent of the person to whom it pertains, or as otherwise permitted by law. A general authorization for the release of medical or other information is NOT sufficient for this purpose. For additional information please refer to http://Curiosidy.MoreMagic Solutions/faq/TOX535 (This link is being provided for informational/ educational purposes only.) The performance of this assay has not been clinically validated in patients less than 2 years old. 05/22/2020 2:51 PM EDT us Ad Oviedo MD LAB BLOOD ORDERABL ES Final Result [facility] [address] [place] [address], from Last 3 Months or Most Recently Relevant to Health Maintenance [facility]
--- OUTSIDE RECORDS SUMMARY | 2025-07-13 18:24 | XMS_ITS | Encounter Summary ---
Author Organization [employer] Address [address] [place] [address] 7 [place] [address] Care Team Providers Care Foundry Melt Supervisor Name Role Phone Ad Shearer MD Primary Care Prov ider Reason for Visit * Reason Onset Date Comments Triage 04/01/2023 Encounter Details Date Type Department Care Team ([facility] Contact Info) Description 04/01/2023 Telephone C [facility] [address] [place] [address] Ad Shearer MD [address] [place] [address] Triage Social History Tobacco Use Types Packs/Day Years Used Date Smoking Tobacco: Former Cigarettes Passive Smoke Exposure: Past Smokeless Tobacco: Never Alcohol Use Standard Drinks/Week Comments Never 0 (1 standard drink = 0.6 oz pur e alcohol) Depression Answer Date Recorded Patient Health Questionnaire-9 Score 0 02/06/2023 Depression Answer Date Recorded Patient Health Questionnaire-2 Score 0 02/06/2023 Sex and Gender Information Value Date Recorded Sex Assigned at Male 09/02/2022 10:17 AM EDT Legal Sex Male 10:17 AM EDT Gender Identity Male 09/02/2022 10:17 AM EDT Sexual Orientation Straight 09/02/2022 10 :17 AM EDT documented as of this encounter Miscellaneous Notes * Telephone Encounter - Sharifa Richardson RN - 04/01/2023 9:09 AM EDT Called pt. Via [employer] logistics planning engineer [phone] Jacqueline. Pt. States that he called his Coal Cager to make an appt. Donna Begum II at [facility] in [place] on [facility]. And his referral is for his Plantar Fasciitis. Pt. Needs new referral to Coal Cager for his DX. Left foot Plantar fascitis. Please update a new referral for pt. As his left foot is bothering him again. * Telephone Encounter - Sangita Trevizo - 04/01/2023 8:36 AM EDT Symptom: Foot or Ankle Pain - Not From Injury Outcome: Talk to a nurse or provider within 15 minutes Reason: Can't walk The caller accepted this outcome Please contact pt at [phone] German Speaker documented in this encounter Plan of Treatment Not on file documented as of this encounter Visit Diagnoses Not on filedocumented in this encounter Additional Health Concerns Assessment Noted Time PHQ-9 Depression Total Score: 0 02/07/20 23 2:58 PM EDT documented as of this encounter Care Teams Foundry Melt Supervisor Relationship Specialty Start Date End Date Ad Shearer MD [address] [place] [id number] PCP - General Internal Medicine 03/24/20 03/02/24 documented as of this encounter
== END 2025-07-13 16:17 | disposition home or self-care (01) ==
LOC: HO.HMCHD 15:29
PROVIDERS: PCP Physician Assistant; Visit Provider Physician Assistant
DX: Z00.00 Encounter for general adult medical examination without abnormal findings (principal); F41.9 Anxiety disorder, unspecified; E66.01 Morbid (severe) obesity due to excess calories; Z68.41 Body mass index [BMI] 40.0-44.9, adult; I10 Essential (primary) hypertension

== ENCOUNTER 2025-09-27 08:50 | Outpatient (AMB) | payer BC, SELFPAY ==
--- NOTE | 2025-09-27 08:59 | A.OFFPC_ITS ---
Vital Signs 09/27/25 09:05 09/27/25 09:37 Height 5 ft 8.62 in Weight 134.717 kg BMI 44.3 BP 144/76 H 136/78 Blood Pressure Location Lt brachial Position Sitting Respiration 18 Pulse 85 Pulse Source Pulse Oximeter Temp 97.8 F Temp Source Temporal Artery Scan Pulse Oximetry (%) 98 Oxygen Delivery Method Room Air Intake Visit Reasons: Medications Optometric Assistant Required: No Accompanied by: Self / Same As Patient Allergies ibuprofen (From Motrin) Adverse Reaction (Unknown, Verified 09/27/25 09:00) UNKNOWN Medication List - Last Reconciled 09/27/25 by NILDA Pelletier clindamycin HCl 150 mg PO TID losartan 50 mg PO DAILY omeprazole 20 mg PO BID Tobacco use date assessed: 07/13/25 Dental Screening Dental Screen Date: 07/13/25 HPI HPI Comments History of Present Illness Details 35-year-old male with history of bipolar disorder, polysubstance abuse with incarceration, hypertension, TIA, anxiety who is morbidly obese with BMI 44.3 presenting for follow-up. Hypertension-losartan increased to 50 mg at last visit. Blood pressure in the office 136/78 on recheck. History polysubstance abuse-s/p incarceration for abuse of prescription opiates, inhaled cocaine and inhaled heroin. Denies any history of IV drug abuse. Has been clean since 2016. Has never required methadone or Suboxone. In sustained remission Chronic low back pain-reports he has been living with this all of his life and is unable to perform PT. No alarm symptoms GERD-ppi Anxiety-stable. No longer on medications or following with Psychiatry or therapy. Morbid obesity-BMI greater than 44. History of gastric bypass. Had lost 130 lb but has now regained 70 lb. Looking for assistance with weight loss. Has upcom ing appointment with Dr. Ventura. Very active at work, but difficult with work hours. Has only 1 kidney. Wants phentermine or Zepbound/Wegovy. Has no contraindications.. s/p gastric bypass. Not eating much for long stretching then is very hungry. Reports eating a lot of rice in diet Concerns: Dental abscess-right upper molar. Follows with Buford caitlin. Abscess seen on x-ray at the dentist. Initially was given amoxicillin 500 mg t.i.d. x7 days without improvement. Now on clindamycin 150 mg t.i.d. x7 days. Pain has improved slightly. Still experiences pain when pushing on the right side of the face adjacent to the abscess that extends about 2 cm into the nasolabial fold. He is scheduled to have a root canal on 11/01. Weight as above Health maintenance: Colonoscopy started age 43 ROS: see hpi EXAM: Constitutional - Awake and Alert, No apparent distress Eyes - PERRL Mouth/throat- swelling at the root of right upper molar without any fluctuance. Tender to palpation Skin - Warm/Dry Neurological - Alert & oriented x3 Psychological - Appropriate affect [facility] Medical History (Updated 10/01/25 @ 21:27 by NILDA Pelletier) Prediabetes Absence of kidney Anxiety Skin graft disorder Depression Bipolar 1 disorder Plantar fasciitis Colon polyps Surgical History (Updated 09/26/25 @ 15:39 by Virginia Escobar) History of colonoscopy (~11/21/21) Status post right foot surgery History of gastric bypass Family History Mother Diabetes Social History Housing: House Alcohol intake: never Patient Tobacco Use Status: Never used Tobacco e-Cigarette/Vaping Use: Never Used Substance Use Type: Marijuana service: No Current occupational status: employed Cognitive needs: No Hearing needs: No Vision needs: Yes (Rx glasses) Questionnaire Thrive Questionnaire Date Thrive assessed: 04/19/25 GILMAR-7 AMB Questionnaire GILMAR-7 Date GILMAR - 7 assessed: 04/19/25 Source: Developed by Drs. Corwin Dueñas, Kristie Figueroa, Pardeep Barbosa and colleagues, with an educational umer from [employer]. Physical exam (Primary Care) Vital Signs: Last Vital Signs Temp 97.8 F 09/27/25 09:05 Pulse 85 09/27/25 09:05 Resp 18 09/27/25 09:05 BP 136/78 09/27/25 09:37 Pulse Ox 98 09/27/25 09:05 Oxygen Delivery Method Room Air 09/27/25 09:05 BMI result Body Mass Index 44.3 Tobacco/Smoking Status: Tobacco use Status Tobacco use date assessed 07/13/25 09/27/25 09:02 Patient Tobacco Use Status Never used Tobacco 09/27/25 09:02 e-Cigarette/Vaping Use Never Used 09/27/25 09:02 Thrive Assessment: Date of Thrive Assessment Date Thrive assessed 04/19/25 09/27/25 09:02 Coding Level of Care Code Est Pt Level 4 (14448) Complex visit Add On G2211 Diagnoses Hypertension I10 Morbid obesity E66.01 Dental abscess K04.7 Assessment & Plan Assessment & Plan (1) Hypertension: Code(s): I10 - Essential (primary) hypertension Category: Medical Plan: Controlled. Continue losartan 50 mg daily (2) Morbid obesity: Code(s): E66.01 - Morbid (severe) obesity due to excess calories Category: Medical Plan: Commended on weight loss efforts. He is referred to weight management for further assistance with weight loss and has a appointment in 12/2025. Discussed that and do not manage phentermine in the office. Will order Zepbound to help with weight loss and reduce complications secondary to his weight as well as for renal protection and cardiovascular protection and overall metabolic health. Encouraged to continue with diet higher in protein, fruits, vegetables and limiting refined sugars, simple carbohydrates, highly processed foods. Recommend 150 minutes of moderate exercise weekly (3) Dental abscess: Code(s): K04.7 - Periapical abscess without sinus Category: Medical Plan: Continue with clindamycin as prescribed, reassuring that pain is improving slightly. If after course of clindamycin advised to follow-up with dentist but also reach out to the office, can consider CT of the face. Follow-up for croup canal as scheduled Plan Follow-up in the office as scheduled for physical exam. Labs to be completed below Orders: Orders Hemoglobin A1c 09/27/25 E66.01 - Morbid (severe) obesity due to excess calories, I10 - Essential (primary) hypertension TSH reflex Free T4 09/27/25 E66.01 - Morbid (severe) obesity due to excess calories, I10 - Essential (primary) hypertension Basic Metabolic Panel 09/27/25 E66.01 - Morbid (severe) obesity due to excess calories, I10 - Essential (primary) hypertension Medications: New tirzepatide (weight loss) (Zepbound) for 4 weeks 2.5 mg (0.5 mL) subcut QWEEK 2 mL 0RF E66.01 - Morbid (severe) obesity due to excess calories, R63.5 - Abnormal weight gain, R73.03 - Prediabetes, Z98.84 - Bariatric surgery status Patient Instructions: Portal: [email or web address] click patient portal Enter information including medical record
[2025-09-27 09:05] VITALS: BP 144/76; PULSE 85; RESP 18; TEMP 36.6; O2SAT 98; BMI 44.3
--- OUTSIDE RECORDS SUMMARY | 2025-09-27 09:18 | XMS_ITS | Encounter Summary ---
Author Organization [employer] Address [address] [place] [address] 7 [place] [address] Care Team Providers Care Voice Network Engineer Name Role Phone Ad Shearer MD Primary Care Prov ider Reason for Visit * Reason Onset Date Comments Triage 04/01/2023 Encounter Details Date Type Department Care Team ([facility] Contact Info) Description 04/01/2023 Telephone C [facility] [address] [place] [address] Ad Shearer MD [address] [place] [address] Triage Social History Tobacco Use Types Packs/Day [...] 04/01/2023 9:09 AM EDT Called pt. Via [facility] rent control office manager [phone] Jacqueline. Pt. States that he called his Supervisor Silvering Department to make an appt. Donna Begum II at [facility] in [place] on [facility]. And his referral is for his Plantar Fasciitis. Pt. Needs new referral to Supervisor Silvering Department for his DX. Left foot Plantar fascitis. [...] accepted this outcome Please contact pt at [phone] Uruguayan Speaker documented in this encounter Plan of Treatment Not on file documented as of this encounter Visit Diagnoses Not on filedocumented in this encounter Additional Health Concerns Assessment Noted Time PHQ-9 Depression Total Score: 0 02/07/20 23 2:58 PM EDT documented as of this encounter Care Teams Voice Network Engineer Relationship Specialty Start Date End Date Ad Shearer MD [address] [place] [id number] PCP - General Internal Medicine 03/24/20 03/02/24 documented as of this encounter
--- OUTSIDE RECORDS SUMMARY | 2025-09-27 09:18 | XMS_ITS | Clinical Summary ---
Author Organization Patient Business Ser [facility] Address [address] [place] [address] Care Team Providers Care Lead Esthetician Name Role Phone Unavailable Primary Care Provider [...] disease) Depression DX:Depression Anxiety DX:Anxiety Bipolar disorder (CMS/FORMERLY [facility] V2 4, CMS/FORMERLY [facility] V28) DX:Bipolar disorder (FORMERLY [facility]) Environmental allergies DX:Envir onmental allergies Family History [...] Upcoming Encounters Date Type Department Care Team ([facility] st Contact Info) Description 12/08/2025 3:00 PM EST Consult Bariatric Surgery - [address] [place] [address] Tim Ventura MD [address] [place] [address] Health Maintenance Due Date Last Done Comments DTaP,Tdap,and Td Vaccines (1 - Tdap) 2007 Hepatitis B Vaccines (1 of 3 - 19+ 3-dose series) 2007 HPV Vaccines (1 - 3-dose SCD M series) 2015 Cholesterol Screening (Lipid Panel) 06/26/2024 HIV Screening 06/26/2024 Hepatitis C Screening 06/26/2024 Social Influencers of Health Screening 06/26/2024 Depression Screening 11/03/2024 COVID-19 Vaccine (1 - 2024-2 6 season) 2025 Influenza Vaccine (#1) 2025 RSV Immunization Adult Patie nts (1 - 1-dose 75+ series) 2063 HIB Vaccines Aged Out No longer eligi [...] on patient's age to complete this topic Insurance [facility]
--- OUTSIDE RECORDS SUMMARY | 2025-09-27 09:18 | XMS_ITS | Encounter Summary ---
Author Organization [employer] Address [address] [place] [address] 7 [place] [address] Care Team Providers Care Skiver Counter Name Role Phone Ad Shearer MD Primary [...] on filedocumented in this encounter Care Teams Skiver Counter Relationship Specialty Start Date End Date Ad Shearer MD [address] [place] [address] PCP - General Internal Medicine 03/24/20 03/02/24 documented as of this encounter
--- OUTSIDE RECORDS SUMMARY | 2025-09-27 09:18 | XMS_ITS | Clinical Summary ---
Author Organization [employer] Address [address] [facility] 7t [place] [address] Care Team Providers Care Software Engineering Analyst Name Role Phone Unavailable Primary Care Provider [...] LDL-C. Casa CARRASQUILLO et al. JUNE. 2013;310(19): 5085-0143 (http://education.Ezuza/faq/FKO588) Non-HDL Cholesterol 117 <130 mg/dL (calc) CONVERTED [...] a test for HCV RNA (test code 08984) is suggested. For additional information please refer to http://AddIn Social.Trovix/faq/RWL71l1 (This link is being provided for informational/ educational purposes only.) HEPATITIS C ANTIBODY NON-REACT THIAGO NON-REACT THIAGO [facility] INDEX 0.10 <1.00 [facility] Comment: HCV antibody was non-reactive. There is no laboratory evidence of HCV infection. In most cases, no further action is required. However, if recent HCV exposure is suspected, a test for HCV RNA (test code 39685) is suggested. For additional information please refer to http://Vivakor/faq/BYG30r3 (This link is being provided for informational/ educational purposes only.) HEPATITIS C ANTIBODY NON-REACT THIAGO NON-REACT THIAGO [facility] INDEX 0.10 <1.00 [facility] Comment: HCV antibody was non-reactive. There is no laboratory evidence of HCV infection. In most cases, no further action is required. However, if recent HCV exposure is suspected, a test for HCV RNA (test code 76418) is suggested. For additional information please refer to http://Vivakor/faq/EDX77x9 (This link is being provided for informational/ educational purposes only.) 05/22/2020 2:51 PM EDT Ad Oviedo MD HISTORICAL/NON ORD ERABLE LABS Final Result [facility] [address] * HIV 1/2 ANTIGEN/ANTIBODY,FOURTH GENERATION W/RFL (05/22/2020 2:51 PM EDT) HIV-1/2 ANTIGEN AND ANTIBODIES, 4TH GENERATION W/ REFLEX NON-REACT THIAGO NON-REACT THIAGO [facility] Comment: HIV-1 antigen and HIV-1/HIV-2 [...] purpose. For additional information please refer to http://AddIn Social.Trovix/faq/YWO866 (This link is being provided for informational/ educational purposes only.) The performance of this assay has not been clinically validated in patients less than 2 years old. HIV-1/2 ANTIGEN AND ANTIBODIES, 4TH GENERATION W/ REFLEX NON-REACT THIAGO NON-REACT THIAGO [facility] Comment: HIV-1 antigen and HIV-1/HIV-2 [...] purpose. For additional information please refer to http://Vivakor/faq/UYB618 (This link is being provided for informational/ educational purposes only.) The performance of this assay has not been clinically validated in patients less than 2 years old. HIV-1/2 ANTIGEN AND ANTIBODIES, 4TH GENERATION W/ REFLEX NON-REACT THIAGO NON-REACT THIAGO [facility] Comment: HIV-1 antigen and HIV-1/HIV-2 [...] purpose. For additional information please refer to http://AddIn Social.Trovix/faq/NQL404 (This link is being provided for informational/ educational purposes only.) The performance of this assay has not been clinically validated in patients less than 2 years old. 05/22/2020 2:51 PM EDT us Ad Oviedo MD LAB BLOOD ORDERABL ES Final Result [facility] [address] [place] [address], from Last 3 Months or Most Recently Relevant to Health Maintenance [facility]
--- OUTSIDE RECORDS SUMMARY | 2025-09-27 09:18 | XMS_ITS | Data Portability ---
Author Organization [facility], [facility] Address [address] [place] [address] Care Team Providers Care Subacute Nurse Name Role Phone JOSE LUIS MIX Primary Care Provider Assessment Encounter Date Assessment Date Assessment LastModified by Organization Details LastModified Time 01/07/2025 01/07/2025 A: Increased reps with Heel/Toe raises seated. Added STM to gastroc/soleus today, which helped patient have increased inversion ROM afterward. P: Increase time with STM N/V to 10 minutes. [email or web address] Not available 01/07/2025 16:36:24 01/11/2025 01/11/2025 A: Patient with steady ther-x progressions as shown by flow sheet, reviewed HEP importance with emphasis on stretching and staying consistent with 3x a day. P: Increase time with STM N/V to 10 minutes. Not available 01/11/2025 14:44:12 01/14/2025 01/14/2025 A: Patient with steady ther-x progressions as shown by flow sheet, reviewed HEP importance with emphasis on stretching and staying consistent with 3x a day. P: Increase time with STM N/V to 10 minutes. Not available 01/14/2025 08:30:54 01/21/2025 01/21/2025 A: Patient with increased stability and mobility, no cuing required for form/posture, shows good understanding of HEP and RICME importance. P: Increase time with STM N/V to 10 minutes. Not available 01/21/2025 15:45:29 Plan of Treatment Reminders Order Date Submit Date Provider Last Modified By Organization Details Last Modified Time Details Appointments None record ed. Lab None record ed. Referral None record ed. Procedures None record ed. Surgeries None record ed. Imaging None record ed. Medication Orders None record ed. Patient TargetsNo targets recorded. Patient InstructionsNo instructions recorded. Reason for Referral None Reported. Results Created Date Observation Date Name Description Value Unit Range Abnormal Flag Note LastModifiedBy Organization Detail LastModifiedTime 01/26/2001/25/2025 US, duple x, venou s, lower extre mity No observ ation record ed. [email or web address] [facility] [address], [place], [address], 01/27/2025 15:05:46 01/26/2001/25/2025 US, duple x, venou s, lower extre mity No observ ation record ed. HAFSA [facility] [address], [place], [address], 01/26/2025 10:51:57 Result Notes None recorded. Problems Name Problem SNOMED Code Status Onset Date Resolution Date Notes Provider Name and Address Organization Details Recorded Time Closed fracture of ankle 19048549 Active 025 Jesisca Donovan, PT [address] [facility], [place], [address] , [facility] 12:41:19 Problem Notes None recorded. Procedures Surgical History Date Name Laterality Status Provider Name and Address Organization Details Recorded Time 5 69784 Therapeutic Exercise (1:1) cancelled Jessica Donovan, PT [address] [facility], [place], [address], [facility] 01/28/2025 12:41:18 5 04746 Therapeutic Exercise (1:1) cancelled Christiano Kimball, PT [address], [place], [address], [facility] 01/24/2025 10:52:41 5 26460 Therapeutic Exercise (1:1) completed Jose Del Valle, FIELD SALES AGENT [address], [place], [address], [facility] 01/21/2025 15:45:09 5 93460 Therapeutic Exercise (1:1) completed Jose Del Valle FIELD SALES AGENT [address], [place], [address], [facility] 01/14/2025 16:17:03 5 80883: Manual therapy completed Jose Del Valle PTA [address], [place], [address], [facility] 01/14/2025 08:30:54 5 26721 Therapeutic Exercise (1:1) completed Jose Del Valle PTA [address], [place], [address], [facility] 01/11/2025 14:44:24 5 68114: Manual therapy completed Jose Del Valle PTA [address], [place], [address], [facility] 01/11/2025 08:52:31 5 99252 Therapeutic Exercise (1:1) completed Christiano Kimball, PT [address], [place], [address], [facility] 01/07/2025 16:34:51 5 72404: Hot or Cold Pack completed Christiano Kimball, PT [address], [place], [address], [facility] 01/07/2025 16:36:35 5 28508: Manual therapy completed Christiano Kimball PT [address], [place], [address], [facility] 01/06/2025 08:33:17 5 77244 Therapeutic Exercise (1:1) completed Rupal Romero PTA [address], [place], [address], [facility] 12/30/2024 14:58:12 5 18450: Manual therapy completed Rupal Romero, FIELD SALES AGENT [address], [place], [address], [facility] 12/30/2024 14:58:42 5 43666 Therapeutic Exercise (1:1) completed Christiano Kimball, PT [address], [place], [address], [facility] 12/24/2024 07:27:26 5 98303: Low complexity PT Eval completed Christiano Kimball, PT [address], [place], [address], [facility] 12/24/2024 07:27:38 Imaging Results None recorded. Procedure Notes None recorded. Medical Equipment None Reported. Allergies Allergen ID Allergen Name Allergen Category Reaction Reaction Severity Criticality Documentation Date Start Date Code Code System Note Provider Name and Address Organization Details Recorded Time 801780 Motrin medicatio n Not available Not available Not available 10/06/202478080 8 RxNorm Farida Terry castaneda, [facility] 4 08:50:10 Medications Name Sig Start Date Stop Date Status Note LastModified by Organization Details LastModified Time prednisone 10 mg tablet TAKE 4 TABLET(S) BY MOUTH ONCE A DAY X2 DAYS, THEN 3 TABS X2 DAYS, 2 TABS X2 DAYS, 1 TAB X2 DAYS active Not Available Not Available No t Available azithromycin 250 mg tablet TAKE 2 TABLETS BY MOUTH TODAY, THEN TAKE 1 TABLET DAILY FOR 4 DAYS DIRECTED active Not Available Not Available No t Available nystatin 100,000 unit/gram topical cream APPLY TOPICALLY TO RASH TWICE A DAY active Not Available Not Available No t Available omeprazole 20 mg capsule,delay ed release TAKE 1 CAPSULE BY MOUTH TWICE A DAY FOR 30 DAYS active Not Available Not Available No t Available Eliquis 5 mg tablet TAKE 1 TABLET BY MOUTH TWICE A DAY active Not Available Not Available No t Available Eliquis DVT-PE Treatment 30-Day Starter 5 mg (74 tablets) in dose pack TAKE DIRECTED active Not Available Not Available No t Available Vitals Date Recorded Body height Body mass index (BMI) Body weight Provider Name and Address Organization Details Last Updated DateTime 01/18/2025 172.72 cm 42.6 kg/m2 821093.86 g Farida Stewart MA [facility] 01/18/2025 15:48:49 Social History None recorded. Functional Status None recorded. Mental Status None recorded. Family History Nothing Reported. Medical History No medical history recorded. Past Encounters Encounter ID Performer Location Encounter Start Date Encounter Closed Date Diagnosis/Indication Diagnosis SNOMED-CT Code Diagnosis ICD10 Code Diagnosis IMO Codes Diagnosis Note [id number] Justine Wakefield PA-C [facility] [address] [place] [address] 10/06/2024 08:38:25 10/25/2024 11:03:48 Pain in right foot 8630960731 22834 M79.671 [id number] Claudio Corral PA-C [facility] [address] [place] [address] 10/19/2024 09:27:00 11/15/2024 14:15:02 Acute ankle pain [id number] [facility] M25.571 [id number] Closed fra cture of talus 14700395 S92.101A [id number] Pain of ri ght lower leg 6525998967 58115 M79.091 [id number] Justine Wakefield PA-C [facility] [address] [place] [address] 11/17/2024 09:00:07 11/29/2024 15:28:22 Acute ankle pain [id number] [facility] M25.571 [id number] Closed fra cture of talus 33036357 S92.101A 7516124773 Pain of ri ght lower leg 5082165043 11671 M79.094 [id number] [id number] Justine Wakefield PA-C [facility] [address] [place] [address] 12/08/2024 15:49:16 12/15/2024 11:56:58 Acute ankle pain 5422133810 91 M25.571 [id number] Closed fra cture of talus 27147670 S92.101A 5428338278 Pain of ri ght lower leg 2832998891 32891 M79.510 [id number] Christiano Kimball, PT [facility] [address] [place] [address] 12/28/2024 10:51:10 12/28/2024 13:52:27 Closed fracture of ankle 42816565 S82.891D [id number] Rupal Romero, FIELD SALES AGENT [facility] [address] [place] [address] 12/30/2024 13:06:25 12/30/2024 14:12:18 Closed fracture of ankle 78610608 S82.891D [id number] Christiano Kimball, PT [facility] [address] [place] [address] 01/07/2025 15:26:00 01/07/2025 16:28:31 Closed fracture of ankle 77938042 S82.891D [id number] Jose Del Valle, FIELD SALES AGENT [facility] [address] [place] [address] 01/11/2025 13:37:05 01/11/2025 14:57:09 Closed fracture of ankle 69383705 S82.891D [id number] Jose Del Valle, FIELD SALES AGENT [facility] [address] [place] [address] 01/14/2025 15:25:47 01/17/2025 07:21:22 Closed fracture of ankle 55774534 S82.891D [id number] [facility] [address] [place] [address] 01/18/2025 15:38:24 02/04/2025 15:51:25 Pain in right foot 7451763481 16129 M79.411 [id number] Jose Del Valle, FIELD SALES AGENT [facility] [address] [place] [address] 01/21/2025 14:50:18 01/24/2025 07:14:21 Closed fracture of ankle 09668775 S82.891D [id number] Health Concerns Section Related Observation LastModified by Organization Detai ls LastModified Time None Recorded Concern Status LastModified by Organization Details LastModified Time None Recorded Advance Directives Directive None Recorded Payers Insurance Date Sequence Insurance Name Policy Number Policy Abdullahi Covered Member ID Abdullahi Member ID Guarantor Name 02/26/2025 1 [employer] [id number] 4 Kyle Flood Lopez [id number] SE Kyle John Notes Date Note Type Note Provider Name and Address Organization Details Recorded Time 01/07/2025 text/html Pt states that his pain was a 5/10 at worst today, and that it worsened throughout the day because he had to work today. Christiano Kimball, PT [address], [place], [address], [facility] 01/07/2025 16:37:47 01/11/2025 text/html Pt states that his pain is about 4/10 currently, states he felt good after last visit with minimal pain or soreness. Jose Del Valle, FIELD SALES AGENT [address], [place], [address], [facility] 01/11/2025 14:45:28 01/14/2025 text/html Pt states feeling great with no complaints of pain currently. Jose Del Valle, FIELD SALES AGENT [address], [place], [address], [facility] 01/14/2025 16:21:42 01/18/2025 text/html I am seeing this patient under the supervision of Dr. Colmean who was available but who did not see the patient.Clinical update: Patient is here today for repeat x-rays and reevaluation. He has been utilizing his brace. Reports it took a while to get into [facility] so he started physical therapy late, he only went to 4 sessions so far. Reports he has been having increased pain in the foot as he has been increasing his activity. Physical exam, imaging review, impression, and plan for today's visit updated below.HPI: Patient is a 34-year-old male presenting to the office today for evaluation of right ankle injury sustained on 10/04/2024 in which she was putting up [place] lights at his and his 's new house on a ladder, however the latter was not stable and he fell around 5 to 8 feet. Reports he fell straight onto his right foot and ankle. He was seen at an outside facility where x-rays and a CT scan were obtained and revealed a nondisplaced posterior medial talus fracture. He has been nonweightbearing on the right lower extremity since the injury. He has a knee scooter which has been helping him with this. He is here today for orthopedic consultation.Past family, medical, social history and review of systems has been reviewed, updated and is located in the patient's chart.Examination: The patient is well appearing, alert and oriented x3 and in no acute distress. On inspection of the right foot and ankle, there is no edema, erythema, ecchymosis or deformity. Skin is intact, no open wounds. Patient is mildly tender around the dorsal lateral hindfoot. Otherwise nontender about the foot and ankle. Patient is able to range the ankle in all planes. Neurovascularly intact distally. No gross instability. Calf is supple, nontender. Achilles tendon nontender, no palpable defect noted.Previous films: Three-view x-rays of the right ankle reveal no obvious acute fractures or dislocations. No obvious cortical inconsistency about the talus to indicate change in fracture alignment.CT scan of the right ankle reveal a nondisplaced posterior medial talus fracture. No other acute fractures or dislocations noted.Impression: Right posterior medial talus nondisplaced fracture 10/04/2024lan: I discussed my findings and the situation with the patient. We discussed potential treatment options at this time. Patient will continue with physical therapy and wean from the brace as tolerated. Another work note with restrictions was provided today. He will follow-up in 6 weeks for reevaluation, no x-rays needed at that time. At that time we can hopefully have him return to full duty at work. Patient understands and agrees to this plan. All questions were answered.Speech recognition behavior therapist software was used to create portions of this document. An attempt at proofreading has been made to minimize errors. Please call for corrections. Justine Wakefield PA-C [address], [place], [address], [facility] 01/18/2025 16:13:46 01/21/2025 text/html Pt states feeling great with no complaints of pain currently. Jose Del Valle PTA [address], [place], [address], [facility] 01/21/2025 15:45:43
[2025-09-27 09:37] VITALS: BP 136/78
== END 2025-09-27 09:48 | disposition home or self-care (01) ==
LOC: HO.HMCHD 08:51
PROVIDERS: PCP Physician Assistant; Visit Provider Physician Assistant
DX: I10 Essential (primary) hypertension (principal); E66.01 Morbid (severe) obesity due to excess calories; K04.7 Periapical abscess without sinus

== ENCOUNTER 2025-09-27 09:51 | Outpatient (REF) | payer BC, SELFPAY ==
--- OUTSIDE RECORDS SUMMARY | 2025-09-27 11:38 | XMS_ITS | Patient Health Record ---
Author Organization [facility] Address [address] [place] [address] Care Team Providers Care Physically Impaired Teacher Name Role Phone Abimael gaffney, Ad Primary Care Prov ider Unavailable Cristi Crawford Jr Unavailable Allergies No Known Allergies Reason For Referral No Information Medications Medication SIG (Take, Route, Frequency, Duration) Notes Start Date End Date Status Cetirizine HCl 10 MG Tablet Oral; Duration: 30 Active Vistaril 25 MG Capsule 1 capsule as need ed Orally every 8 hrs; Duration: 30 day(s) Active tylenol 1 tab Oral; Duration : 14 days Active cloNIDine HCl 0.1 MG Tablet Oral; Duration: 30 Active Meloxicam 7.5 MG Tablet Oral; Duration: 30 Active Topiramate 25 MG Tablet 1 tablet Orally Once a day; Duration: 30 day(s) Active Omeprazole 20 MG Capsule Delayed Release 1 capsule Orally Twice a day; Duration: 30 days 06/06/2022 Active Doxepin HCl 10 MG Capsule Oral; Duration: 30 Active Immunizations Vaccine Route Administration Date Status Comme nts Influenza Unknown 09/19/2021 Administered Influenza Unknown 07/04/2022 Administered Social History Tobacco Use: Social History Observation Description Date Details (start date - stop date) Never Smoker NA - NA Social History Drugs/Alcohol: Social Info Question Answer Notes Alcohol Screen Did you have a drink containing alcohol in the past year? No Points 0 Interpretation Negative Tobacco Use: Social Info Question Answer Notes Tobacco Use/Smoking Patient is a nonsmoker Additional Details Category Social Info Options Details Miscellaneous: Marital status: Occupation: works full-time Section Notes: He does use marijuana He does use marijuana Problems Problem Type SNOMED Code ICD Code Onset Dates Problem Status W/U Status Risk Notes Problem Rectal bleeding (32524031) Rectal bleeding (K62.5) Active confirmed Problem Epigastric pain (50631923) Epigastric pain (R10.13) Active confirmed Problem Weight loss (101604300) Weight loss (R63.4) Active confirmed Problem Elevated liver enzymes level (723255933) Elevated LFTs (R79.89) Active confirmed Problem Abnormal feces (153790356) Abnormal findings in stool (R19.5) Active confirmed Problem Duodenal ulcer (13619272) Duodenal ulcer (K26.9) Active confirmed Encounters Encounter Location Date Provider Diagnosis [facility] [address] [facility] [address] [place] [address] 10/28/2024 Cristi Crawford Jr Plan Of Treatment [...] Insured Coverage Start Date Coverage End Date [facility] [address] [place] [address] [id number] MASSIEL LANDRY Self - patient is the [...]
[2025-09-27 14:18] LABS: Anion Gap 11 (12-20); Blood Urea Nitrogen 16 mg/dL (9-16); Calcium 9.5 mg/dL (8.4-10.2); Carbon Dioxide 25 mmol/L (22-29); Chloride 107 mmol/L (96-108); Estimated Glomerular Filt Rate > 60; Potassium 3.9 mmol/L (3.3-5.1); Sodium 139 mmol/L (135-145)
== END 2025-09-27 09:52 | disposition home or self-care (01) ==
LOC: HO.10HDL 09:51
PROVIDERS: Visit Provider Physician Assistant
DX: I10 Essential (primary) hypertension (principal); E66.01 Morbid (severe) obesity due to excess calories; Z13.1 Encounter for screening for diabetes mellitus
CPT/HCPCS: 36415; 80048; 83036; 84443